=== PATIENT | female | born 1940 | race Caucasian/White ===

== ENCOUNTER 2016-12-20 10:49 | Inpatient (IN) | payer MEDICARE, OTHER ==
[2016-12-20] MEDS ORDERED: Vancomycin 1GM/ Ns 250ML*** 250 ML IV ONE ×2 (11:22→11:33)
--- NOTE | 2016-12-20 11:29 | ERPHSYRPT ---
- History of Present Illness Time Seen by Provider: 12/20/16 11:16 Source: patient Exam Limitations: clinical condition Patient Subjective Stated Complaint: bit by own dog on wednesday on right forearm Triage Nursing Assessment: large open wound to right forearm with slight odor and minimal drainage. redness to area. Physician History: PATIENT WITH HISTORY OF TYPE 2 DIABETES WAS BITTEN OVER HER RIGHT FOREARM 2 DAYS AGO SUSTAINED LACERATIONS, PUNCTURE WOUNDS, PAIN WITH SWELLING, REDNESS AND DRAINAGE. DENIES FEVER, CHILLS OR RED STEAKS. Occurred: days ago Method of Injury: other (DOG BITE FAMILY PET) Severity of Pain-Max: mild Severity of Pain-Current: mild Extremities Pain Location: forearm: right Modifying Factors: Improves With: nothing Allergies/Adverse Reactions: Sulfa (Sulfonamide Antibiotics) Allergy (Mild, Verified 12/20/16 11:00) Hives Home Medications: Aspirin 81 mg PO DAILY 08/19/14 [History] Clonazepam 0.5 mg [Klonopin 0.5 MG] 1 mg PO BID 08/19/14 [History] Glimepiride 2 mg [Amaryl 2 MG] 2 mg PO DAILY 08/19/14 [History] Levothyroxine Sodium 50 Mcg [Synthroid 50 Mcg] 50 mcg PO DAILY 08/19/14 [ History] Metoprolol Succinate 50 mg [Toprol Xl 50 MG] 50 mg PO DAILY 08/19/14 [ History] Sertraline HCl 50 mg [Zoloft 50 mg Tablet] 50 mg PO HS 08/19/14 [History] Ergocalciferol (Vitamin D2) [Vitamin D2] 50,000 unit PO DAILY 12/20/16 [History] Lisinopril 10 mg [Zestril 10 MG] 10 mg PO DAILY 12/20/16 [History] Hx Tetanus, Diphtheria Vaccination/Date Given: Yes (2015) Hx Influenza Vaccination/Date Given: Yes Hx Pneumococcal Vaccination/Date Given: Yes - Review of Systems Constitutional: No Symptoms Respiratory: No Symptoms Cardiac: No Symptoms Abdominal/Gastrointestinal: No Symptoms Genitourinary Symptoms: No Symptoms Musculoskeletal: Injury, Joint Pain, Joint Swelling Skin: Cellulitis Psychological: No Symptoms Endocrine: No Symptoms - Past Medical History Pertinent Past Medical History: Yes Neurological History: Migraines, Peripheral Neuropathy Cardiac History: Hypertension Respiratory History: No Pertinent History Endocrine Medical History: Diabetes Type II, Hypothyroidism, Other Musculoskeletal History: Arthritis, Degenerative Disk Disease, Rheumatoid Arthritis GI Medical History: No Pertinent History History: Other Psycho-Social History: Depression Female Reproductive Disorders: No Pertinent History Other Medical History: neuropathy in L hand, history of UTI, history of ruptured disc in L-spine - Past Surgical History Past Surgical History: Yes Neuro Surgical History: No Pertinent History Cardiac: No Pertinent History Respiratory: No Pertinent History Gastrointestinal: Appendectomy, Cholecystectomy Musculoskeletal: Joint Replacement, Orthopedic Surgery Female Surgical History: Section, Hysterectomy Other Surgical History: L knee replacement, melanoma removed from leg. skin grafts --2009 - Social History Smoking Status: Never smoker Exposure to second hand smoke: No Drug Use: none Patient Lives Alone: No - Nursing Vital Signs Nursing Vital Signs: Initial Vital Signs Temperature Source Oral Pulse Rate 60 Respiratory Rate 18 Blood Pressure [Left Arm] 123/59 Pain Intensity 0 - Physical Exam General Appearance: no apparent distress Cardiovascular/Respiratory Exam: chest non-tender Abdominal Exam: non-tender, soft Back Exam: normal inspection, normal range of motion Wrist Exam: soft tissue tenderness, swelling (THERE IS A 4CM L-SHAPED SUPERFICIAL LACERATION RIGHT FOREARM, DISTAL 3RR FOREARM SURROUNDING ERYTHERMA SWELLING 10CM X 9CM, SEROSANGUINOUS DRAINAGE, RIGHT RADIAL PULSE) Neuro/Tendon Exam: normal sensation Mental Status Exam: alert, oriented x 3 SpO2 Interpretation: normal SpO2: 98 Oxygen Delivery: Room Air Ordered Tests: Active Orders 24 hr Category Date Time Status Up With Assistance ROUTINE Activity 12/20/16 12:17 Ordered Accucheck ACHS Care 12/20/16 12:17 Ordered Admission/Status Order ROUTINE Care 12/20/16 12:17 Ordered Call Admit Doctor for Orders ON ADMISSION Care 12/20/16 12:19 Ordered Code Status Order ROUTINE Care 12/20/16 12:17 Ordered IV Care Q6H Care 12/20/16 12:17 Ordered IV Insertion STAT Care 12/20/16 11:21 Active Vital Signs Q4H Care 12/20/16 12:17 Ordered Wound Care STAT Care 12/20/16 12:23 Ordered 1800 Calorie ADA Diet 12/20/16 Dinner Ordered FOREARM Stat Exams 12/20/16 11:31 Taken BLOOD CULTURE Stat Lab 12/20/16 11:35 Received BMP Stat Lab 12/20/16 11:30 Completed CBC W DIFF Stat Lab 12/20/16 11:30 Completed CULTURE,WOUND Stat Lab 12/20/16 11:21 Ordered Transfer Order Routine Transfer 12/20/16 12:16 Ordered Medication Summary Generic Name Dose Route Start Last Admin Trade Name Rey PRN Reason Stop Dose Admin Sodium Chloride 1,000 mls @ 100 mls/hr 12/20/16 11:30 12/20/16 11:36 Sodium Chloride 0.9% 1000 Ml IV 01/19/17 11:29 100 mls/hr .Q10H CALLIE Administration Vancomycin HCl 250 mls @ 167 mls/hr 12/20/16 11:22 12/20/16 11:36 Vancomycin 1gm/ Ns 250ml IV 12/20/16 12:51 167 mls/hr STAT ONE Administration Discontinued Medications Generic Name Dose Route Start Last Admin Trade Name Rey PRN Reason Stop Dose Admin Vancomycin HCl Confirm 12/20/16 11:33 Vancomycin 1gm/ Ns 250ml Administered 12/20/16 11:34 Dose 250 mls @ ud IV .STK-MED ONE Lab/Rad Data: Laboratory Result Diagrams 12/20/16 11:30 12/20/16 11:30 Laboratory Results 12/20/16 12/20/16 Range/Units 11:30 11:30 WBC 9.9 (4.0-10.5) K/mm3 RBC 4.68 (4.1-5.4) M/mm3 Hgb 13.8 (12.0-16.0) gm/dl Hct 42.4 (35-47) % MCV 90.6 (78-100) fl MCH 29.5 (26-32) pg MCHC 32.5 (32-36) g/dl RDW 14.5 H (11.5-14.0) % Plt Count 189 (150-450) K/mm3 MPV 11.4 H (6-9.5) fl Gran % 74.5 H (36.0-66.0) % Lymphocytes % 11.7 L (24.0-44.0) % Monocytes % 9.7 (0.0-12.0) % Eosinophils % 3.7 (0.00-5.0) % Basophils % 0.4 (0.0-0.4) % Basophils # 0.04 (0-0.4) Sodium 137 (136-145) mEq/L Potassium 4.4 (3.5-5.1) mEq/L Chloride 101 (98-107) mEq/L Carbon Dioxide 27.0 (21-32) mEq/L Anion Gap 13.1 (5-15) MEQ/L BUN 16 (9-20) mg/dL Creatinine 1.20 (0.55-1.30) mg/dl Estimated GFR 46 ML/MIN Glucose 227 H (70-110) MG/DL Calcium 9.0 (8.5-10.1) mg/dL - Progress Progress Note: 12/20/16 11:29 TETNUS STATUS UP TO DATE, PATIENT GIVEN IV FLUIDS, NORMAL SALINE 100ML/HR, VACOMYCIN 1GM IVPB AFTER 2 SETS OF BLOOD CULTURES OBTAINED Discussed with DrAnthony: Jaye Blanc (AT 1213 FOR OBSERVATION) Will see patient in: hospital (observation) - Departure Time of Disposition: 11:25 Departure Disposition: Observation Clinical Impression: CELLULITIS RIGHT FOREARM, DOG BITE RIGHT FOREARM Condition: Stable Critical Care Time: No Referrals: FAY PIEDRA MD [Primary Care Provider] -
[2016-12-20] MEDS ORDERED: Sodium Chloride 0.9% 1000 ML 1,000 ML IV SCH (11:30)
[2016-12-20 11:51] LABS: BASOPHIL % 0.4 % (0.0-0.4); Eosinophil % 3.7 % (0.00-5.0); Granulocytes % 74.5 % (36.0-66.0); Lymphocytes % 11.7 % (24.0-44.0); Mean Cell Volume 90.6 fl (78-100); Mean Corpuscular Hemoglobin 29.5 pg (26-32); Mean Platelet Volume 11.4 fl (6-9.5); Monocytes % 9.7 % (0.0-12.0); Platelet Count 189 K/mm3 (150-450); Red Blood Count 4.68 M/mm3 (4.1-5.4); Red Cell Distribution Width 14.5 % (11.5-14.0); White Blood Count 9.9 K/mm3 (4.0-10.5)
[2016-12-20 11:56] LABS: ANION GAP 13.1 MEQ/L (5-15); Potassium 4.4 mEq/L (3.5-5.1)
[2016-12-20] MEDS ORDERED: MORPHINE SULFATE 4 MG INJ IV PRN (12:17)
[2016-12-20] MEDS ORDERED: TYLENOL 325 MG PO PRN (12:17)
[2016-12-20] MEDS ORDERED: Zofran 4 MG/2 ML VIAL IV PRN (12:17)
[2016-12-20] MEDS ORDERED: Cleocin Phosphate IV 600 MG/4 ML IV SCH (14:00)
[2016-12-20] MEDS: Zosyn 3.375GM/100 Ml D5W 100 ML IV SCH ×3 (14:06→23:26)
[2016-12-20] MEDS: ECOTRIN 81 MG PO SCH (14:57)
[2016-12-20] MEDS: ENOXAPARIN SODIUM SQ SCH (14:57)
[2016-12-20] MEDS: CLINDAMYCIN-D5W 900 MG/50 ML*** 50 ML IV SCH ×2 (15:09→22:10)
[2016-12-20] MEDS: Sodium Chloride 0.9% 1000 ML 1,000 ML IV SCH (16:01)
[2016-12-20] MEDS: NovoLOG Insulin SQ PRN (16:20)
[2016-12-20] MEDS ORDERED: PHARMACY DOSING REQUIRED: VANCOMYCIN IV SCH (19:00)
--- NOTE | 2016-12-20 20:43 | XRAY ---
Indication: Distal forearm dog bite. Comparison: None 2 views of the right forearm demonstrates distal anterior soft tissue swelling presumed dog bite. No underlying acute fracture, dislocation, or radiopaque foreign body. 3 mm soft tissue calcification adjacent to the lateral epicondyle either degenerative versus granulomatous.
[2016-12-20] MEDS ORDERED: Klonopin 0.5 MG PO SCH (22:00)
[2016-12-20] MEDS: ZOLOFT 50 MG TABLET PO SCH (22:09)
[2016-12-20] MEDS: Klonopin 0.5 MG PO SCH (22:10)
[2016-12-21] MEDS: Sodium Chloride 0.9% 1000 ML 1,000 ML IV SCH ×2 (03:45→17:17)
[2016-12-21] MEDS: CLINDAMYCIN-D5W 900 MG/50 ML*** 50 ML IV SCH ×3 (05:00→22:24)
[2016-12-21] MEDS: Zosyn 3.375GM/100 Ml D5W 100 ML IV SCH ×3 (05:33→18:37)
[2016-12-21] MEDS: VANCOCIN 1 GM VIAL*** 1 GM in Sodium Chloride 0.9% 250 ML 250 ML IV SCH (06:38)
[2016-12-21] MEDS ORDERED: DIPRIVAN 200 MG/20 ML IV ONE (08:00)
[2016-12-21] MEDS ORDERED: Decadron 4 MG INJ IV ONE (08:00)
[2016-12-21] MEDS ORDERED: SUBLIMAZE 100 MCG/2 ML IV ONE (08:00)
[2016-12-21] MEDS ORDERED: TORAdol 30 mg Injection IJ ONE (08:00)
[2016-12-21] MEDS ORDERED: Zofran 4 MG/2 ML VIAL IV ONE (08:00)
[2016-12-21] MEDS: Amaryl 2 MG PO SCH (08:42)
--- NOTE | 2016-12-21 09:16 | HP ---
HISTORY OF PRESENT ILLNESS: Kim Mahajan is a 76 year old woman with past medical history of hypertension, coronary artery disease, diabetes mellitus, anxiety, hypothyroidism and obesity. She was reportedly bitten by her own dog on 12/18/2016. The dog bit her on the right forearm and she sustained wounds from that in that area. She started having increasing pain, swelling, redness and also odor and drainage from the wound this morning. She presented to the emergency room with the same. Upon initial evaluation in the emergency room she was noted to have blood pressure of 123/59, heart rate 60, respiratory rate 18. Upon initial evaluation in the emergency room she was noted to have 4 cm size laceration in the right forearm area with large area of surrounding erythema, edema. She was treated with Vancomycin IV x1. Subsequently she is being admitted for further monitoring and management. At the time of this evaluation the patient was still in the emergency room. She complained of pain, swelling, redness in right forearm area. She also complained of drainage and foul smell from area of laceration. PAST MEDICAL HISTORY: Prior history of dog bite. The patient also history of rheumatoid arthritis, degenerative disc disease, neuropathy in left hand, ruptured disc in lumbar spine. PAST SURGICAL HISTORY: Appendectomy, cholecystectomy, bilateral knee surgery, section, hysterectomy. ALLERGIES: SULFA. MEDICATIONS: Current medications were reviewed. FAMILY HISTORY: Noncontributory. SOCIAL HISTORY: The patient lives at home. No history of smoking. REVIEW OF SYSTEMS: Denies headache or dizziness. Denies fever. Denies chest pain, increased shortness of breath or cough. Denies abdominal pain, nausea or vomiting. Denies constipation or diarrhea. Denies urinary complaints. Complains of pain, swelling, foul smelling, pain and redness in right forearm area, wound with foul smelling discharge present in right forearm. PHYSICAL EXAMINATION: An elderly woman lying comfortably in bed, not in acute distress. VITAL SIGNS: Blood pressure 123/59, heart rate 60, respiratory rate 18. HEENT: Normocephalic. Pallor or icterus is noted. NECK: No JVD is present. CVS: S1, S2 present. RESPIRATORY: Breath sounds are bilaterally diminished and clear to auscultation. ABDOMEN: Soft, nontender. NEURO: She is alert, oriented x3. EXTREMITIES: No edema on bilateral lower extremities. Examination of right forearm reveals edema, erythema, locally increased temperature in distal right forearm. A 4 x 0.8 cm wide laceration superficial laceration is present distal part of right forearm. Scanty serosanguinous drainage is present, foul smelling discharge is present. Other smaller areas of about 2 to 3 mm size areas of bite way are noted near this laceration. Local tenderness is present. Radial pulses are felt. Examination of right wrist reveals no redness, no swelling. Range of movement of right wrist is not painful. Examination of right hand reveals no swelling, redness, tenderness. Range of motion of right hand is free. The rest of right forearm area shows, except noted above, shows no redness, tenderness or swelling. LABORATORY DATA AND TESTS: Labs on admission were essentially unremarkable. The patient underwent forearm x-rays results of which are not available at this time. ASSESSMENT: A 76 year old man with impression: 1) Cellulitis of right forearm. 2) Dog bite, right forearm. 3) Diabetes mellitus. 4) Hypertension/coronary artery disease. 5) Anxiety. 6) Hypothyroidism. 7) Hyperlipidemia. PLAN: The patient is being admitted for further monitoring and management. The patient is updated on her tetanus. Continue broad spectrum IV antibiotics. Will add Clindamycin. Continue to follow CBC and electrolytes. Local wound care. Will follow up x-ray. Likely need additional work up including possible CT scan of the area was discussed with the patient. Will likely obtain surgical consultation if symptoms persist. The patient's clinical condition, work up results and plan of management was discussed with her. She seems to be in understanding and agreement.
[2016-12-21 09:53] LABS: BASOPHIL % 0.5 % (0.0-0.4); Eosinophil % 5.3 % (0.00-5.0); Mean Cell Volume 91.5 fl (78-100); Mean Corpuscular Hemoglobin 29.9 pg (26-32); Mean Platelet Volume 11.1 fl (6-9.5); Monocytes % 10.2 % (0.0-12.0); Platelet Count 161 K/mm3 (150-450); Red Blood Count 4.01 M/mm3 (4.1-5.4); Red Cell Distribution Width 14.2 % (11.5-14.0); White Blood Count 7.3 K/mm3 (4.0-10.5)
[2016-12-21] MEDS ORDERED: NON-FORMULARY ITEM (Aspirin [Aspirin] 81 MG) PO SCH (10:00)
[2016-12-21] MEDS: Zestril 10 MG PO SCH (10:02)
[2016-12-21] MEDS: SYNTHROID 50 MCG PO SCH (10:02)
[2016-12-21] MEDS: Toprol Xl 50 MG PO SCH (10:02)
[2016-12-21] MEDS: Klonopin 0.5 MG PO SCH ×2 (10:02→21:36)
[2016-12-21 10:37] LABS: ANION GAP 14.4 MEQ/L (5-15); Carbon Dioxide 24.1 mEq/L (21-32); Potassium 4.4 mEq/L (3.5-5.1)
[2016-12-21 10:49] LABS: BILIRUBIN,TOTAL 0.7 mg/dL (0.2-1.0); Total Protein 6.4 gm/dL (6.4-8.2)
--- NOTE | 2016-12-21 11:12 | CONS ---
CONSULT DATE: 12/21/16 This patient was seen, but Dr. Craig was consulted yesterday when he was on-call and asked that I see the patient while I was here doing cases today. HISTORY OF PRESENT ILLNESS: 76 y/o apparently got bit by her dog on 12/18/16 and her dog put to sleep on the following morning. It is the 2nd time she has been bitten. She was bitten on her arm. She had had redness, swelling, and foul odor. She presented to the Emergency Department yesterday. She did not have any drainage per the Emergency Room physician there, but she was admitted and surgical consult was requested. PAST SURGICAL HISTORY: She has had knee replacement in the past, appendectomy, cholecystectomy, she had , hysterectomy. PAST MEDICAL HISTORY: She has had degenerative discs, neuropathy, ruptured disc lumbar area, she has had rheumatoid arthritis. She had a dog biting prior to this one in the past. HOME MEDICATIONS: Aspirin, Klonopin, vitamin D2, Amaryl, Synthroid for some hypothyroidism, Zestril for hypertension, metoprolol, and Sertraline. ALLERGIES: SULFA. FAMILY HISTORY: Negative with regards to this problem. SOCIAL HISTORY: No current smoking or alcohol abuse. PAST SURGICAL HISTORY: REVIEW OF SYSTEMS: Pertinent for the foul smelling discharge, soreness of her wound with some redness. Otherwise, no chest pain or palpitations. She has been on some aspirin in the past, but denies any other blood thinners. 12 systems reviewed per admission assessment. Pertinent for as noted above. She is a little bit overweight. No chest pain or palpitations. Other systems negative or noncontributory other above and per preadmission questionnaire. She is on IV vancomycin, Zosyn, clindamycin. PHYSICAL EXAMINATION: GENERAL: No acute distress. HEENT: Sclerae nonicteric. NECK: No JVD. CHEST: Equal excursion. Nonlabored breathing. CVS: Regular rhythm and rate. ABDOMEN: Soft, nontender. NEURO: Alert, moving extremities grossly symmetrically. EXTREMITIES: Pertinent for the right forearm area. She has got an old flap laceration with area of necrosis more on the radial side of the arm and there is some more foul purulent drainage from the puncture. Some erythema. Some mild tenderness. Some foul odor from the drainage. IMPRESSION: 1. DOG BITE AREA INJURY WITH SOME INFECTION AND SOME TISSUE AREA NECROSIS. FEEL SHE WOULD BENEFIT FROM EXCISIONAL DEBRIDEMENT AND DRAINAGE OF ANY UNDERLYING COLLECTION. Risks and benefits explained in detail, but not limited to, bleeding; infection; risk of ongoing infection or necrosis possibly requiring other procedures or other treatments; general risks of anesthesia, deep vein thrombosis, pulmonary embolism, or pneumonia; general risks of aches and pains; the fact that it will need to be healed by secondary intent as well as continued IV antibiotics afterwards. She understands and agrees to the plan. Will take her to the OR when OR time available later today. Keep her NPO in the meantime. Thank you for the consult.
--- NOTE | 2016-12-21 12:39 | XRAY ---
Indication: Pain, erythema, and swelling. Status post dogbite December 18, 2016. Multiple contiguous axial images obtained through the mid to distal right forearm using 80 cc Isovue 370 contrast. Sagittal and coronal reformatted images obtained. Comparison: None There is mild cutaneous/subcutaneous soft tissue swelling involving the distal forearm anteriorly with also cutaneous laceration and tiny underlying air bubbles. A few air bubbles seen in the deeper soft tissues that may be related to the dogbite but cannot completely exclude airforming bacterial infection. No radiopaque foreign body or walled off fluid collection/abscess. Underlying osseous structures and visualized carpal bones intact. Incidental multifocal carpal degenerative cystic changes and tiny osteophyte of the distal radius. Impression: 1. Distal anterior forearm soft tissues changes presumed from recent trauma as detailed. Deeper soft tissue air bubbles may be related but cannot completely exclude airforming bacterial infection. 2. No underlying walled off fluid collection/abscess or bony abnormalities. 3. Incidental carpal degenerative changes. CT DI 74.34
--- NOTE | 2016-12-21 13:22 | PCM.NOTE ---
Date and Time: 12/21/16 1320 Subjective Assessment: doing ok, pain in right wrist. going for surgical debridement. - Review of Systems Constitutional: No Fever, No Chills Eyes: No Symptoms Ears, Nose, & Throat: No Symptoms Respiratory: No Cough, No Short Of Breath Cardiac: No Chest Pain, No Edema, No Syncope Abdominal/Gastrointestinal: No Abdominal Pain, No Nausea, No Vomiting, No Diarrhea Genitourinary Symptoms: No Dysuria Musculoskeletal: No Back Pain, No Neck Pain Skin: Cellulitis, No Rash Neurological: No Dizziness, No Focal Weakness, No Sensory Changes Psychological: No Symptoms Endocrine: No Symptoms Hematologic/Lymphatic: No Symptoms Immunological/Allergic: No Symptoms Objective Exam General Appearance: no apparent distress, alert Neurologic Exam: alert, oriented x 3, cooperative, normal mood/affect, nml cerebellar function, sensation nml, No motor deficits Skin Exam: normal color, warm, dry Eye Exam: PERRL, EOMI, eyes nml inspection Ears, Nose, Throat Exam: normal ENT inspection, pharynx normal, moist mucous membranes Neck Exam: normal inspection, non-tender, supple, full range of motion Respiratory Exam: normal breath sounds, lungs clear, No respiratory distress Cardiovascular Exam: regular rate/rhythm, normal heart sounds Gastrointestinal/Abdomen Exam: soft, No tenderness, No mass Extremity Exam: normal inspection, normal range of motion, inflammation, joint swelling, swelling Back Exam: normal inspection, normal range of motion, No CVA tenderness, No vertebral tenderness Pelvic Exam: deferred Rectal Exam: deferred OBJECTIVE DATA Vital Signs: Vital Signs - 24 hr Temp Pulse Resp BP Pulse Ox 12/21/16 12:00 98.1 F 62 17 155/65 94 L 12/21/16 07:38 98.2 F 60 18 132/60 96 12/21/16 04:00 98.7 F 70 20 117/55 96 12/21/16 00:00 99.0 F 72 20 122/56 95 12/20/16 20:00 98.5 F 64 20 121/58 98 12/20/16 16:06 97.8 F 84 22 122/58 96 12/20/16 13:21 97.9 F 58 L 16 121/56 96 Pain Assessment - Last Documented Pain Intensity 1 Pain Scale Used 0-10 Pain Scale Intake and Output: Intake & Output 12/19/16 12/20/16 12/21/1604/17 11:59 11:59 11:59 11:59 Intake Total 2557 0 Output Total 2 Balance 2557 -2 Weight 116.12 kg Lab Results: Accuchecks Date 12/21/16 Date 12/20/16 Time 07:30 Time 16:30 Accucheck Value: 178 Accucheck Value: 132 Accucheck Value: 286 Lab Results-Last 24 Hours 12/20/16 12/21/16 12/21/16 Range/Units 13:37 09:50 09:50 WBC 7.3 (4.0-10.5) K/mm3 RBC 4.01 L (4.1-5.4) M/mm3 Hgb 12.0 (12.0-16.0) gm/dl Hct 36.7 (35-47) % MCV 91.5 (78-100) fl MCH 29.9 (26-32) pg MCHC 32.7 (32-36) g/dl RDW 14.2 H (11.5-14.0) % Plt Count 161 (150-450) K/mm3 MPV 11.1 H (6-9.5) fl Gran % 68.0 H (36.0-66.0) % Lymphocytes % 16.0 L (24.0-44.0) % Monocytes % 10.2 (0.0-12.0) % Eosinophils % 5.3 H (0.00-5.0) % Basophils % 0.5 (0.0-0.4) % Basophils # 0.04 (0-0.4) Sodium 139 (136-145) mEq/L Potassium 4.4 (3.5-5.1) mEq/L Chloride 105 (98-107) mEq/L Carbon Dioxide 24.1 (21-32) mEq/L Anion Gap 14.4 (5-15) MEQ/L BUN 12 (9-20) mg/dL Creatinine 1.12 (0.55-1.30) mg/dl Estimated GFR 50 ML/MIN Glucose 192 H (70-110) MG/DL Calcium 8.4 L (8.5-10.1) mg/dL Total Bilirubin 0.7 (0.2-1.0) mg/dL AST 11 L (15-37) U/L ALT 16 (12-78) U/L Alkaline Phosphatase 63 (46-116) U/L Serum Total Protein 6.4 (6.4-8.2) gm/dL Albumin 3.0 L (3.4-5.0) g/dL Prealbumin 23.0 (18.0-35.7) mg/dL Radiology Exams: Radiology Procedures Category Date Time Status CT UPPER EXTREMITY W CONTRAST [CT] Stat Exams 12/21/16 Completed Assessment/Plan (1) Dog bite of right forearm with infection Current Visit: Yes Status: Acute Qualifiers: Encounter type: initial encounter Qualified Code(s): S51.851A - Open bite of right forearm, initial encounter; L08.9 - Local infection of the skin and subcutaneous tissue, unspecified; W54.0XXA - Bitten by dog, initial encounter Assessment & Plan: will continue antibiotics, awaiting surgical intervention Code(s): S51.851A - OPEN BITE OF RIGHT FOREARM, INITIAL ENCOUNTER; L08.9 - LOCAL INFECTION OF THE SKIN AND SUBCUTANEOUS TISSUE, UNSP; W54.0XXA - BITTEN BY DOG, INITIAL ENCOUNTER
[2016-12-21] MEDS ORDERED: Pepcid 20 MG VIAL IV SCH (13:30)
[2016-12-21] MEDS ORDERED: BICITRA 30 ML CUP PO SCH (13:30)
[2016-12-21] MEDS ORDERED: Lactated Ringers 1,000 ML IV SCH (13:30)
[2016-12-21] MEDS: ENOXAPARIN SODIUM SQ SCH (14:14)
[2016-12-21] MEDS: ECOTRIN 81 MG PO SCH (14:14)
[2016-12-21] MEDS ORDERED: MORPHINE SULFATE 4 MG INJ IV PRN (15:22)
[2016-12-21] MEDS ORDERED: NORCO 5/325 MG PO PRN (15:26)
--- NOTE | 2016-12-21 16:03 | OP ---
SURGERY DATE: 12/21/16 SURGERY TIME: 1355 PREOPERATIVE DIAGNOSIS: 1. DOG BITE INJURY WITH CELLULITIS AND TISSUE NECROSIS RIGHT FOREARM. POSTOPERATIVE DIAGNOSIS: 1. DOG BITE INJURY WITH CELLULITIS AND TISSUE NECROSIS RIGHT FOREARM. PROCEDURE: 1. Excisional debridement of skin and subcutaneous fat down to the level of the fascia. Dog bit injury. Four separate wounds right forearm, 4 cm and 1 cm wounds on the radial aspect of the forearm. A 2 cm and a separate 1 cm wound on the ulnar aspect of the forearm, right upper extremity. SURGEON: Dr. Orion Ureña. COMMUNICATIONS SYSTEMS ENGINEER: Osmany Dye MS-III. ANESTHESIA: General. ESTIMATED BLOOD LOSS: Minimal. INDICATIONS: As noted above. Risks and benefits explained in detail, but not limited to. Consent obtained. DESCRIPTION OF PROCEDURE AND FINDINGS: The patient was taken to the OR. General anesthesia was induced. Arm was prepped and draped in the usual sterile fashion. After official time-out, no disagreement in planned procedure. Sharp debridement of some skin necrosis, devitalized subcutaneous fat, and fat necrosis and the largest wound was about 4 cm in the ulnar aspect of the right side of the forearm. Debridement was taken down to viable oozing subcutaneous tissue debriding the skin and subcutaneous tissue of this 4 cm wound. Additionally, there was some purulence draining from an area of some necrosis closer to the wrist and hand area on this radial aspect of the forearm. This too was carefully debrided of skin and devitalized subcutaneous tissue underneath. These tracts ended up undermining together underneath. A copious amount of irrigation irrigating as clear as possible. Debridement had been taken back to viable tissue down to the level of the fascia of this 4 cm and separate 1 cm wounds on the radial aspect of the right forearm. Attention was then turned to the opposite site on the ulnar aspect of the forearm. A larger wound had some foul drainage. Sharp debridement of the skin and underlying devitalized subcutaneous fat with some area of fat tissue necrosis down to the level of the fascia possibly including a small portion of the fascia debriding down to as viable tissue as possible at this juncture. This was again repeated in a smaller puncture wound that was draining purulence and had some tissue necrosis. It was about a cm in size. It was carefully, sharply debrided with the scalpel, skin and subcutaneous tissue down to the level of the fascia. A copious amount of irrigation was irrigated as clear as possible. This wound appeared to be debrided down to bleeding, oozing, viable tissue. A copious amount of irrigation irrigated as clear as possible. The wounds were then packed with Iodoform. To be switched to NS starting tomorrow on a daily basis. Sterile dressing was applied. There was no family available to discuss any findings with. This patient was seen for Dr. Craig who was on-call over the weekend when the consult came in.
[2016-12-21] MEDS: ZOLOFT 50 MG TABLET PO SCH (21:36)
[2016-12-21] MEDS: NovoLOG Insulin SQ PRN (21:37)
[2016-12-22] MEDS: Zosyn 3.375GM/100 Ml D5W 100 ML IV SCH ×4 (00:16→17:51)
[2016-12-22] MEDS: VANCOCIN 1 GM VIAL*** 1 GM in Sodium Chloride 0.9% 250 ML 250 ML IV SCH ×2 (02:27→19:38)
[2016-12-22] MEDS: CLINDAMYCIN-D5W 900 MG/50 ML*** 50 ML IV SCH ×3 (05:37→22:22)
[2016-12-22] MEDS: Amaryl 2 MG PO SCH (07:40)
[2016-12-22] MEDS: NovoLOG Insulin SQ PRN ×3 (07:41→22:36)
[2016-12-22] MEDS: Zestril 10 MG PO SCH (09:07)
[2016-12-22] MEDS: ECOTRIN 81 MG PO SCH (09:07)
[2016-12-22] MEDS: ENOXAPARIN SODIUM SQ SCH (09:07)
[2016-12-22] MEDS: SYNTHROID 50 MCG PO SCH (09:07)
[2016-12-22] MEDS: Klonopin 0.5 MG PO SCH ×2 (09:07→21:33)
[2016-12-22] MEDS: Toprol Xl 50 MG PO SCH (09:07)
[2016-12-22] MEDS: HOLD METFORMIN PRODUCTS FOR 48 HOURS MC SCH (12:41)
--- NOTE | 2016-12-22 12:51 | PCM.NOTE ---
Date and Time: 12/22/16 1248 Subjective Assessment: doing better, s/p I & D right wrist. - Review of Systems Constitutional: No Fever, No Chills Eyes: No Symptoms Ears, Nose, & Throat: No Symptoms Respiratory: No Cough, No Short Of Breath Cardiac: No Chest Pain, No Edema, No Syncope Abdominal/Gastrointestinal: No Abdominal Pain, No Nausea, No Vomiting, No Diarrhea Genitourinary Symptoms: No Dysuria Musculoskeletal: No Back Pain, No Neck Pain Skin: Cellulitis (left wrist), No Rash Neurological: No Dizziness, No Focal Weakness, No Sensory Changes Psychological: No Symptoms Endocrine: No Symptoms Hematologic/Lymphatic: No Symptoms Immunological/Allergic: No Symptoms Objective Exam General Appearance: no apparent distress, alert Neurologic Exam: alert, oriented x 3, cooperative, normal mood/affect, nml cerebellar function, sensation nml, No motor deficits Skin Exam: normal color, warm, dry Eye Exam: PERRL, EOMI, eyes nml inspection Ears, Nose, Throat Exam: normal ENT inspection, pharynx normal, moist mucous membranes Neck Exam: normal inspection, non-tender, supple, full range of motion Respiratory Exam: normal breath sounds, lungs clear, No respiratory distress Cardiovascular Exam: regular rate/rhythm, normal heart sounds Gastrointestinal/Abdomen Exam: soft, No tenderness, No mass Extremity Exam: normal inspection, normal range of motion, inflammation, joint swelling, swelling Back Exam: normal inspection, normal range of motion, No CVA tenderness, No vertebral tenderness Pelvic Exam: deferred Rectal Exam: deferred OBJECTIVE DATA Vital Signs: Vital Signs - 24 hr Temp Pulse Resp BP BP Pulse Ox 12/22/16 12:00 97.7 F 66 18 125/56 95 12/22/16 07:25 97.8 F 64 17 133/62 95 12/22/16 04:00 98.3 F 66 18 132/62 95 12/21/16 23:46 98.0 F 74 17 133/71 95 12/21/16 20:00 98.0 F 76 18 142/66 95 12/21/16 16:56 97.9 F 67 18 150/67 94 L 12/21/16 16:20 98.5 F 66 17 180/72 94 L 12/21/16 16:03 97.4 F 65 16 175/73 92 L 12/21/16 15:08 98.2 F 65 20 178/77 96 12/21/16 13:39 98.1 F 62 17 155/65 94 L Pain Assessment - Last Documented Pain Intensity 1 Pain Scale Used 0-10 Pain Scale Intake and Output: Intake & Output 12/20/16 12/21/16 12/22/16 12/23/16 11:59 11:59 11:59 11:59 Intake Total 1989 360 Balance 1989 Weight 116.12 kg Lab Results: Accuchecks Date 12/22/16 Date 12/21/16 Date 12/21/16 Time 07:30 Time 16:30 Accucheck Value: 227 Accucheck Value: 169 Assessment/Plan (1) Dog bite of right forearm with infection Current Visit: Yes Status: Acute Qualifiers: Encounter type: initial encounter Qualified Code(s): S51.851A - Open bite of right forearm, initial encounter; L08.9 - Local infection of the skin and subcutaneous tissue, unspecified; W54.0XXA - Bitten by dog, initial encounter Assessment & Plan: continue present management Code(s): S51.851A - OPEN BITE OF RIGHT FOREARM, INITIAL ENCOUNTER; L08.9 - LOCAL INFECTION OF THE SKIN AND SUBCUTANEOUS TISSUE, UNSP; W54.0XXA - BITTEN BY DOG, INITIAL ENCOUNTER
[2016-12-22] MEDS: Sodium Chloride 0.9% 1000 ML 1,000 ML IV SCH (16:49)
[2016-12-22] MEDS: ZOLOFT 50 MG TABLET PO SCH (21:33)
[2016-12-23] MEDS: Sodium Chloride 0.9% 1000 ML 1,000 ML IV SCH (00:37)
[2016-12-23] MEDS: Zosyn 3.375GM/100 Ml D5W 100 ML IV SCH ×2 (00:37→06:54)
[2016-12-23] MEDS: CLINDAMYCIN-D5W 900 MG/50 ML*** 50 ML IV SCH (05:16)
[2016-12-23] MEDS: SYNTHROID 50 MCG PO SCH (07:51)
[2016-12-23] MEDS: Toprol Xl 50 MG PO SCH (07:51)
[2016-12-23] MEDS: Amaryl 2 MG PO SCH (07:51)
[2016-12-23] MEDS: ECOTRIN 81 MG PO SCH (07:51)
[2016-12-23] MEDS: Klonopin 0.5 MG PO SCH (07:51)
[2016-12-23] MEDS: Zestril 10 MG PO SCH (07:51)
[2016-12-23] MEDS: ENOXAPARIN SODIUM SQ SCH (09:48)
[2016-12-23] MEDS ORDERED: ROCEPHIN 1 Gm-D5w 50 ml Bag** 1 G/50 ML IVPB IV ONE (10:30)
[2016-12-23] MEDS: NovoLOG Insulin SQ PRN (11:26)
[2016-12-23 11:37] VITALS: BP 173/74; PULSE 55; O2SAT 99
--- NOTE | 2016-12-23 22:10 | PCM.DS ---
Discharge Summary Date of Admission: 12/21/16 13:20 Admitting Physician: ISAIAH FITZGERALD Primary Care Provider: FAY PIEDRA Allergies Allergies Sulfa (Sulfonamide Antibiotics) Allergy (Mild, Verified 12/20/16 13:00) [facility] Hospital Summary - Hospital Course Hospital Course: Chief Complaint Diagnosis ABCESS RIGHT FOREARM WITH I&D Allergies Allergy/AdvReac Type Severity Reaction Status Date / Time Sulfa (Sulfonamide Allergy Mild Hives Verified 12/20/16 13:00 Antibiotics) Vital Signs (Last 24 hours) Temp Pulse Resp BP Pulse Ox 12/23/16 11:36 97.7 F 55 L 20 173/74 99 12/23/16 08:00 97.5 F 56 L 20 177/72 96 12/23/16 04:00 97.8 F 56 L 20 140/64 95 12/23/16 00:00 97.6 F 63 20 145/65 96 Home Medications Medication Instructions Recorded Confirmed Last Taken Type Ergocalciferol (Vitamin D2) 50,000 unit PO WEEKLY 12/20/16 12/20/16 12/19/16 History [Vitamin D2] Lisinopril 10 mg [Zestril 10 10 mg PO DAILY 12/20/16 12/20/16 12/20/16 History MG] Hydrocodone/Acetaminophen [Vina 1 each PO Q4HPRN PRN #24 tablet 12/23/16 Unknown Rx 5-325 Tablet] Current Medications Discontinued Medications Generic Name Dose Route Start Last Admin Trade Name Freq PRN Reason Stop Dose Admin Acetaminophen 650 mg 12/20/16 12:17 Tylenol 325 Mg PO 01/19/17 12:16 Q4H PRN PRN PAIN AND/OR FEVER Acetaminophen/Hydrocodone Bitart 0 tab 12/21/16 15:26 12/21/16 21:40 Vina 5/325 Mg PO 12/26/16 15:25 1 tab Q4H PRN PRN Administration PAIN Aspirin 81 mg 12/20/16 15:00 12/23/16 07:51 Ecotrin 81 Mg PO 01/19/17 14:59 81 mg DAILY CALLIE Administration Citric Acid/Sodium Citrate 30 ml 12/21/16 13:30 12/21/16 13:36 Bicitra 30 Ml Cup PO 12/21/16 13:31 30 ml 1HRPRIOR CALLIE Administration Clonazepam 1 mg 12/20/16 22:00 12/23/16 07:51 Klonopin 0.5 Mg PO 01/19/17 21:59 1 mg BID CALLIE Administration Dexamethasone Sodium Phosphate 4 mg 12/21/16 08:00 Decadron 4 Mg Inj IV 12/21/16 08:01 .STK-MED ONE Enoxaparin Sodium 40 mg 12/20/16 15:00 12/23/16 09:48 Enoxaparin Sodium SQ 01/19/17 14:59 40 mg DAILY CALLIE Administration Ergocalciferol 50,000 unit 12/26/16 10:00 Vitamin D2 PO 01/25/17 09:59 WEEKLY CALLIE Famotidine 40 mg 12/21/16 13:30 12/21/16 13:36 Pepcid 20 Mg Vial IV 12/21/16 13:31 40 mg 1HRPRIOR CALLIE Administration Fentanyl Citrate 100 mcg 12/21/16 08:00 Sublimaze 100 Mcg/2 Ml IV 12/21/16 08:01 .STK-MED ONE Glimepiride 2 mg 12/21/16 08:00 12/23/16 07:51 Amaryl 2 Mg PO 01/20/17 07:59 2 mg BREAKFAST CALLIE Administration Sodium Chloride 1,000 mls @ 100 mls/hr 12/20/16 11:30 12/20/16 11:36 Sodium Chloride 0.9% 1000 Ml IV 01/19/17 11:29 100 mls/hr .Q10H CALLIE Administration Vancomycin HCl 250 mls @ 167 mls/hr 12/20/16 11:22 12/20/16 11:36 Vancomycin 1gm/ Ns 250ml IV 12/20/16 12:51 167 mls/hr STAT ONE Administration Vancomycin HCl Confirm 12/20/16 11:33 Vancomycin 1gm/ Ns 250ml Administered 12/20/16 11:34 Dose 250 mls @ ud IV .STK-MED ONE Piperacillin Sod/Tazobactam Sod 100 mls @ 100 mls/hr 12/20/16 13:00 12/23/16 06:54 Zosyn 3.375gm/100 Ml D5w IV 01/19/17 12:59 100 mls/hr Q6HT CALLIE Administration Sodium Chloride 1,000 mls @ 75 mls/hr 12/20/16 12:30 12/23/16 00:37 Sodium Chloride 0.9% 1000 Ml IV 01/19/17 12:29 75 mls/hr .[id number] CALLIE Administration Clindamycin HCl/Dextrose 50 mls @ 100 mls/hr 12/20/16 14:00 12/23/16 05:16 Clindamycin-D5w 900 Mg/50 Ml IV 01/19/17 13:59 100 mls/hr Q8HT CALLIE Administration Vancomycin HCl 1 gm/ Sodium 250 mls @ 167 mls/hr 12/21/16 06:00 12/22/16 19: 38 Chloride IV 01/20/17 05:59 167 mls/hr Q18H CALLIE Administration Lactated Ringer's 1,000 mls @ 50 mls/hr 12/21/16 13:30 12/21/16 13:36 Lactated Ringers IV 12/22/16 09:29 50 mls/hr .Q20H CALLIE Administration Ceftriaxone Sodium/Dextrose 1 g in 50 mls @ 100 mls/hr 12/23/16 10:30 10:33 Rocephin 1 Gm-D5w 50 Ml Bag IV 12/23/16 10:59 100 mls/hr ONCE ONE Administration Insulin Aspart 0 unit 12/20/16 16:00 12/23/16 11:26 Novolog Insulin SQ 01/19/17 15:59 2 unit UD PRN Administration HYPERGLYCEMIA Ketorolac Tromethamine 30 mg 12/21/16 08:00 Toradol 30 Mg Injection IJ 12/21/16 08:01 .STK-MED ONE Levothyroxine Sodium 50 mcg 12/21/16 10:00 12/23/16 07:51 Synthroid 50 Mcg PO 01/20/17 09:59 50 mcg DAILY CALLIE Administration Lisinopril 10 mg 12/21/16 10:00 12/23/16 07:51 Zestril 10 Mg PO 01/20/17 09:59 10 mg DAILY CALLIE Administration Metoprolol Succinate 50 mg 12/21/16 10:00 12/23/16 07:51 Toprol Xl 50 Mg PO 01/20/17 09:59 50 mg DAILY CALLIE Administration Morphine Sulfate 4 mg 12/20/16 12:17 Morphine Sulfate 4 Mg Inj IV 12/25/16 12:16 Q4H PRN PRN PAIN Morphine Sulfate 3 mg 12/21/16 15:22 12/22/16 09:06 Morphine Sulfate 4 Mg Inj IV 12/25/16 12:16 3 mg Q1H PRN PRN Administration PAIN Non-Formulary Medication 1 each 12/20/16 19:00 Pharmacy Dosing Required: Vancomycin IV 12/20/16 19:01 Q12HRT CALLIE Non-Formulary Medication 1 each 12/21/16 11:30 12/22/16 12:41 Hold Metformin Products For 48 Hours 12/22/16 10:01 Not Given DAILY CALLIE Ondansetron HCl 4 mg 12/20/16 12:17 Zofran 4 Mg/2 Ml Vial IV 01/19/17 12:16 Q6H PRN PRN NAUSEA/VOMITING Ondansetron HCl 4 mg 12/21/16 08:00 Zofran 4 Mg/2 Ml Vial IV 12/21/16 08:01 .STK-MED ONE Propofol 200 mg 12/21/16 08:00 Diprivan 200 Mg/20 Ml IV 12/21/16 08:01 .STK-MED ONE Sertraline HCl 50 mg 12/20/16 22:00 12/22/16 21:33 Zoloft 50 Mg Tablet PO 01/19/17 21:59 50 mg HS CALLIE Administration Intake & Output (Last 24 hours) 12/21/16 12/22/16 12/23/16 12/24/16 11:59 11:59 11:59 11:59 Intake Total 2557 1989 3477 Output Total 2 Balance 7 1987 3477 Weight 116.12 kg 116.12 kg Orders (Last 24 hours) Category Date Time Status Ceftriaxone 1 GM/50 ML PREMIX* [ROCEPHIN 1 Gm-D5w 50 ml Med 12/23/16 10:30 Discontinued Bag] 1 g in 50 ml IV ONCE Ergocalciferol (Vitamin D2) [Vitamin D2] Med 12/26/16 10:00 Discontinued 50,000 unit PO WEEKLY Patient Care Notes (Last 24 hours) 12/23/16 12:24 Nursing Note by Alyssa Warren pt ate well for lunch, taken out to her car by nurse. Initialized on 12/23/16 12:24 - END OF NOTE 12/23/16 11:43 Nursing Note by Alyssa Warren discharge instructions given, good understanding noted of follow up appts., discharge meds (script x 1), and outpatient IV antibx tx and dressing changes. saline lock left in left wrist per MD order for IV tx. pt instructed to keep saline lock dry, and to hold pressure on site if it comes out. also instructed per nurse and PT to keep right wound/incision site dry, good understanding noted. pt will eat lunch here and then drive herself home. Initialized on 12/23/16 11:43 - END OF NOTE 12/23/16 10:51 Nursing Note by Alyssa Warren right FA dressing changed per Tricia Antonio PT, jagged openings noted to lateral right FA, small amt serous drainage noted on old dressing per PT, cleansed with hibiclens and dressed (see her notes). pt sue well, Rocephin infusing. Initialized on 12/23/16 10:51 - END OF NOTE 12/23/16 10:06 Nursing Note by Alyssa Warren verbal order from Tameka HUMMEL/Dr. Piedra to discontinue vanc, zosyn, and clindamycin now and give 1 gram Rocephin IVPB before discharge. med nurse made aware. Initialized on 12/23/16 10:06 - END OF NOTE 12/23/16 09:39 Nursing Note by Alyssa Warren see full AM assessment, pt denies c/o, Dr. Piedra made rounds, plans for discharge with OP IV antibx, pt in agreement with this plan. verbal order to leave saline lock in at discharge. Addendum entered by Alyssa Warren 12/23/16 09:40: pt agreeable to leaving saline lock in for therapy Initialized on 12/23/16 09:39 - END OF NOTE 12/23/16 00:54 Nursing Note by Kody Elise Secondary tubing was pulled out of bag when patient was up to bathroom, IV fluids leaked on floor. Pt returned to bed safely. Called housekeeping to mop IV fluids, replaced IV bag of NS. Initialized on 12/23/16 00:54 - END OF NOTE Patient was admitted with dog bite on right lower forearm, wrist. Patient underwent wound exploration by DR Romero. Patient did well. Patient will be discharged home with outpatient ceftriaxone 1 gm IM for 10 days. Patient will follow up with DR Moises Piedra in 1 week - Vitals & Intake/Output Vital Signs: Vital Signs Temperature 97.7 F 12/23/16 11:36 Pulse Rate 55 L 12/23/16 11:36 Respiratory Rate 20 12/23/16 11:36 Blood Pressure 173/74 12/23/16 11:36 O2 Sat by Pulse Oximetry 99 12/23/16 11:36 Intake & Output: Intake & Output 12/21/16 12/22/16 12/23/16 12/24/16 11:59 11:59 11:59 11:59 Intake Total 1989 3478 Balance 1989 3477 Weight 116.12 kg - Lab Result Diagrams: 12/21/16 09:50 12/21/16 09:50 Lab Results-Last 24 Hrs: Accuchecks Date 12/23/16 Date 12/23/16 Time 11:30 Time 07:30 Accucheck Value: 207 Accucheck Value: 162 Micro Results-Entire Visit: Accuchecks Date 12/23/16 Date 12/23/16 Time 11:30 Time 07:30 Accucheck Value: 207 Accucheck Value: 162 Discharge Exam General Appearance: no apparent distress, alert Neurologic Exam: alert, oriented x 3, cooperative, normal mood/affect, nml cerebellar function, sensation nml, No motor deficits Skin Exam: normal color, warm, dry Eye Exam: PERRL, EOMI, eyes nml inspection Ears, Nose, Throat Exam: normal ENT inspection, pharynx normal, moist mucous membranes Neck Exam: normal inspection, non-tender, supple, full range of motion Respiratory Exam: normal breath sounds, lungs clear, No respiratory distress Cardiovascular Exam: regular rate/rhythm, normal heart sounds Gastrointestinal/Abdomen Exam: soft, No tenderness, No mass Extremity Exam: normal inspection, normal range of motion Back Exam: normal inspection, normal range of motion, No CVA tenderness, No vertebral tenderness Pelvic Exam: deferred Rectal Exam: deferred Final Diagnosis/Problem List - Final Discharge Diagnosis/Problem (1) Dog bite of right forearm with infection Status: Acute Assessment & Plan: See disscharge summary - Discharge Discharge Date: 12/23/16 Disposition: Home, Self-Care Condition: Stable Prescriptions: New Hydrocodone/Acetaminophen [Vina 5-325 Tablet] 1 each PO Q4HPRN PRN #24 tablet PRN Reason: Pain Continue Clonazepam 0.5 mg [Klonopin 0.5 MG] 1 mg PO BID Sertraline HCl 50 mg [Zoloft 50 mg Tablet] 50 mg PO HS Metoprolol Succinate 50 mg [Toprol Xl 50 MG] 50 mg PO DAILY Levothyroxine Sodium 50 Mcg [Synthroid 50 Mcg] 50 mcg PO DAILY Glimepiride 2 mg [Amaryl 2 MG] 2 mg PO DAILY Aspirin 81 mg PO DAILY Ergocalciferol (Vitamin D2) [Vitamin D2] 50,000 unit PO WEEKLY Lisinopril 10 mg [Zestril 10 MG] 10 mg PO DAILY Instructions: Animal Bites, Incision and Drainage of a Skin Abscess Additional Instructions: PLEASE ARRIVE AT [facility] TOMORROW, 12/24/16 AT 8:30 AM , FOR YOUR IV ANTIBIOTIC AND DRESSING CHANGE. YOU WILL NEED TO ARRIVE A FEW MINUTES EARLY TO REGISTER THE FIRST TIME. Follow up with: LISA ELDER [COURTESY STAFF] - 01/04/17 8:50 am ([facility]) FAY PIEDRA MD [Primary Care Provider] - 12/31/16 1:00 pm ([facility]) Forms: Discharge Instructions
[2016-12-24] MEDS ORDERED: TROUGH DRUG LEVELS IJ ONE (11:30)
[2016-12-26] MEDS ORDERED: VITAMIN D2 PO SCH (10:00)
== END 2016-12-23 12:20 | disposition home or self-care (01) | DRG 571 ==
LOC: ED 10:49 → MED SURG 12:41 → OBSVTOIN 12-21 13:20
PROVIDERS: ADMIT General Practice; ATTEND General Practice
PROC: 0JBD0ZZ Excision of Right Upper Arm Subcutaneous Tissue and Fascia, Open Approach (ICD-10-PCS; principal; 2016-12-21)
DX: S51.851A Open bite of right forearm, initial encounter (principal); L03.113 Cellulitis of right upper limb; W54.0XXA Bitten by dog, initial encounter; Y93.89 Activity, other specified; Y92.099 Unspecified place in other non-institutional residence as the place of occurrence of the external cause; Z79.899 Other long term (current) drug therapy; I10 Essential (primary) hypertension; I25.10 Atherosclerotic heart disease of native coronary artery without angina pectoris; E11.9 Type 2 diabetes mellitus without complications; F41.9 Anxiety disorder, unspecified; E03.9 Hypothyroidism, unspecified; E78.5 Hyperlipidemia, unspecified; E66.9 Obesity, unspecified; M06.9 Rheumatoid arthritis, unspecified; G62.9 Polyneuropathy, unspecified
CPT/HCPCS: 00400; 36000; 36415; 73090; 73201; 80048; 80053; 82962; 83036; 84134; 85025; 87040; 87070; 88304; 96360; 96361; 96365; 99100; 99285; G0378; J0696; J1100; J1650; J1885; J2270; J2405; J2543; J2704; J3010; J3370; A9270-GY

== ENCOUNTER 2019-03-13 15:59 | Inpatient (IN) | payer MEDICARE, OTHER ==
[2019-03-13] MEDS ORDERED: MORPHINE SULFATE 4 MG INJ IV ONE (16:45)
[2019-03-13 16:50] LABS: BASOPHIL % 0.4 % (0.0-0.4); Basophil (Absolute #) 0.03 (0-0.4); Eosinophil % 2.6 % (0.00-5.0); Eosinophil (Absolute #) 0.19 (0-0.5); Granulocytes % 77.3 % (36.0-66.0); Hematocrit 38.9 % (35-47); Hemoglobin 13.1 gm/dl (12.0-16.0); Lymphocyte (Absolute #) 0.94 (1.0-4.6); Lymphocytes % 12.7 % (24.0-44.0); Mean Cell Volume 88.8 fl (78-100); Mean Corpuscular Hemoglobin 29.9 pg (26-32); Mean Corpuscular Hgb Concent. 33.7 g/dl (32-36); Mean Platelet Volume 10.5 fl (6-9.5); Monocyte (Absolute #) 0.52 (0.0-1.3); Platelet Count 218 K/mm3 (150-450); Red Blood Count 4.38 M/mm3 (4.1-5.4); Red Cell Distribution Width 14.4 % (11.5-14.0); White Blood Count 7.4 K/mm3 (4.0-10.5)
--- NOTE | 2019-03-13 16:51 | ERPHSYRPT ---
- History of Present Illness Time Seen by Provider: 03/13/19 16:34 Historian: patient, EMS Exam Limitations: no limitations Patient Subjective Stated Complaint: patietn states she is feeling nauseated and weak. Triage Nursing Assessment: pt is alert and oriented, weakness in limbs , able to sit up and respond but says shes weak when walking , edema lower extremities , bowel sounds present x4, skin warm dry and intact Physician History: 79-year-old white female arrives with complaint of vomiting feeling nausea and feeling weak symptoms since this afternoon patient states that she got up she was upper-outer an hour and half and she began to have nausea and vomiting she states she had a headache. She apparently tried to drink some coffee and he cut his she is vomited them up she was given Zofran by the medics she has no fevers no chest pain she has not had any problems moving. Past medical history includes migraines, cataracts, diabetes type 2, hypothyroidism, high blood pressure, GERD, osteoarthritis, depression, UTI patient is short of breath at times. 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 . Timing/Duration: today Activities at Onset: none Quality: other (no belly pain) Pain Radiation: no radiation Severity of Pain-Max: none Severity of Pain-Current: none Modifying Factors: Improves With: nothing Associated Symptoms: headache, nausea, No back, No chest pain, No diaphoresis, No diarrhea, No fever/chills, No fatigue, No heartburn, No loss of appetite, No neck pain, No rash, No shortness of breath, No syncope, No vomiting, No weakness Previous symptoms: no prior history Allergies/Adverse Reactions: Sulfa (Sulfonamide Antibiotics) Allergy (Mild, Verified 12/24/16 08:47) Hives Home Medications: Aspirin 81 mg PO DAILY 08/19/14 [History] Clonazepam 0.5 mg [Klonopin 0.5 MG] 1 mg PO BID 08/19/14 [History] Glimepiride 2 mg [Amaryl 2 MG] 2 mg PO DAILY 08/19/14 [History] Levothyroxine Sodium 50 Mcg [Synthroid 50 Mcg] 50 mcg PO DAILY 08/19/14 [ History] Metoprolol Succinate 50 mg [Toprol Xl 50 MG] 50 mg PO DAILY 08/19/14 [ History] Sertraline HCl 50 mg [Zoloft 50 mg Tablet] 50 mg PO HS 08/19/14 [History] Ergocalciferol (Vitamin D2) [Vitamin D2] 50,000 unit PO WEEKLY 12/20/16 [History ] Lisinopril 10 mg [Zestril 10 MG] 10 mg PO DAILY 12/20/16 [History] Hx Tetanus, Diphtheria Vaccination/Date Given: Yes Hx Influenza Vaccination/Date Given: Yes Hx Pneumococcal Vaccination/Date Given: Yes Immunizations Up to Date: Yes - Review of Systems Constitutional: No Fever, No Chills Eyes: No Symptoms Ears, Nose, & Throat: No Symptoms Respiratory: No Cough, No Dyspnea Cardiac: No Chest Pain, No Edema, No Syncope Abdominal/Gastrointestinal: Nausea, Vomiting Genitourinary Symptoms: No Symptoms Musculoskeletal: No Back Pain, No Neck Pain Skin: No Rash Neurological: Headache, No Dizziness, No Focal Weakness, No Gait Changes, No Irritability, No Lethargy, No Paralysis, No Parasthesia, No Seizure, No Sensory Changes, No Speech Changes, No Tics, No Tremors, No Vertigo Psychological: No Symptoms Endocrine: No Symptoms All Other Systems: Reviewed and Negative - Past Medical History Pertinent Past Medical History: Yes Neurological History: Migraines ENT History: Cataracts Cardiac History: Hypertension Respiratory History: No Pertinent History Endocrine Medical History: Diabetes Type II, Hypothyroidism, Other Musculoskeletal History: Osteoarthritis GI Medical History: GERD History: Other Psycho-Social History: Depression Female Reproductive Disorders: No Pertinent History Other Medical History: history of UTIs. SOB at times. B TKA - Past Surgical History Past Surgical History: Yes Neuro Surgical History: No Pertinent History Cardiac: No Pertinent History Respiratory: No Pertinent History Gastrointestinal: Appendectomy, Cholecystectomy Genitourinary: No Pertinent History Musculoskeletal: Joint Replacement, Orthopedic Surgery Female Surgical History: Section, Hysterectomy Other Surgical History: bilateral knee replacements, melanoma removed from leg. skin grafts --2008 - Social History Smoking Status: Never smoker Exposure to second hand smoke: No Drug Use: none Patient Lives Alone: Yes - Female History Hx Now: No - Nursing Vital Signs Nursing Vital Signs: Initial Vital Signs Temperature 97.7 F 03/13/19 15:59 Pulse Rate 58 L 03/13/19 15:59 Respiratory Rate 18 03/13/19 15:59 Blood Pressure 169/61 03/13/19 15:59 O2 Sat by Pulse Oximetry 99 03/13/19 15:59 Pain Scale Pain Intensity 4 - Physical Exam General Appearance: mild distress, alert, obese Eye Exam: PERRL/EOMI, eyes nml inspection Ears, Nose, Throat Exam: normal ENT inspection, pharynx normal, moist mucous membranes Neck Exam: normal inspection, non-tender, supple, full range of motion Respiratory Exam: normal breath sounds, lungs clear, No respiratory distress Cardiovascular Exam: regular rate/rhythm, normal heart sounds, capillary refill <2 sec Gastrointestinal/Abdomen Exam: soft, No tenderness, No mass Back Exam: normal inspection, normal range of motion, No CVA tenderness, No vertebral tenderness Extremity Exam: normal inspection, normal range of motion, pelvis stable Neurologic Exam: alert, oriented x 3, cooperative, guest service team leader II-XII nml as tested, normal mood/affect, nml cerebellar function, sensation nml, No motor deficits Skin Exam: normal color, warm, dry SpO2 Interpretation: normal (99%) SpO2: 99 - Course Nursing assessment & vital signs reviewed: Yes EKG Interpreted by Me: RATE (56 bpm), Sinus Rinku, NORMAL AXIS, Other (EKG: Sinus bradycardia, 56 beats per minute, normal axis, no acute ST or T wave changes noted) - CT Exams Head CT Interpretation: Discussed w/radiologist (head CT: Impression nonacute senile brain) Abdomen/Pelvis CT Interpretation: Discussed w/radiologist (CT abdomen and pelvis: Mild left hydronephrosis with perinephric stranding but no calculus. Possible recent passage calculus versus infection. Tiny air bubbles in the urinary bladder either recent catheterization versus infection. Stable hepatosplenomegaly. Left adrenal adenoma. And sigmoid diverticulosis.) Ordered Tests: Active Orders 24 hr Category Date Time Status EKG-ER Only STAT Care 03/13/19 16:45 Active IV Insertion STAT Care 03/13/19 16:45 Active ABDOMEN AND PELVIS W/0 CONTRAS [CT] Stat Exams 03/13/19 17:57 Taken HEAD WITHOUT CONTRAST [CT] Stat Exams 03/13/19 16:46 Completed AMYLASE Stat Lab 03/13/19 16:48 Completed BLOOD CULTURE Stat Lab 03/13/19 18:40 Received CBC W DIFF Stat Lab 03/13/19 16:48 Completed CMP Stat Lab 03/13/19 16:48 Completed CULTURE,URINE Stat Lab 03/13/19 18:00 Received LIPASE Stat Lab 03/13/19 16:48 Completed TROPONIN Q3H Lab 03/13/19 16:48 Completed TROPONIN Q3H Lab 03/13/19 19:45 Ordered TROPONIN Q3H Lab 03/13/19 22:45 Ordered TROPONIN Q3H Lab 03/14/19 01:45 Ordered TROPONIN Q3H Lab 03/14/19 04:45 Ordered UA W/RFX UR CULTURE Stat Lab 03/13/19 18:00 Completed Medication Summary Generic Name Dose Route Start Last Admin Trade Name Freq PRN Reason Stop Dose Admin Sodium Chloride 1,000 mls @ 100 mls/hr 03/13/19 16:45 03/13/19 16:54 Sodium Chloride 0.9% 1000 Ml IV 04/12/19 16:44 100 mls/hr .Q10H CALLIE Administration Discontinued Medications Generic Name Dose Route Start Last Admin Trade Name Freq PRN Reason Stop Dose Admin Ceftriaxone Sodium/Dextrose 1 g in 50 mls @ 100 mls/hr 03/13/19 18:31 18:42 Rocephin 1 Gm-D5w 50 Ml Bag IV 03/13/19 19:00 100 mls/hr STAT STA 100 mls/hr Administration Ceftriaxone Sodium/Dextrose Confirm 03/13/19 18:35 Rocephin 1 Gm-D5w 50 Ml Bag Administered 03/13/19 18:36 Dose 1 g in 50 mls @ ud IV .STK-MED ONE Morphine Sulfate 4 mg 03/13/19 16:45 03/13/19 16:55 Morphine Sulfate 4 Mg Inj IV 03/13/19 16:46 4 mg STAT ONE Administration Morphine Sulfate Confirm 03/13/19 16:53 Morphine Sulfate 4 Mg Inj Administered 03/13/19 16:54 Dose 4 mg .ROUTE .STK-MED ONE Lab/Rad Data: Laboratory Result Diagrams 03/13/19 16:48 03/13/19 16:48 Laboratory Results 03/13/19 03/13/19 03/13/19 Range/Units 18:00 16:48 16:48 WBC (4.0-10.5) K/mm3 RBC (4.1-5.4) M/mm3 Hgb (12.0-16.0) gm/dl Hct (35-47) % MCV (78-100) fl MCH (26-32) pg MCHC (32-36) g/dl RDW (11.5-14.0) % Plt Count (150-450) K/mm3 MPV (6-9.5) fl Gran % (36.0-66.0) % Eos # (Auto) (0-0.5) Absolute Lymphs (auto) (1.0-4.6) Absolute Monos (auto) (0.0-1.3) Lymphocytes % (24.0-44.0) % Monocytes % (0.0-12.0) % Eosinophils % (0.00-5.0) % Basophils % (0.0-0.4) % Absolute Granulocytes (1.4-6.9) Basophils # (0-0.4) Sodium 137 (137-145) mmol/L Potassium 4.5 (3.5-5.1) mmol/L Chloride 102 (98-107) mmol/L Carbon Dioxide 21 L (22-30) mmol/L Anion Gap 17.3 H (5-15) MEQ/L BUN 19 H (7-17) mg/dL Creatinine 1.02 (0.52-1.04) mg/dL Estimated GFR 55.4 ML/MIN Glucose 315 H (74-106) mg/dL Calcium 9.7 (8.4-10.2) mg/dL Total Bilirubin 0.80 (0.2-1.3) mg/dL AST 19 (14-36) U/L ALT 17 (0-35) U/L Alkaline Phosphatase 88 (38-126) U/L Troponin I (0.000-0.034) ng/mL Serum Total Protein 6.9 (6.3-8.2) g/dL Albumin 3.9 (3.5-5.0) g/dL Amylase 67 (30-110) U/L Lipase 1189 H (23-300) U/L Urine Color YELLOW (YELLOW) Urine Appearance CLOUDY (CLEAR) Urine pH 5.0 (5-6) Ur Specific [place] 1.021 (1.005-1.025) Urine Protein NEGATIVE (Negative) Urine Ketones TRACE (NEGATIVE) Urine Blood SMALL (0-5) Filippo/ul Urine Nitrite POSITIVE (NEGATIVE) Urine Bilirubin NEGATIVE (NEGATIVE) Urine Urobilinogen NEGATIVE (0-1) mg/dL Ur Leukocyte Esterase LARGE (NEGATIVE) Urine WBC (Auto) >100 (0-5) /HPF Urine RBC (Auto) 6-10 (0-2) /HPF U Epithel Cells (Auto) MODERATE (FEW) /HPF Urine Bacteria (Auto) MANY (NEGATIVE) /HPF Unidentified Crystals 2-5 (NEGATIVE) /HPF Urine Mucus (Auto) MODERATE (NEGATIVE) /HPF Urine Culture Reflexed YES (NO) Urine Glucose >=500 (NEGATIVE) mg/dL 03/13/19 03/13/19 Range/Units 16:48 16:48 WBC 7.4 (4.0-10.5) K/mm3 RBC 4.38 (4.1-5.4) M/mm3 Hgb 13.1 (12.0-16.0) gm/dl Hct 38.9 (35-47) % MCV 88.8 (78-100) fl MCH 29.9 (26-32) pg MCHC 33.7 (32-36) g/dl RDW 14.4 H (11.5-14.0) % Plt Count 218 (150-450) K/mm3 MPV 10.5 H (6-9.5) fl Gran % 77.3 H (36.0-66.0) % Eos # (Auto) 0.19 (0-0.5) Absolute Lymphs (auto) 0.94 L (1.0-4.6) Absolute Monos (auto) 0.52 (0.0-1.3) Lymphocytes % 12.7 L (24.0-44.0) % Monocytes % 7.0 (0.0-12.0) % Eosinophils % 2.6 (0.00-5.0) % Basophils % 0.4 (0.0-0.4) % Absolute Granulocytes 5.70 (1.4-6.9) Basophils # 0.03 (0-0.4) Sodium (137-145) mmol/L Potassium (3.5-5.1) mmol/L Chloride (98-107) mmol/L Carbon Dioxide (22-30) mmol/L Anion Gap (5-15) MEQ/L BUN (7-17) mg/dL Creatinine (0.52-1.04) mg/dL Estimated GFR ML/MIN Glucose (74-106) mg/dL Calcium (8.4-10.2) mg/dL Total Bilirubin (0.2-1.3) mg/dL AST (14-36) U/L ALT (0-35) U/L Alkaline Phosphatase (38-126) U/L Troponin I < 0.012 (0.000-0.034) ng/mL Serum Total Protein (6.3-8.2) g/dL Albumin (3.5-5.0) g/dL Amylase (30-110) U/L Lipase (23-300) U/L Urine Color (YELLOW) Urine Appearance (CLEAR) Urine pH (5-6) Ur Specific [place] (1.005-1.025) Urine Protein (Negative) Urine Ketones (NEGATIVE) Urine Blood (0-5) Filippo/ul Urine Nitrite (NEGATIVE) Urine Bilirubin (NEGATIVE) Urine Urobilinogen (0-1) mg/dL Ur Leukocyte Esterase (NEGATIVE) Urine WBC (Auto) (0-5) /HPF Urine RBC (Auto) (0-2) /HPF U Epithel Cells (Auto) (FEW) /HPF Urine Bacteria (Auto) (NEGATIVE) /HPF Unidentified Crystals (NEGATIVE) /HPF Urine Mucus (Auto) (NEGATIVE) /HPF Urine Culture Reflexed (NO) Urine Glucose (NEGATIVE) mg/dL - Progress Progress: improved Progress Note: 03/13/19 19:05 79-year-old white female with who is brought by medics secondary to vomiting this morning patient had received Zofran on arrival she did have a headache. Patient was given IV normal saline at 100 she was also given morphine 4 mg IV she states she is feeling much better patient on for had a lipase of 1189 greater than 100 white cells per high-power field patient chemistry sodium 137 potassium 4.5 chloride 102 bicarbonate 21 BUN 19 creatinine 1.02 glucose 3:15 Patient would white count 7.4 hemoglobin 13.1 hematocrit 30.5 platelets [address] of the abdomen remarkable for mild left hydronephrosis with perinephric stranding but no calculus. Possible recent passage calculus versus infection. Tiny air bolus and urinary bladder are either recent catheterization versus infection. Stable hepatosplenomegaly, left adrenal adenoma and sigmoid diverticulosis patient was EKG sinus bradycardia 56 beats per minute normal axis no acute ST or T wave changes are noted Blood cultures obtained on this patient patient was placed on normal saline 100 mL per hour she was given morphine 4 mg IV. She was also given Rocephin 1 g IV after blood cultures were obtained She states she is feeling markedly better at this time I've discussed the patient's case with Dr. Piedra will place patient on observation. Diagnosis 1 vomiting 2. Urinary tract infection 3. Hyperglycemia. 4. Elevated lipase Plan patient will be placed on sliding scale insulin coverage Will continue IV normal saline and IV Rocephin. Will place patient on telemetry - Departure Departure Disposition: Observation Clinical Impression: Elevated lipase, Hyperglycemia Vomiting Qualifiers: Vomiting type: unspecified Vomiting Intractability: non-intractable Nausea presence: with nausea Qualified Code(s): R11.2 - Nausea with vomiting, unspecified UTI (urinary tract infection) Qualifiers: Urinary tract infection type: site unspecified Hematuria presence: without hematuria Qualified Code(s): N39.0 - Urinary tract infection, site not specified Condition: Fair Critical Care Time: No Referrals: FAY PIEDRA MD [Primary Care Provider] -
[2019-03-13] MEDS ORDERED: MORPHINE SULFATE 4 MG INJ ONE (16:53)
[2019-03-13] MEDS: Sodium Chloride 0.9% 1000 ML 1,000 ML IV SCH (16:54)
[2019-03-13 16:55] LABS: AMYLASE 67 U/L (30-110)
[2019-03-13 16:57] LABS: ALBUMIN 3.9 g/dL (3.5-5.0); ANION GAP 17.3 MEQ/L (5-15); BILIRUBIN,TOTAL 0.8 mg/dL (0.2-1.3); Calcium 9.7 mg/dL (8.4-10.2); Creatinine 1 1.02 mg/dL (0.52-1.04); Potassium 4.5 mmol/L (3.5-5.1); Total Protein 6.9 g/dL (6.3-8.2)
--- NOTE | 2019-03-13 17:25 | XRAY ---
Indication: Headache and vomiting. Multiple contiguous axial images obtained through the head without contrast. Comparison: March 02, 2013. Again age-appropriate global atrophy. There is minimal periventricular degenerative micro-ischemia bilaterally. No acute intracranial hemorrhage, abnormal extra-axial fluid collection, or mass effect. Fourth ventricle is midline without hydrocephalus. Bony calvarium intact again with incidental hyperostosis frontalis interna. Visualized paranasal sinuses and mastoid air cells are clear. Impression: Nonacute senile brain. CTDI 69.38
[2019-03-13 18:27] LABS: Appearance CLOUDY (CLEAR); Bacteria MANY /HPF (NEGATIVE); Bilirubin NEGATIVE (NEGATIVE); Blood SMALL Ery/ul (0-5); Epithelial Cells MODERATE /HPF (FEW); Glucose >=500 mg/dL (NEGATIVE); Ketones TRACE (NEGATIVE); Leukocyte Esterase LARGE (NEGATIVE); Mucus MODERATE /HPF (NEGATIVE); Nitrite POSITIVE (NEGATIVE); Protein,Urine Dip NEGATIVE (Negative); Specific Gravity 1.021 (1.005-1.025); Urobilinogen NEGATIVE mg/dL (0-1); WBC >100 /HPF (0-5)
[2019-03-13] MEDS ORDERED: ROCEPHIN 1 Gm-D5w 50 ml Bag** 1 G/50 ML IVPB IV STA (18:31)
[2019-03-13] MEDS ORDERED: ROCEPHIN 1 Gm-D5w 50 ml Bag** 1 G/50 ML IVPB IV ONE (18:35)
[2019-03-13] MEDS ORDERED: MORPHINE SULFATE 4 MG INJ IV PRN (20:40)
[2019-03-13] MEDS ORDERED: Sodium Chloride 0.9% 1000 ML 1,000 ML IV SCH (20:40)
[2019-03-13] MEDS ORDERED: Zofran 4 MG/2 ML VIAL IV PRN (20:40)
[2019-03-13] MEDS ORDERED: Glucophage XR 500 MG PO ONE (22:36)
[2019-03-13] MEDS ORDERED: ZOLOFT 50 MG TABLET ONE (22:37)
[2019-03-13] MEDS: Glucophage XR 500 MG PO SCH (22:39)
[2019-03-13] MEDS: Klonopin 0.5 MG PO SCH (22:39)
[2019-03-13] MEDS: ZOLOFT 50 MG TABLET PO SCH (22:39)
[2019-03-13] MEDS: Zestril 10 MG PO SCH (22:40)
[2019-03-13] MEDS: NovoLOG Insulin SQ PRN (22:42)
[2019-03-14] MEDS: Sodium Chloride 0.9% 1000 ML 1,000 ML IV SCH ×2 (03:24→13:53)
[2019-03-14 05:49] LABS: BASOPHIL % 0.4 % (0.0-0.4); Basophil (Absolute #) 0.03 (0-0.4); Eosinophil (Absolute #) 0.22 (0-0.5); Granulocyte Absolute (ANC) 5.13 (1.4-6.9); Granulocytes % 70.6 % (36.0-66.0); Hematocrit 36.4 % (35-47); Lymphocyte (Absolute #) 1.18 (1.0-4.6); Lymphocytes % 16.2 % (24.0-44.0); Mean Cell Volume 90.3 fl (78-100); Mean Platelet Volume 10.4 fl (6-9.5); Monocyte (Absolute #) 0.71 (0.0-1.3); Monocytes % 9.8 % (0.0-12.0); Platelet Count 226 K/mm3 (150-450); Red Blood Count 4.03 M/mm3 (4.1-5.4); Red Cell Distribution Width 14.5 % (11.5-14.0); White Blood Count 7.3 K/mm3 (4.0-10.5)
[2019-03-14 06:16] LABS: Mean Corpuscular Hemoglobin 29.7 pg (26-32)
[2019-03-14] MEDS ORDERED: RANITIDINE HCL 75 MG PO PRN (06:18)
[2019-03-14] MEDS ORDERED: Pepcid 20 MG PO PRN (06:27)
[2019-03-14 06:29] LABS: ALBUMIN 3.6 g/dL (3.5-5.0); BILIRUBIN,TOTAL 0.5 mg/dL (0.2-1.3); Calcium 9.2 mg/dL (8.4-10.2); Creatinine 1 0.99 mg/dL (0.52-1.04); Potassium 3.9 mmol/L (3.5-5.1); Total Protein 6.5 g/dL (6.3-8.2)
[2019-03-14] MEDS: Amaryl 2 MG PO SCH (08:39)
--- NOTE | 2019-03-14 08:42 | XRAY ---
Indication: Headache, vomiting, and increased lipase. Multiple contiguous axial images obtained through the abdomen and pelvis without contrast as ordered. Comparison: CT renal stone study August 20, 2014. Lung bases again demonstrates mild bibasilar atelectasis/scarring and left lower lobe calcified granuloma. No infiltrate or effusion. Heart is not enlarged. Incidental subcarinal and left infrahilar calcified nodes. Noncontrasted stomach and bowel loops appear nonobstructed. Patient reports appendectomy, cholecystectomy, and hysterectomy. Again mild sigmoid diverticulosis without diverticulitis. Left kidney again demonstrates mild hydronephrosis with minimal perinephric stranding but no calculus. Findings possibly from recent passage of calculus versus infection/inflammation. No perinephric fluid. Urinary bladder again demonstrates tiny intraluminal air bubbles either iatrogenic from recent catheterization versus gas-forming bacterial infection. Elsewhere there is again hepatosplenomegaly with the liver measuring 24.7 cm in CC dimension and spleen measuring 15.6 cm in axial dimension. Stable tiny calcified splenic granulomas and bilateral adrenal adenomas. Remaining pancreas and ureters appear unremarkable for noncontrast exam. No free fluid/air. There remains moderate aortoiliac calcifications without AAA. Osseous structures demonstrates mild degenerative changes throughout the thoracolumbar spine. No ventral or inguinal hernias. Impression: 1. Again mild hydronephrotic left kidney with perinephric stranding but no calculus. Rule out recent passage of calculus versus underlying infection/inflammation. There is also urinary bladder intraluminal air bubbles either iatrogenic versus gas-forming bacterial infection. 2. Again incidental findings including sigmoid diverticulosis, bilateral adrenal adenomas, hepatosplenomegaly, and evidence for old granulomatous disease. CT DI 33.34
[2019-03-14] MEDS ORDERED: NON-FORMULARY ITEM (Aspirin [Aspirin] 81 MG) PO SCH (10:00)
[2019-03-14] MEDS: SYNTHROID 50 MCG PO SCH (10:40)
[2019-03-14] MEDS: Klonopin 0.5 MG PO SCH ×2 (10:40→21:51)
[2019-03-14] MEDS: Toprol Xl 50 MG PO SCH (10:40)
[2019-03-14] MEDS: ECOTRIN 81 MG PO SCH (10:41)
[2019-03-14] MEDS: Zestril 10 MG PO SCH (10:41)
--- NOTE | 2019-03-14 11:48 | PCM.HP ---
History of Present Illness - Chief Complaint Chief Complaint: c/o vomiting for 2 days History of Present Illness: is a 79-year-old white female arrives with complaint of vomiting feeling nausea and feeling weak symptoms since this afternoon patient states that she got up she was upper-outer an hour and half and she began to have nausea and vomiting she states she had a headache. She apparently tried to drink some coffee and he cut his she is vomited them up she was given Zofran by the medics she has no fevers no chest pain she has not had any problems moving. - Review of Systems Constitutional: No Fever, No Chills Eyes: No Symptoms Ears, Nose, & Throat: No Symptoms Respiratory: No Cough, No Short Of Breath Cardiac: No Chest Pain, No Edema, No Syncope Abdominal/Gastrointestinal: No Abdominal Pain, No Nausea, No Vomiting, No Diarrhea Genitourinary Symptoms: No Dysuria Musculoskeletal: No Back Pain, No Neck Pain Skin: No Rash Neurological: No Dizziness, No Focal Weakness, No Sensory Changes Psychological: No Symptoms Endocrine: No Symptoms Hematologic/Lymphatic: No Symptoms Immunological/Allergic: No Symptoms Medications & Allergies Home Medications: Home Medication List Aspirin 81 mg PO DAILY 08/19/14 [History Confirmed 03/13/19] Clonazepam 0.5 mg [Klonopin 0.5 MG] 1 mg PO BID 08/19/14 [History Confirmed 03/13/19] Glimepiride 2 mg [Amaryl 2 MG] 2 mg PO DAILY 08/19/14 [History Confirmed 03/13/19] Levothyroxine Sodium 50 Mcg [Synthroid 50 Mcg] 50 mcg PO DAILY 08/19/14 [ History Confirmed 03/13/19] Metoprolol Succinate 50 mg [Toprol Xl 50 MG] 50 mg PO DAILY 08/19/14 [ History Confirmed 03/13/19] Sertraline HCl 50 mg [Zoloft 50 mg Tablet] 50 mg PO HS 08/19/14 [History Confirmed 03/13/19] Ergocalciferol (Vitamin D2) [Vitamin D2] 50,000 unit PO WEEKLY 12/20/16 [ History Confirmed 03/13/19] Lisinopril 10 mg [Zestril 10 MG] 10 mg PO DAILY 12/20/16 [History Confirmed 03/13/19] Metformin HCl Xr 500 mg [Glucophage XR 500 MG] 500 mg PO HS 03/13/19 [ History Confirmed 03/13/19] Ranitidine HCl [Zantac 75] 75 mg PO HS PRN PRN 03/13/19 [History Confirmed 03/13] Allergies/Adverse Reactions: Allergies Allergy/AdvReac Type Severity Reaction Status Date / Time Sulfa (Sulfonamide Allergy Mild Hives Verified 12/24/16 08:47 Antibiotics) - Past Medical History Past Medical History: Yes Neurological History: Migraines ENT History: Cataracts Cardiac History: Hypertension Respiratory History: No Pertinent History Endocrine Medical History: Diabetes Type II, Hypothyroidism, Other Musculoskelatal History: Osteoarthritis GI Medical History: GERD History: Other Pyscho-Social History: Depression Reproductive Disorders: No Pertinent History Comment: history of UTIs. SOB at times. CONNIE knee replacement, fractured collar bone, 4 cancerous polyps found on last colonoscopy. - Female History Are you now?: No - Past Surgical History Past Surgical History: Yes Neuro Surgical History: No Pertinent History Cardiac History: No Pertinent History Respiratory Surgery: No Pertinent History GI Surgical History: Appendectomy, Cholecystectomy Genitourinary Surgical Hx: No Pertinent History Musculskeletal Surgical Hx: Joint Replacement, Orthopedic Surgery Female Surgical History: Section, Hysterectomy Other Surgical History: bilateral knee replacements, melanoma removed from leg. skin grafts --2008. Neck surgery for pinched nerve. - Social History Smoking Status: Never smoker Exposure to second hand smoke: Yes Alcohol: None Drug Use: none - Physical Exam Vital Signs: Vital Signs - 24 hr Temp Pulse Resp BP Pulse Ox 03/14/19 11:37 98.2 F 64 20 131/68 97 03/14/19 07:14 98.2 F 64 20 131/68 97 03/14/19 04:00 98 F 69 14 156/67 95 03/14/19 00:35 98.2 F 69 16 135/63 96 03/13/19 21:04 97.0 F 62 20 180/72 98 03/13/19 20:40 98 03/13/19 20:35 97 F 62 20 180/72 98 03/13/19 19:09 99 03/13/19 18:55 64 18 155/62 96 03/13/19 18:17 65 18 169/61 98 03/13/19 15:59 97.7 F 58 L 18 169/61 99 General Appearance: no apparent distress, alert Neurologic Exam: alert, oriented x 3, cooperative, normal mood/affect, nml cerebellar function, nml station & gait, sensation nml, No motor deficits Eye Exam: PERRL/EOMI, eyes nml inspection Ears, Nose, Throat Exam: normal ENT inspection, TMs normal, pharynx normal, moist mucous membranes Neck Exam: normal inspection, non-tender, supple, full range of motion Respiratory Exam: normal breath sounds, lungs clear, No respiratory distress Cardiovascular Exam: regular rate/rhythm, normal heart sounds, normal peripheral pulses Gastrointestinal/Abdomen Exam: soft, normal bowel sounds, No tenderness, No mass Back Exam: normal inspection, normal range of motion, No CVA tenderness, No vertebral tenderness Extremity Exam: normal inspection, normal range of motion, pelvis stable Skin Exam: normal color, warm, dry, No rash Lymphatic Exam: No adenopathy Results - Labs Lab/Micro Results: Accuchecks Date 03/14/19 Date 03/14/19 Time 11:30 Time 08:45 Accucheck Value: 169 Accucheck Value: 315 Lab Results-Last 24 Hours 03/13/19 03/13/19 03/13/19 Range/Units 16:48 16:48 16:48 WBC 7.4 (4.0-10.5) K/mm3 RBC 4.38 (4.1-5.4) M/mm3 Hgb 13.1 (12.0-16.0) gm/dl Hct 38.9 (35-47) % MCV 88.8 (78-100) fl MCH 29.9 (26-32) pg MCHC 33.7 (32-36) g/dl RDW 14.4 H (11.5-14.0) % Plt Count 218 (150-450) K/mm3 MPV 10.5 H (6-9.5) fl Gran % 77.3 H (36.0-66.0) % Eos # (Auto) 0.19 (0-0.5) Absolute Lymphs (auto) 0.94 L (1.0-4.6) Absolute Monos (auto) 0.52 (0.0-1.3) Lymphocytes % 12.7 L (24.0-44.0) % Monocytes % 7.0 (0.0-12.0) % Eosinophils % 2.6 (0.00-5.0) % Basophils % 0.4 (0.0-0.4) % Absolute Granulocytes 5.70 (1.4-6.9) Basophils # 0.03 (0-0.4) Sodium (137-145) mmol/L Potassium (3.5-5.1) mmol/L Chloride (98-107) mmol/L Carbon Dioxide (22-30) mmol/L Anion Gap (5-15) MEQ/L BUN (7-17) mg/dL Creatinine (0.52-1.04) mg/dL Estimated GFR ML/MIN Glucose (74-106) mg/dL Hemoglobin A1c (4.5-6.0) % Calcium (8.4-10.2) mg/dL Total Bilirubin (0.2-1.3) mg/dL AST (14-36) U/L ALT (0-35) U/L Alkaline Phosphatase (38-126) U/L Troponin I < 0.012 (0.000-0.034) ng/mL Serum Total Protein (6.3-8.2) g/dL Albumin (3.5-5.0) g/dL Amylase 67 (30-110) U/L Lipase 1189 H (23-300) U/L Urine Color (YELLOW) Urine Appearance (CLEAR) Urine pH (5-6) Ur Specific [place] (1.005-1.025) Urine Protein (Negative) Urine Ketones (NEGATIVE) Urine Blood (0-5) Filippo/ul Urine Nitrite (NEGATIVE) Urine Bilirubin (NEGATIVE) Urine Urobilinogen (0-1) mg/dL Ur Leukocyte Esterase (NEGATIVE) Urine WBC (Auto) (0-5) /HPF Urine RBC (Auto) (0-2) /HPF U Epithel Cells (Auto) (FEW) /HPF Urine Bacteria (Auto) (NEGATIVE) /HPF Unidentified Crystals (NEGATIVE) /HPF Urine Mucus (Auto) (NEGATIVE) /HPF Urine Culture Reflexed (NO) Urine Glucose (NEGATIVE) mg/dL 03/13/19 03/13/19 03/13/19 Range/Units 16:48 18:00 19:50 WBC (4.0-10.5) K/mm3 RBC (4.1-5.4) M/mm3 Hgb (12.0-16.0) gm/dl Hct (35-47) % MCV (78-100) fl MCH (26-32) pg MCHC (32-36) g/dl RDW (11.5-14.0) % Plt Count (150-450) K/mm3 MPV (6-9.5) fl Gran % (36.0-66.0) % Eos # (Auto) (0-0.5) Absolute Lymphs (auto) (1.0-4.6) Absolute Monos (auto) (0.0-1.3) Lymphocytes % (24.0-44.0) % Monocytes % (0.0-12.0) % Eosinophils % (0.00-5.0) % Basophils % (0.0-0.4) % Absolute Granulocytes (1.4-6.9) Basophils # (0-0.4) Sodium 137 (137-145) mmol/L Potassium 4.5 (3.5-5.1) mmol/L Chloride 102 (98-107) mmol/L Carbon Dioxide 21 L (22-30) mmol/L Anion Gap 17.3 H (5-15) MEQ/L BUN 19 H (7-17) mg/dL Creatinine 1.02 (0.52-1.04) mg/dL Estimated GFR 55.4 ML/MIN Glucose 315 H (74-106) mg/dL Hemoglobin A1c (4.5-6.0) % Calcium 9.7 (8.4-10.2) mg/dL Total Bilirubin 0.80 (0.2-1.3) mg/dL AST 19 (14-36) U/L ALT 17 (0-35) U/L Alkaline Phosphatase 88 (38-126) U/L Troponin I < 0.012 (0.000-0.034) ng/mL Serum Total Protein 6.9 (6.3-8.2) g/dL Albumin 3.9 (3.5-5.0) g/dL Amylase (30-110) U/L Lipase (23-300) U/L Urine Color YELLOW (YELLOW) Urine Appearance CLOUDY (CLEAR) Urine pH 5.0 (5-6) Ur Specific [place] 1.021 (1.005-1.025) Urine Protein NEGATIVE (Negative) Urine Ketones TRACE (NEGATIVE) Urine Blood SMALL (0-5) Filippo/ul Urine Nitrite POSITIVE (NEGATIVE) Urine Bilirubin NEGATIVE (NEGATIVE) Urine Urobilinogen NEGATIVE (0-1) mg/dL Ur Leukocyte Esterase LARGE (NEGATIVE) Urine WBC (Auto) >100 (0-5) /HPF Urine RBC (Auto) 6-10 (0-2) /HPF U Epithel Cells (Auto) MODERATE (FEW) /HPF Urine Bacteria (Auto) MANY (NEGATIVE) /HPF Unidentified Crystals 2-5 (NEGATIVE) /HPF Urine Mucus (Auto) MODERATE (NEGATIVE) /HPF Urine Culture Reflexed YES (NO) Urine Glucose >=500 (NEGATIVE) mg/dL 03/13/19 03/14/19 03/14/19 Range/Units 22:50 01:50 05:20 WBC (4.0-10.5) K/mm3 RBC (4.1-5.4) M/mm3 Hgb (12.0-16.0) gm/dl Hct (35-47) % MCV (78-100) fl MCH (26-32) pg MCHC (32-36) g/dl RDW (11.5-14.0) % Plt Count (150-450) K/mm3 MPV (6-9.5) fl Gran % (36.0-66.0) % Eos # (Auto) (0-0.5) Absolute Lymphs (auto) (1.0-4.6) Absolute Monos (auto) (0.0-1.3) Lymphocytes % (24.0-44.0) % Monocytes % (0.0-12.0) % Eosinophils % (0.00-5.0) % Basophils % (0.0-0.4) % Absolute Granulocytes (1.4-6.9) Basophils # (0-0.4) Sodium (137-145) mmol/L Potassium (3.5-5.1) mmol/L Chloride (98-107) mmol/L Carbon Dioxide (22-30) mmol/L Anion Gap (5-15) MEQ/L BUN (7-17) mg/dL Creatinine (0.52-1.04) mg/dL Estimated GFR ML/MIN Glucose (74-106) mg/dL Hemoglobin A1c (4.5-6.0) % Calcium (8.4-10.2) mg/dL Total Bilirubin (0.2-1.3) mg/dL AST (14-36) U/L ALT (0-35) U/L Alkaline Phosphatase (38-126) U/L Troponin I < 0.012 < 0.012 < 0.012 (0.000-0.034) ng/mL Serum Total Protein (6.3-8.2) g/dL Albumin (3.5-5.0) g/dL Amylase (30-110) U/L Lipase (23-300) U/L Urine Color (YELLOW) Urine Appearance (CLEAR) Urine pH (5-6) Ur Specific [place] (1.005-1.025) Urine Protein (Negative) Urine Ketones (NEGATIVE) Urine Blood (0-5) Filippo/ul Urine Nitrite (NEGATIVE) Urine Bilirubin (NEGATIVE) Urine Urobilinogen (0-1) mg/dL Ur Leukocyte Esterase (NEGATIVE) Urine WBC (Auto) (0-5) /HPF Urine RBC (Auto) (0-2) /HPF U Epithel Cells (Auto) (FEW) /HPF Urine Bacteria (Auto) (NEGATIVE) /HPF Unidentified Crystals (NEGATIVE) /HPF Urine Mucus (Auto) (NEGATIVE) /HPF Urine Culture Reflexed (NO) Urine Glucose (NEGATIVE) mg/dL 03/14/19 03/14/19 03/14/19 Range/Units 05:20 05:20 05:30 WBC 7.3 (4.0-10.5) K/mm3 RBC 4.03 L (4.1-5.4) M/mm3 Hgb 12.0 (12.0-16.0) gm/dl Hct 36.4 (35-47) % MCV 90.3 (78-100) fl MCH 29.7 (26-32) pg MCHC 33.0 (32-36) g/dl RDW 14.5 H (11.5-14.0) % Plt Count 226 (150-450) K/mm3 MPV 10.4 H (6-9.5) fl Gran % 70.6 H (36.0-66.0) % Eos # (Auto) 0.22 (0-0.5) Absolute Lymphs (auto) 1.18 (1.0-4.6) Absolute Monos (auto) 0.71 (0.0-1.3) Lymphocytes % 16.2 L (24.0-44.0) % Monocytes % 9.8 (0.0-12.0) % Eosinophils % 3.0 (0.00-5.0) % Basophils % 0.4 (0.0-0.4) % Absolute Granulocytes 5.13 (1.4-6.9) Basophils # 0.03 (0-0.4) Sodium 137 (137-145) mmol/L Potassium 3.9 (3.5-5.1) mmol/L Chloride 102 (98-107) mmol/L Carbon Dioxide 27 (22-30) mmol/L Anion Gap 12.0 (5-15) MEQ/L BUN 16 (7-17) mg/dL Creatinine 0.99 (0.52-1.04) mg/dL Estimated GFR 57.4 ML/MIN Glucose 170 H (74-106) mg/dL Hemoglobin A1c 9.43 H (4.5-6.0) % Calcium 9.2 (8.4-10.2) mg/dL Total Bilirubin 0.50 (0.2-1.3) mg/dL AST 16 (14-36) U/L ALT 16 (0-35) U/L Alkaline Phosphatase 69 (38-126) U/L Troponin I (0.000-0.034) ng/mL Serum Total Protein 6.5 (6.3-8.2) g/dL Albumin 3.6 (3.5-5.0) g/dL Amylase (30-110) U/L Lipase (23-300) U/L Urine Color (YELLOW) Urine Appearance (CLEAR) Urine pH (5-6) Ur Specific [place] (1.005-1.025) Urine Protein (Negative) Urine Ketones (NEGATIVE) Urine Blood (0-5) Filippo/ul Urine Nitrite (NEGATIVE) Urine Bilirubin (NEGATIVE) Urine Urobilinogen (0-1) mg/dL Ur Leukocyte Esterase (NEGATIVE) Urine WBC (Auto) (0-5) /HPF Urine RBC (Auto) (0-2) /HPF U Epithel Cells (Auto) (FEW) /HPF Urine Bacteria (Auto) (NEGATIVE) /HPF Unidentified Crystals (NEGATIVE) /HPF Urine Mucus (Auto) (NEGATIVE) /HPF Urine Culture Reflexed (NO) Urine Glucose (NEGATIVE) mg/dL Microbiology 03/13/19 18:00 Urine Culture - Preliminary Clean Catch Midstream GRAM NEGATIVE ID AND SENSITIVITY PENDING Accuchecks Date 03/14/19 Date 03/14/19 Time 11:30 Time 08:45 Accucheck Value: 169 Accucheck Value: 315 - Radiology Impressions Radiology Exams & Impressions: Radiology Procedures Category Date Time Status ABDOMEN AND PELVIS W/0 CONTRAS [CT] Stat Exams 03/13/19 17:57 Completed HEAD WITHOUT CONTRAST [CT] Stat Exams 03/13/19 16:46 Completed Assessment/Plan (1) UTI (urinary tract infection) Current Visit: Yes Status: Acute Qualifiers: Urinary tract infection type: site unspecified Hematuria presence: without hematuria Qualified Code(s): N39.0 - Urinary tract infection, site not specified Assessment & Plan: Last Vital Signs Temp 98.2 F 03/14/19 11:37 Pulse 64 03/14/19 11:37 Resp 20 03/14/19 11:37 BP 131/68 03/14/19 11:37 Pulse Ox 97 03/14/19 11:37 Allergies Sulfa (Sulfonamide Antibiotics) Allergy (Mild, Verified 12/24/16 08:47) Hives Active Medications Aspirin (Ecotrin 81 Mg) 81 mg PO DAILY CALLIE Stop: 04/13/19 09:59 Last Admin: 03/14/19 10:41 Dose: 81 mg Clonazepam (Klonopin 0.5 Mg) 1 mg PO BID CALLIE Stop: 04/13/19 09:59 Last Admin: 03/14/19 10:40 Dose: 1 mg Ergocalciferol (Vitamin D2) 50,000 unit PO Fr CALLIE Stop: 04/16/19 09:59 Famotidine (Pepcid 20 Mg) 20 mg PO HS PRN PRN PRN Reason: HEARTBURN Stop: 04/13/19 06:26 Glimepiride (Amaryl 2 Mg) 2 mg PO BREAKFAST CALLIE Stop: 04/13/19 07:59 Last Admin: 03/14/19 08:39 Dose: 2 mg Sodium Chloride (Sodium Chloride 0.9% 1000 Ml) 1,000 mls @ 100 mls/hr IV .Q10H CALLIE Stop: 04/12/19 16:44 Last Admin: 03/14/19 03:24 Dose: 100 mls/hr Ceftriaxone Sodium/Dextrose (Rocephin 1 Gm-D5w 50 Ml Bag) 1 g in 50 mls @ 100 mls/hr IV Q24H [facility] Stop: 04/13/19 17:59 Insulin Aspart (Novolog Insulin) 0 unit SQ UD PRN PRN Reason: HYPERGLYCEMIA Stop: 04/12/19 20:39 Last Admin: 03/13/19 22:42 Dose: 6 unit Levothyroxine Sodium (Synthroid 50 Mcg) 50 mcg PO DAILY [facility] Stop: 04/13/19 09:59 Last Admin: 03/14/19 10:40 Dose: 50 mcg Lisinopril (Zestril 10 Mg) 10 mg PO DAILY [facility] Stop: 04/13/19 09:59 Last Admin: 03/14/19 10:41 Dose: 10 mg Metformin HCl (Glucophage Xr 500 Mg) 500 mg PO HS [facility] Stop: 04/13/19 21:59 Last Admin: 03/13/19 22:39 Dose: 500 mg Metoprolol Succinate (Toprol Xl 50 Mg) 50 mg PO DAILY [facility] Stop: 04/13/19 09:59 Last Admin: 03/14/19 10:40 Dose: 50 mg Morphine Sulfate (Morphine Sulfate 4 Mg Inj) 4 mg IV Q4H PRN PRN PRN Reason: PAIN Stop: 03/18/19 20:39 Ondansetron HCl (Zofran 4 Mg/2 Ml Vial) 4 mg IV Q6H PRN PRN PRN Reason: NAUSEA/VOMITING Stop: 04/12/19 20:39 Sertraline HCl (Zoloft 50 Mg Tablet) 50 mg PO HS [facility] Stop: 04/13/19 21:59 Last Admin: 03/13/19 22:39 Dose: 50 mg Intake & Output 03/13/19 03/14/19 11:59 11:59 Intake Total 1488 Output Total 1250 Balance 238 Weight 111.9 kg Orders 03/14/19 06:27 Famotidine 20 mg [Pepcid 20 MG] 20 mg PO HS PRN PRN 03/14/19 08:00 Glimepiride 2 mg [Amaryl 2 MG] 2 mg PO BREAKFAST 03/14/19 10:00 Aspirin EC 81 mg [Ecotrin 81 mg] 81 mg PO DAILY Clonazepam 0.5 mg [Klonopin 0.5 MG] 1 mg PO BID Levothyroxine Sodium 50 Mcg [Synthroid 50 Mcg] 50 mcg PO DAILY Lisinopril 10 mg [Zestril 10 MG] 10 mg PO DAILY Metoprolol Succinate 50 mg [Toprol Xl 50 MG] 50 mg PO DAILY 03/14/19 22:00 Metformin HCl Xr 500 mg [Glucophage XR 500 MG] 500 mg PO HS Sertraline HCl 50 mg [Zoloft 50 mg Tablet] 50 mg PO HS 03/17/19 10:00 Ergocalciferol (Vitamin D2) [Vitamin D2] 50,000 unit PO Fr Lab Tests 03/13/19 03/13/19 03/13/19 16:48 16:48 16:48 WBC 7.4 RBC 4.38 Hgb 13.1 Hct 38.9 MCV 88.8 MCH 29.9 MCHC 33.7 RDW 14.4 H Plt Count 218 MPV 10.5 H Gran % 77.3 H Eos # (Auto) 0.19 Absolute Lymphs (auto) 0.94 L Absolute Monos (auto) 0.52 Lymphocytes % 12.7 L Monocytes % 7.0 Eosinophils % 2.6 Basophils % 0.4 Absolute Granulocytes 5.70 Basophils # 0.03 Sodium Potassium Chloride Carbon Dioxide Anion Gap BUN Creatinine Estimated GFR Glucose Hemoglobin A1c Calcium Total Bilirubin AST ALT Alkaline Phosphatase Troponin I < 0.012 Serum Total Protein Albumin Amylase 67 Lipase 1189 H Urine Color Urine Appearance Urine pH Ur Specific [place] Urine Protein Urine Ketones Urine Blood Urine Nitrite Urine Bilirubin Urine Urobilinogen Ur Leukocyte Esterase Urine WBC (Auto) Urine RBC (Auto) U Epithel Cells (Auto) Urine Bacteria (Auto) Unidentified Crystals Urine Mucus (Auto) Urine Culture Reflexed Urine Glucose 03/13/19 03/13/19 03/13/19 16:48 18:00 19:50 WBC RBC Hgb Hct MCV MCH MCHC RDW Plt Count MPV Gran % Eos # (Auto) Absolute Lymphs (auto) Absolute Monos (auto) Lymphocytes % Monocytes % Eosinophils % Basophils % Absolute Granulocytes Basophils # Sodium 137 Potassium 4.5 Chloride 102 Carbon Dioxide 21 L Anion Gap 17.3 H BUN 19 H Creatinine 1.02 Estimated GFR 55.4 Glucose 315 H Hemoglobin A1c Calcium 9.7 Total Bilirubin 0.80 AST 19 ALT 17 Alkaline Phosphatase 88 Troponin I < 0.012 Serum Total Protein 6.9 Albumin 3.9 Amylase Lipase Urine Color YELLOW Urine Appearance CLOUDY Urine pH 5.0 Ur Specific [place] 1.021 Urine Protein NEGATIVE Urine Ketones TRACE Urine Blood SMALL Urine Nitrite POSITIVE Urine Bilirubin NEGATIVE Urine Urobilinogen NEGATIVE Ur Leukocyte Esterase LARGE Urine WBC (Auto) >100 Urine RBC (Auto) 6-10 U Epithel Cells (Auto) MODERATE Urine Bacteria (Auto) MANY Unidentified Crystals 2-5 Urine Mucus (Auto) MODERATE Urine Culture Reflexed YES Urine Glucose >=500 03/13/19 03/14/19 03/14/19 22:50 01:50 05:20 WBC RBC Hgb Hct MCV MCH MCHC RDW Plt Count MPV Gran % Eos # (Auto) Absolute Lymphs (auto) Absolute Monos (auto) Lymphocytes % Monocytes % Eosinophils % Basophils % Absolute Granulocytes Basophils # Sodium Potassium Chloride Carbon Dioxide Anion Gap BUN Creatinine Estimated GFR Glucose Hemoglobin A1c Calcium Total Bilirubin AST ALT Alkaline Phosphatase Troponin I < 0.012 < 0.012 < 0.012 Serum Total Protein Albumin Amylase Lipase Urine Color Urine Appearance Urine pH Ur Specific [place] Urine Protein Urine Ketones Urine Blood Urine Nitrite Urine Bilirubin Urine Urobilinogen Ur Leukocyte Esterase Urine WBC (Auto) Urine RBC (Auto) U Epithel Cells (Auto) Urine Bacteria (Auto) Unidentified Crystals Urine Mucus (Auto) Urine Culture Reflexed Urine Glucose 03/14/19 03/14/19 03/14/19 05:20 05:20 05:30 WBC 7.3 RBC 4.03 L Hgb 12.0 Hct 36.4 MCV 90.3 MCH 29.7 MCHC 33.0 RDW 14.5 H Plt Count 226 MPV 10.4 H Gran % 70.6 H Eos # (Auto) 0.22 Absolute Lymphs (auto) 1.18 Absolute Monos (auto) 0.71 Lymphocytes % 16.2 L Monocytes % 9.8 Eosinophils % 3.0 Basophils % 0.4 Absolute Granulocytes 5.13 Basophils # 0.03 Sodium 137 Potassium 3.9 Chloride 102 Carbon Dioxide 27 Anion Gap 12.0 BUN 16 Creatinine 0.99 Estimated GFR 57.4 Glucose 170 H Hemoglobin A1c 9.43 H Calcium 9.2 Total Bilirubin 0.50 AST 16 ALT 16 Alkaline Phosphatase 69 Troponin I Serum Total Protein 6.5 Albumin 3.6 Amylase Lipase Urine Color Urine Appearance Urine pH Ur Specific [place] Urine Protein Urine Ketones Urine Blood Urine Nitrite Urine Bilirubin Urine Urobilinogen Ur Leukocyte Esterase Urine WBC (Auto) Urine RBC (Auto) U Epithel Cells (Auto) Urine Bacteria (Auto) Unidentified Crystals Urine Mucus (Auto) Urine Culture Reflexed Urine Glucose Microbiology 03/13/19 18:00 Clean Catch Midstream Urine Culture - Preliminary GRAM NEGATIVE ID AND SENSITIVITY PENDING Code(s): N39.0 - URINARY TRACT INFECTION, SITE NOT SPECIFIED (2) HTN (hypertension) Current Visit: Yes Status: Acute Qualifiers: Hypertension type: essential hypertension Qualified Code(s): I10 - Essential (primary) hypertension Code(s): I10 - ESSENTIAL (PRIMARY) HYPERTENSION (3) Hyperglycemia Current Visit: Yes Status: Acute Code(s): R73.9 - HYPERGLYCEMIA, UNSPECIFIED (4) Vomiting Current Visit: Yes Status: Acute Qualifiers: Vomiting type: unspecified Vomiting Intractability: non-intractable Nausea presence: with nausea Qualified Code(s): R11.2 - Nausea with vomiting, unspecified Code(s): R11.10 - VOMITING, UNSPECIFIED (5) Diabetes mellitus Current Visit: No Status: Chronic Code(s): E11.9 - TYPE 2 DIABETES MELLITUS WITHOUT COMPLICATIONS
[2019-03-14] MEDS: NovoLOG Insulin SQ PRN ×3 (11:57→21:52)
[2019-03-14] MEDS: ROCEPHIN 1 Gm-D5w 50 ml Bag** 1 G/50 ML IVPB IV SCH (18:27)
[2019-03-14] MEDS: TYLENOL 325 MG PO PRN (19:43)
[2019-03-14] MEDS: ZOLOFT 50 MG TABLET PO SCH (21:51)
[2019-03-14] MEDS: Glucophage XR 500 MG PO SCH (21:51)
[2019-03-15] MEDS: Sodium Chloride 0.9% 1000 ML 1,000 ML IV SCH ×3 (01:04→21:38)
[2019-03-15] MEDS: TYLENOL 325 MG PO PRN (01:35)
[2019-03-15] MEDS: Amaryl 2 MG PO SCH (07:51)
[2019-03-15] MEDS: SYNTHROID 50 MCG PO SCH (09:23)
[2019-03-15] MEDS: Zestril 10 MG PO SCH (09:24)
[2019-03-15] MEDS: Toprol Xl 50 MG PO SCH (09:24)
[2019-03-15] MEDS: Klonopin 0.5 MG PO SCH ×2 (09:24→21:32)
[2019-03-15] MEDS: ECOTRIN 81 MG PO SCH (09:24)
[2019-03-15] MEDS: NovoLOG Insulin SQ PRN ×3 (12:00→21:32)
[2019-03-15] MEDS: ROCEPHIN 1 Gm-D5w 50 ml Bag** 1 G/50 ML IVPB IV SCH (17:45)
[2019-03-15] MEDS: ZOLOFT 50 MG TABLET PO SCH (21:32)
[2019-03-15] MEDS: Glucophage XR 500 MG PO SCH (21:32)
[2019-03-16] MEDS: Amaryl 2 MG PO SCH (08:03)
[2019-03-16] MEDS: NovoLOG Insulin SQ PRN ×3 (08:20→21:37)
[2019-03-16] MEDS: Zestril 10 MG PO SCH (08:55)
[2019-03-16] MEDS: Klonopin 0.5 MG PO SCH ×2 (08:55→21:37)
[2019-03-16] MEDS: ECOTRIN 81 MG PO SCH (08:56)
[2019-03-16] MEDS: Toprol Xl 50 MG PO SCH (08:56)
[2019-03-16] MEDS: SYNTHROID 50 MCG PO SCH (08:56)
[2019-03-16] MEDS ORDERED: Sodium Chloride 0.9% 10 ML FLUSH Syringe IV PRN (15:30)
[2019-03-16] MEDS: ROCEPHIN 1 Gm-D5w 50 ml Bag** 1 G/50 ML IVPB IV SCH (17:30)
[2019-03-16] MEDS: ZOLOFT 50 MG TABLET PO SCH (21:36)
[2019-03-16] MEDS: Glucophage XR 500 MG PO SCH (21:36)
[2019-03-16] MEDS: Sodium Chloride 0.9% 10 ML FLUSH Syringe IV SCH (21:37)
[2019-03-17] MEDS: Sodium Chloride 0.9% 10 ML FLUSH Syringe IV SCH (06:41)
[2019-03-17 07:34] VITALS: BP 144/66
[2019-03-17] MEDS: Amaryl 2 MG PO SCH (08:25)
[2019-03-17] MEDS ORDERED: VITAMIN D2 PO SCH (10:00)
[2019-03-17] MEDS: ECOTRIN 81 MG PO SCH (10:38)
[2019-03-17] MEDS: Toprol Xl 50 MG PO SCH (10:38)
[2019-03-17] MEDS: Zestril 10 MG PO SCH (10:39)
[2019-03-17] MEDS: Klonopin 0.5 MG PO SCH (10:39)
[2019-03-17] MEDS: SYNTHROID 50 MCG PO SCH (10:39)
[2019-03-17] MEDS: NovoLOG Insulin SQ PRN (11:51)
[2019-03-17 12:15] VITALS: PULSE 68; O2SAT 97
== END 2019-03-17 12:20 | disposition home or self-care (01) | DRG 690 ==
LOC: ED 15:59 → MED SURG 20:32 → OBSVTOIN 03-14 21:00
PROVIDERS: ADMIT General Practice; ATTEND General Practice
DX: N39.0 Urinary tract infection, site not specified (principal); E11.65 Type 2 diabetes mellitus with hyperglycemia; R11.2 Nausea with vomiting, unspecified; R53.1 Weakness; I10 Essential (primary) hypertension; R51 Headache; R79.89 Other specified abnormal findings of blood chemistry; E03.9 Hypothyroidism, unspecified; Z79.899 Other long term (current) drug therapy
CPT/HCPCS: 36415; 70450; 74176; 80053; 81001; 82150; 82962; 83036; 83690; 84484; 85025; 87040; 87077; 87086; 87186; 93005; 93268; 94762; 96360; 96365; 96374; 99285; J0696; J2270; A9270-GY; G0378

== ENCOUNTER 2021-01-07 05:38 | Observation (INO) | payer MEDICARE, OTHER ==
--- NOTE | 2021-01-07 06:32 | ERPHSYRPT ---
- History of Present Illness Historian: patient, EMS Exam Limitations: no limitations Patient Subjective Stated Complaint: pt states she has had abd pain for approx 1 month and vomiting. states pain was worse tonight, states pain radiates up to chest at times. vomited and had small amount of bright red blood in her emesis. pt states she has pain in her upper abd and mid back. pain is worse after eating. Triage Nursing Assessment: pt alert and oriented, answers questions approp. pt arrive per ambulance. transfers to stretcher per self. moves well on bed. skin pink warm an ddry. respirations nonlabored with lungs cta. heart rate 64 on monitor, sinus rhythm. no emesis at this time. bowel sounds present x4. abd soft and nontender to light palpation. Timing/Duration: worse, other (Present intermittently over a month) Quality: aching, cramping Abdominal Pain Onset Location: epigastric (Epigastric pain is the worst part of it), generalized abdomen Pain Radiation: chest (Up to), back (And across mid back) Severity of Pain-Max: moderate Severity of Pain-Current: moderate Modifying Factors: Improves With: vomiting Associated Symptoms: nausea, vomiting Previous symptoms: same symptoms as today, no recent treatment Hx Tetanus, Diphtheria Vaccination/Date Given: Yes Hx Influenza Vaccination/Date Given: Yes Hx Pneumococcal Vaccination/Date Given: Yes <SEEMA BRODERICK - Last Filed: 01/07/21 06:42> <ALINE LÓPEZ - Last Filed: 01/07/21 08:50> - History of Present Illness Time Seen by Provider: 01/07/21 06:15 Physician History: This is an 80-year-old white female history of diabetes, hypertension hypothyroidism who has had a cholecystectomy, appendectomy and hysterectomy in the past. She presents with a one 1 month history of intermittent epigastric and generalized abdominal pain. In the last day or 2 she has had episodes of vomiting with specks of blood in it. She has also had worsening of that pain. Patient states that the pain is epigastric and may be low chest as well. She had vomiting episodes and is nauseated. She has no shortness of breath that is new. She has had no diarrhea (SEEMA BRODERICK) Allergies/Adverse Reactions: Sulfa (Sulfonamide Antibiotics) Allergy (Mild, Verified 01/07/21 05:58) Hives Home Medications: Aspirin 81 mg PO DAILY 08/19/14 [History] Clonazepam 0.5 mg [Klonopin 0.5 MG] 1 mg PO BID 08/19/14 [History] Glimepiride 2 mg [Amaryl 2 MG] 4 mg PO DAILY 08/19/14 [History] Levothyroxine Sodium 50 Mcg [Synthroid 50 Mcg] 50 mcg PO DAILY 08/19/14 [History] Metoprolol Succinate 50 mg [Toprol Xl 50 MG] 50 mg PO DAILY 08/19/14 [H istory] Sertraline HCl 50 mg [Zoloft 50 mg Tablet] 50 mg PO HS 08/19/14 [History] Ergocalciferol (Vitamin D2) [Vitamin D2] 50,000 unit PO WEEKLY 12/20/16 [History] Lisinopril 10 mg [Zestril 10 MG] 10 mg PO DAILY 12/20/16 [History] Travel Risk - International Travel Have you traveled outside of the country in past 3 weeks: No - Coronavirus Screening Are you exhibiting any of the following symptoms?: No Close contact with a COVID-19 positive Pt in past 14-21 Days: No - Vaccine Status Have you recieved a Covid-19 vaccination: Yes 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 - Vaccination Dates Date of 2cond Vaccination (if applicable): november 2020 <SEEMA BRODERICK - Last Filed: 01/07/21 06:42> - Review of Systems Constitutional: No Symptoms Eyes: No Symptoms Ears, Nose, & Throat: No Symptoms Respiratory: No Symptoms Cardiac: No Symptoms Abdominal/Gastrointestinal: Abdominal Pain, Nausea, Vomiting Genitourinary Symptoms: No Symptoms Musculoskeletal: No Symptoms Skin: No Symptoms Neurological: No Symptoms Psychological: No Symptoms Endocrine: No Symptoms Hematologic/Lymphatic: No Symptoms Immunological/Allergic: No Symptoms All Other Systems: Reviewed and Negative <SEEMA BRODERICK - Last Filed: 01/07/21 06:42> - Past Medical History Pertinent Past Medical History: Yes Neurological History: Migraines ENT History: Cataracts Cardiac History: Hypertension Respiratory History: No Pertinent History Endocrine Medical History: Diabetes Type II, Hypothyroidism, Other Musculoskeletal History: Osteoarthritis GI Medical History: GERD History: Other Psycho-Social History: Depression Female Reproductive Disorders: No Pertinent History Other Medical History: history of UTIs. SOB at times. CONNIE knee replacement, fractured collar bone, 4 cancerous polyps removed- clear colonoscopy since - Past Surgical History Past Surgical History: Yes Neuro Surgical History: No Pertinent History Cardiac: No Pertinent History Respiratory: No Pertinent History Gastrointestinal: Appendectomy, Cholecystectomy Genitourinary: No Pertinent History Musculoskeletal: Joint Replacement, Orthopedic Surgery Female Surgical History: Section, Hysterectomy Other Surgical History: bilateral knee replacements, melanoma removed from leg. skin grafts --2008. Neck surgery for pinched nerve. - Social History Smoking Status: Never smoker Exposure to second hand smoke: Yes Drug Use: none Patient Lives Alone: Yes <SEEMA BRODERICK - Last Filed: 01/07/21 06:42> - Physical Exam General Appearance: no apparent distress, alert, anxiety, obese Eye Exam: PERRL/EOMI, eyes nml inspection Ears, Nose, Throat Exam: normal ENT inspection, moist mucous membranes Neck Exam: normal inspection, non-tender, supple, full range of motion Respiratory Exam: normal breath sounds, lungs clear, airway intact, No chest tenderness, No respiratory distress Cardiovascular Exam: regular rate/rhythm, normal heart sounds, normal peripheral pulses Gastrointestinal/Abdomen Exam: soft, normal bowel sounds, tenderness, guarding, No rebound Pelvic Exam: not done Rectal Exam: not done Back Exam: normal inspection, normal range of motion, No CVA tenderness, No vertebral tenderness Extremity Exam: normal inspection, normal range of motion, pelvis stable Neurologic Exam: alert, oriented x 3, cooperative, 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 as tested, normal mood/affect, nml cerebellar function, nml station & gait, sensation nml Skin Exam: normal color, warm, dry Lymphatic Exam: No adenopathy SpO2 Interpretation: normal SpO2: 98 O2 Delivery: Room Air <SEEMA BRODERICK - Last Filed: 01/07/21 06:42> - Nursing Vital Signs Nursing Vital Signs: Initial Vital Signs Temperature 98.5 F 01/07/21 05:40 Pulse Rate 62 01/07/21 05:40 Respiratory Rate 16 01/07/21 05:40 Blood Pressure 167/70 01/07/21 05:40 O2 Sat by Pulse Oximetry 99 01/07/21 05:40 Pain Scale Pain Intensity 6 - Course Nursing assessment & vital signs reviewed: Yes EKG Interpreted by Me: RATE (63), Sinus Rhythm, Left [place] Deviation, NORMAL INTERVALS, NORMAL QRS, NORMAL ST-T, Other (No acute ischemic changes. When compared to EKG dated 03/14/2019, there is new borderline left axis deviation. Otherwise no changes) <SEEMA BRODERICK - Last Filed: 01/07/21 06:42> - CT Exams Abdomen/Pelvis CT Interpretation: Discussed w/radiologist (Small HH/L renal calculi/h epatosplenomegaly/sigmoid diverticulosis) <ALINE LÓPEZ - Last Filed: 01/07/21 08:50> Ordered Tests: Active Orders 24 hr Category Date Time Status Bedrest with BRP/BSC ROUTINE Activity 01/07/21 08:23 Active Code Status Order ROUTINE Care 01/07/21 08:21 Active IV Care Q6H Care 01/07/21 08:21 Active IV Insertion STAT Care 01/07/21 06:35 Active Intake and Output Q12H Care 01/07/21 08:[address] in Observation ROUTINE Care 01/07/21 08:22 Active Heart-Healthy Diet Diet 01/07/21 Lunch Active ABDOMEN AND PELVIS W/0 CONTRAS [CT] Stat Exams 01/07/21 07:04 Completed AMYLASE Stat Lab 01/07/21 07:15 Completed BLOOD CULTURE Stat Lab 01/07/21 08:40 Received CBC W DIFF AM.LAB Lab 01/08/21 04:00 Ordered CBC W DIFF Stat Lab 01/07/21 07:15 Completed CMP AM.LAB Lab 01/08/21 04:00 Ordered CMP Stat Lab 01/07/21 07:15 Completed CULTURE,URINE Stat Lab 01/07/21 07:45 Received LIPASE Stat Lab 01/07/21 07:15 Completed Lactic Acid Stat Lab 01/07/21 06:35 Completed TROPONIN Q3H Lab 01/07/21 07:15 Completed TROPONIN Q3H Lab 01/07/21 09:45 Ordered TROPONIN Q3H Lab 01/07/21 12:45 Ordered TROPONIN Q3H Lab 01/07/21 15:45 Ordered TROPONIN Q3H Lab 01/07/21 18:45 Ordered UA W/RFX UR CULTURE Stat Lab 01/07/21 07:45 Completed Transfer Order Routine Transfer 01/07/21 Ordered Medication Summary Generic Name Dose Route Start Last Admin Trade Name Rey PRN Reason Stop Dose Admin Enoxaparin Sodium 40 mg 01/07/21 10:00 Enoxaparin Sodium SQ 02/06/21 09:59 DAILY CALLIE Hydromorphone HCl 0.5 mg 01/07/21 08:21 Hydromorphone 1 Mg/Ml Injection IV 01/12/21 08:20 Q1H PRN PRN PAIN Sodium Chloride 1,000 mls @ 80 mls/hr 01/07/21 08:30 Sodium Chloride 0.9% 1000 Ml IV 02/06/21 08:29 .[id number] CALLIE Ceftriaxone Sodium/Dextrose 1 g in 50 mls @ 100 mls/hr 01/07/21 10:00 Rocephin 1 Gm-D5w 50 Ml Bag IV 01/10/21 09:59 Q24H10 CALLIE Ceftriaxone Sodium/Dextrose 1 g in 50 mls @ 100 mls/hr 01/07/21 08:29 Rocephin 1 Gm-D5w 50 Ml Bag IV 01/07/21 08:58 STAT STA Insulin Human Lispro 0 unit 01/07/21 08:21 Humalog SQ 02/06/21 08:20 UD PRN HYPERGLYCEMIA Ondansetron HCl 4 mg 01/07/21 08:21 Zofran 4 Mg/2 Ml Vial IV 02/06/21 08:20 Q6H PRN PRN NAUSEA/VOMITING Pantoprazole Sodium 40 mg 01/07/21 10:00 Protonix 40 Mg Iv IV 02/06/21 09:59 Q24H10 CALLIE Discontinued Medications Generic Name Dose Route Start Last Admin Trade Name Rey PRN Reason Stop Dose Admin Hydromorphone HCl 0.5 mg 01/07/21 06:35 01/07/21 06:45 Hydromorphone 1 Mg/Ml Injection IV 01/07/21 06:36 0.5 mg STAT ONE Administration Hydromorphone HCl Confirm 01/07/21 06:41 Hydromorphone 1 Mg/Ml Injection Administered 01/07/21 06:42 Dose 1 mg .ROUTE .STK-MED ONE Sodium Chloride 1,000 mls @ 999 mls/hr 01/07/21 06:35 01/07/21 08:01 Sodium Chloride 0.9% 1000 Ml IV 01/07/21 07:35 Infused .Q1H1M STA Infusion Sodium Chloride Confirm 01/07/21 06:42 Sodium Chloride 0.9% 1000 Ml Administered 01/07/21 06:43 Dose 1,000 mls @ ud .ROUTE .STK-MED ONE Ondansetron HCl 4 mg 01/07/21 06:35 01/07/21 06:46 Zofran 4 Mg/2 Ml Vial IV 01/07/21 06:36 4 mg STAT ONE Administration Ondansetron HCl Confirm 01/07/21 06:40 Zofran 4 Mg/2 Ml Vial Administered 01/07/21 06:41 Dose 4 mg .ROUTE .STK-MED ONE Lab/Rad Data: Laboratory Result Diagrams 01/07/21 07:15 01/07/21 07:15 Laboratory Results 01/07/21 01/07/21 01/07/21 Range/Units 07:45 07:15 07:15 WBC (4.0-10.5) K/mm3 RBC (4.1-5.4) M/mm3 Hgb (12.0-16.0) gm/dl Hct (35-47) % MCV (78-100) fl MCH (26-32) pg MCHC (32-36) g/dl RDW (11.5-14.0) % Plt Count (150-450) K/mm3 MPV (7.5-11.0) fl Gran % (36.0-66.0) % Eos # (Auto) (0-0.5) Absolute Lymphs (auto) (1.0-4.6) Absolute Monos (auto) (0.0-1.3) Lymphocytes % (24.0-44.0) % Monocytes % (0.0-12.0) % Eosinophils % (0.00-5.0) % Basophils % (0.0-0.4) % Absolute Granulocytes (1.4-6.9) Basophils # (0-0.4) Sodium 138 (137-145) mmol/L Potassium 4.5 (3.5-5.1) mmol/L Chloride 103 (98-107) mmol/L Carbon Dioxide 26 (22-30) mmol/L Anion Gap 13.6 (5-15) MEQ/L BUN 31 H (7-17) mg/dL Creatinine 1.36 H (0.52-1.04) mg/dL Estimated GFR 39.7 ML/MIN Glucose 175 H (74-106) mg/dL Lactic Acid (0.4-2.0) Calcium 9.9 (8.4-10.2) mg/dL Total Bilirubin 0.50 (0.2-1.3) mg/dL AST 32 (14-36) U/L ALT 19 (0-35) U/L Alkaline Phosphatase 84 (38-126) U/L Troponin I < 0.012 (0.000-0.034) ng/mL Serum Total Protein 7.3 (6.3-8.2) g/dL Albumin 4.4 (3.5-5.0) g/dL Amylase 62 (30-110) U/L Lipase 335 H (23-300) U/L Urine Color YELLOW (YELLOW) Urine Appearance CLOUDY (CLEAR) Urine pH 5.0 (5-6) Ur Specific [place] 1.009 (1.005-1.025) Urine Protein NEGATIVE (Negative) Urine Ketones NEGATIVE (NEGATIVE) Urine Blood SMALL (0-5) Filippo/ul Urine Nitrite POSITIVE (NEGATIVE) Urine Bilirubin NEGATIVE (NEGATIVE) Urine Urobilinogen NEGATIVE (0-1) mg/dL Ur Leukocyte Esterase LARGE (NEGATIVE) Urine WBC (Auto) >100 (0-5) /HPF Urine RBC (Auto) 3-5 (0-2) /HPF U Epithel Cells (Auto) NONE (FEW) /HPF Urine Bacteria (Auto) MODERATE (NEGATIVE) /HPF Urine Mucus (Auto) SLIGHT (NEGATIVE) /HPF Urine Culture Reflexed YES (NO) Urine Glucose NEGATIVE (NEGATIVE) mg/dL 01/07/21 01/07/21 Range/Units 07:15 06:35 WBC 7.8 (4.0-10.5) K/mm3 RBC 4.58 (4.1-5.4) M/mm3 Hgb 13.6 (12.0-16.0) gm/dl Hct 41.2 (35-47) % MCV 90.0 (78-100) fl MCH 29.7 (26-32) pg MCHC 33.0 (32-36) g/dl RDW 14.0 (11.5-14.0) % Plt Count 176 (150-450) K/mm3 MPV 10.1 (7.5-11.0) fl Gran % 71.2 H (36.0-66.0) % Eos # (Auto) 0.25 (0-0.5) Absolute Lymphs (auto) 1.36 (1.0-4.6) Absolute Monos (auto) 0.62 (0.0-1.3) Lymphocytes % 17.3 L (24.0-44.0) % Monocytes % 7.9 (0.0-12.0) % Eosinophils % 3.2 (0.00-5.0) % Basophils % 0.4 (0.0-0.4) % Absolute Granulocytes 5.58 (1.4-6.9) Basophils # 0.03 (0-0.4) Sodium (137-145) mmol/L Potassium (3.5-5.1) mmol/L Chloride (98-107) mmol/L Carbon Dioxide (22-30) mmol/L Anion Gap (5-15) MEQ/L BUN (7-17) mg/dL Creatinine (0.52-1.04) mg/dL Estimated GFR ML/MIN Glucose (74-106) mg/dL Lactic Acid 1.7 (0.4-2.0) Calcium (8.4-10.2) mg/dL Total Bilirubin (0.2-1.3) mg/dL AST (14-36) U/L ALT (0-35) U/L Alkaline Phosphatase (38-126) U/L Troponin I (0.000-0.034) ng/mL Serum Total Protein (6.3-8.2) g/dL Albumin (3.5-5.0) g/dL Amylase (30-110) U/L Lipase (23-300) U/L Urine Color (YELLOW) Urine Appearance (CLEAR) Urine pH (5-6) Ur Specific [place] (1.005-1.025) Urine Protein (Negative) Urine Ketones (NEGATIVE) Urine Blood (0-5) Filippo/ul Urine Nitrite (NEGATIVE) Urine Bilirubin (NEGATIVE) Urine Urobilinogen (0-1) mg/dL Ur Leukocyte Esterase (NEGATIVE) Urine WBC (Auto) (0-5) /HPF Urine RBC (Auto) (0-2) /HPF U Epithel Cells (Auto) (FEW) /HPF Urine Bacteria (Auto) (NEGATIVE) /HPF Urine Mucus (Auto) (NEGATIVE) /HPF Urine Culture Reflexed (NO) Urine Glucose (NEGATIVE) mg/dL - Progress Progress: improved, pain not gone completely Counseled pt/family regarding: lab results, diagnosis, need for follow-up, rad results <SEEMA BRODERICK - Last Filed: 01/07/21 06:42> - Progress Progress: improved Counseled pt/family regarding: lab results, diagnosis, rad results <ALINE LÓPEZ - Last Filed: 01/07/21 08:50> - Progress Progress Note: 01/07/21 06:43 Transfer of care to Dr. López at shift change. I reviewed the patient history, condition and pending lab and x-ray studies with him. He will follow up and make final disposition of this patient. (SEEMA BRODERICK) 01/07/21 07:54 Assumed care of 80 yo wf w diffuse abdominal pain x 6 months at shift change. She has had intermittant N/V/D over the last 6 months and possibly mild hemat emesis this AM. Fever/cough/dysuria/hematuria are all denied. EKG demonstrates NSR/IRBBB/notmal QT-QTc/normal QT-QTc/no acute ST changes. Lungs CTA/Heart RRRwoM/Abdomen morbidly obese/Good BS/Diffuse TTP/CT Ab-P small HH/stable hepatosplenomegaly/Sigmoid diverticulosis 01/07/21 08:[address] Piedra for uti/abdominal pain. 01/07/21 08:50 Blood cultures x2/1gm Iv Rocephin before admit (ALINE LÓPEZ) <SEEMA BRODERICK - Last Filed: 01/07/21 06:42> - Departure Departure Disposition: Observation Critical Care Time: No <ALINE LÓPEZ - Last Filed: 01/07/21 08:50> - Departure Clinical Impression: UTI (urinary tract infection), Abdominal pain Condition: Stable Referrals: FAY PIEDRA MD [Primary Care Provider] -
[2021-01-07] MEDS ORDERED: Sodium Chloride 0.9% 1000 ML 1,000 ML IV STA (06:35)
[2021-01-07] MEDS ORDERED: Zofran 4 MG/2 ML VIAL IV ONE (06:35)
[2021-01-07] MEDS ORDERED: Hydromorphone 1 mg/ml Injection IV ONE (06:35)
[2021-01-07] MEDS ORDERED: Zofran 4 MG/2 ML VIAL ONE (06:40)
[2021-01-07] MEDS ORDERED: Hydromorphone 1 mg/ml Injection ONE (06:41)
[2021-01-07] MEDS ORDERED: Sodium Chloride 0.9% 1000 ML 1,000 ML ONE (06:42)
[2021-01-07 07:21] LABS: Absolute Neutrophil Ct (ANC) 5.58 (1.4-6.9); BASOPHIL % 0.4 % (0.0-0.4); Basophil (Absolute #) 0.03 (0-0.4); Eosinophil % 3.2 % (0.00-5.0); Eosinophil (Absolute #) 0.25 (0-0.5); Hematocrit 41.2 % (35-47); Hemoglobin 13.6 gm/dl (12.0-16.0); Lymphocyte (Absolute #) 1.36 (1.0-4.6); Lymphocytes % 17.3 % (24.0-44.0); Mean Corpuscular Hemoglobin 29.7 pg (26-32); Mean Platelet Volume 10.1 fl (7.5-11.0); Monocyte (Absolute #) 0.62 (0.0-1.3); Monocytes % 7.9 % (0.0-12.0); Neutrophil % 71.2 % (36.0-66.0); Platelet Count 176 K/mm3 (150-450); Red Blood Count 4.58 M/mm3 (4.1-5.4); White Blood Count 7.8 K/mm3 (4.0-10.5)
[2021-01-07 07:52] LABS: ALBUMIN 4.4 g/dL (3.5-5.0); ANION GAP 13.6 MEQ/L (5-15); BILIRUBIN,TOTAL 0.5 mg/dL (0.2-1.3); Calcium 9.9 mg/dL (8.4-10.2); Creatinine 1 1.36 mg/dL (0.52-1.04); EST GLOMERULAR FILTRATION RATE 39.7 ML/MIN; Potassium 4.5 mmol/L (3.5-5.1); Total Protein 7.3 g/dL (6.3-8.2)
[2021-01-07 08:01] LABS: Appearance CLOUDY (CLEAR); Bacteria MODERATE /HPF (NEGATIVE); Bilirubin NEGATIVE (NEGATIVE); Blood SMALL Ery/ul (0-5); Glucose NEGATIVE (NEGATIVE); Ketones NEGATIVE (NEGATIVE); Leukocyte Esterase LARGE (NEGATIVE); Mucus SLIGHT /HPF (NEGATIVE); Nitrite POSITIVE (NEGATIVE); Protein,Urine Dip NEGATIVE (Negative); Specific Gravity 1.009 (1.005-1.025); Urobilinogen NEGATIVE mg/dL (0-1); WBC >100 /HPF (0-5)
[2021-01-07] MEDS ORDERED: Hydromorphone 1 mg/ml Injection IV PRN (08:21)
[2021-01-07] MEDS ORDERED: Zofran 4 MG/2 ML VIAL IV PRN (08:21)
[2021-01-07] MEDS ORDERED: ROCEPHIN 1 Gm-D5w 50 ml Bag** 1 G/50 ML IVPB IV STA (08:29)
--- NOTE | 2021-01-07 08:43 | XRAY ---
Indication: Abdomen pain, nausea, and vomiting one month. Multiple contiguous axial images obtained through the abdomen and pelvis without contrast. Comparison: March 13, 2019. Lung bases again demonstrate subsegmental atelectasis/scarring and left lower lobe calcified granuloma. No infiltrate or effusion. Heart is not enlarged. New small hiatal hernia. Noncontrasted stomach and bowel loops appear nonobstructed. Stable minimal descending and sigmoid diverticulosis without diverticulitis. Again reported appendectomy, cholecystectomy, and hysterectomy. No free fluid/air. Left kidney remains mildly atrophic with cortical thinning/scarring. Left kidney demonstrates 2 new nonobstructing punctate calculi. There remains hepatosplenomegaly, hepatic/splenic calcified granulomas, and small bilateral adrenal adenomas. Remaining pancreas, right kidney, ureters, and urinary bladder are unremarkable for noncontrast exam. Stable moderate scattered aortoiliac calcifications without AAA. Osseous structures again demonstrate mild degenerative changes throughout the thoracolumbar spine. Impression: 1. New small hiatal hernia and 2 nonobstructing left renal micro-calculi. 2. Stable left renal atrophy with cortical thinning/scarring, bilateral adrenal adenomas, hepatosplenomegaly, colonic diverticulosis, chronic bony findings, and old granulomatous disease.
[2021-01-07] MEDS ORDERED: ROCEPHIN 1 Gm-D5w 50 ml Bag** 1 G/50 ML IVPB IV ONE (09:48)
[2021-01-07 09:53] LABS: INFLUENZA A NEGATIVE (NEGATIVE); INFLUENZA B NEGATIVE (NEGATIVE); RESPIRATORY SYNCTIAL VIRUS NEGATIVE (Negative)
[2021-01-07] MEDS ORDERED: ENOXAPARIN SODIUM SQ SCH (10:00)
[2021-01-07] MEDS: PROTONIX 40 MG IV IV SCH (11:22)
[2021-01-07] MEDS: Sodium Chloride 0.9% 1000 ML 1,000 ML IV SCH ×2 (11:23→18:24)
--- NOTE | 2021-01-07 12:09 | PCM.HP ---
History of Present Illness - Chief Complaint Chief Complaint: Vomiting with blood for History of Present Illness: is a 80 year old female.history of diabetes, hypertension hypothyroidism who has had a cholecystectomy, appendectomy and hysterectomy in the past. She presents with a one 1 month history of intermittent epigastric and generalized abdominal pain. In the last day or 2 she has had episodes of vomiting with specks of blood in it. She has also had worsening of that pain. Patient states that the pain is epigastric and may be low chest as well. She had vomiting episodes and is nauseated. She has no shortness of breath that is new. She has had no diarrhea - Review of Systems Constitutional: No Fever, No Chills Eyes: No Symptoms Ears, Nose, & Throat: No Symptoms Respiratory: No Cough, No Short Of Breath Cardiac: No Chest Pain, No Edema, No Syncope Abdominal/Gastrointestinal: Abdominal Pain, Nausea, Vomiting, Hematemesis, No Diarrhea Genitourinary Symptoms: No Dysuria Musculoskeletal: No Back Pain, No Neck Pain Skin: No Rash Neurological: No Dizziness, No Focal Weakness, No Sensory Changes Psychological: No Symptoms Endocrine: No Symptoms Hematologic/Lymphatic: No Symptoms Immunological/Allergic: No Symptoms Medications & Allergies Home Medications: Home Medication List Aspirin 81 mg PO DAILY 08/19/14 [History Confirmed 01/07/21] Clonazepam 0.5 mg [Klonopin 0.5 MG] 1 mg PO BID 08/19/14 [History Confirmed 01/07/21] Glimepiride 2 mg [Amaryl 2 MG] 4 mg PO DAILY 08/19/14 [History Confirmed 01/07/21] Levothyroxine Sodium 50 Mcg [Synthroid 50 Mcg] 50 mcg PO DAILY 08/19/14 [History Confirmed 01/07/21] Metoprolol Succinate 50 mg [Toprol Xl 50 MG] 50 mg PO HS 08/19/14 [History Confirmed 01/07/21] Sertraline HCl 50 mg [Zoloft 50 mg Tablet] 50 mg PO HS 08/19/14 [History Confirmed 01/07/21] Ergocalciferol (Vitamin D2) [Vitamin D2] 50,000 unit PO WEEKLY 12/20/16 [History Confirmed 01/07/21] Lisinopril 10 mg [Zestril 10 MG] 10 mg PO DAILY 12/20/16 [History Confirmed 01/07/21] Allergies/Adverse Reactions: Allergies Allergy/AdvReac Type Severity Reaction Status Date / Time Sulfa (Sulfonamide Allergy Mild Hives Verified 01/07/21 10:46 Antibiotics) - Past Medical History Past Medical History: Yes Neurological History: No Pertinent History ENT History: No Pertinent History Cardiac History: Hypertension Respiratory History: No Pertinent History Endocrine Medical History: Diabetes Type II, Hypothyroidism Musculoskelatal History: Osteoarthritis GI Medical History: GERD History: No Pertinent History Pyscho-Social History: Depression Reproductive Disorders: No Pertinent History Comment: Melanoma - Female History Are you now?: No - Past Surgical History Past Surgical History: Yes Neuro Surgical History: Other Cardiac History: No Pertinent History Respiratory Surgery: No Pertinent History GI Surgical History: Appendectomy, Cholecystectomy Genitourinary Surgical Hx: No Pertinent History Musculskeletal Surgical Hx: No Pertinent History Female Surgical History: Hysterectomy, Section Other Surgical History: Pinched nerve, collar bone, right shoulder, left arm and wrist surgery - Social History Smoking Status: Never smoker Exposure to second hand smoke: No Alcohol: None Drug Use: none - Physical Exam Vital Signs: Vital Signs - 24 hr Temp Pulse Resp BP Pulse Ox 01/07/21 11:36 97.9 F 72 20 146/83 98 01/07/21 10:21 97.7 F 64 18 146/65 97 01/07/21 09:49 56 L 18 128/59 96 01/07/21 07:45 60 18 147/84 99 01/07/21 06:45 98 01/07/21 06:14 56 L 16 156/72 98 01/07/21 05:40 98.5 F 62 16 167/70 99 General Appearance: no apparent distress, alert Neurologic Exam: alert, oriented x 3, cooperative, normal mood/affect, nml cerebellar function, nml station & gait, sensation nml, No motor deficits Eye Exam: PERRL/EOMI, eyes nml inspection Ears, Nose, Throat Exam: normal ENT inspection, TMs normal, pharynx normal, moist mucous membranes Neck Exam: normal inspection, non-tender, supple, full range of motion Respiratory Exam: normal breath sounds, lungs clear, No respiratory distress Cardiovascular Exam: regular rate/rhythm, normal heart sounds, normal peripheral pulses Gastrointestinal/Abdomen Exam: soft, normal bowel sounds, No tenderness, No mass Back Exam: normal inspection, normal range of motion, No CVA tenderness, No vertebral tenderness Extremity Exam: normal inspection, normal range of motion, pelvis stable Skin Exam: normal color, warm, dry, No rash Lymphatic Exam: No adenopathy Results - Labs Lab/Micro Results: Lab Results-Last 24 Hours 01/07/21 01/07/21 01/07/21 Range/Units 06:35 07:15 07:15 WBC 7.8 (4.0-10.5) K/mm3 RBC 4.58 (4.1-5.4) M/mm3 Hgb 13.6 (12.0-16.0) gm/dl Hct 41.2 (35-47) % MCV 90.0 (78-100) fl MCH 29.7 (26-32) pg MCHC 33.0 (32-36) g/dl RDW 14.0 (11.5-14.0) % Plt Count 176 (150-450) K/mm3 MPV 10.1 (7.5-11.0) fl Gran % 71.2 H (36.0-66.0) % Eos # (Auto) 0.25 (0-0.5) Absolute Lymphs (auto) 1.36 (1.0-4.6) Absolute Monos (auto) 0.62 (0.0-1.3) Lymphocytes % 17.3 L (24.0-44.0) % Monocytes % 7.9 (0.0-12.0) % Eosinophils % 3.2 (0.00-5.0) % Basophils % 0.4 (0.0-0.4) % Absolute Granulocytes 5.58 (1.4-6.9) Basophils # 0.03 (0-0.4) Sodium 138 (137-145) mmol/L Potassium 4.5 (3.5-5.1) mmol/L Chloride 103 (98-107) mmol/L Carbon Dioxide 26 (22-30) mmol/L Anion Gap 13.6 (5-15) MEQ/L BUN 31 H (7-17) mg/dL Creatinine 1.36 H (0.52-1.04) mg/dL Estimated GFR 39.7 ML/MIN Glucose 175 H (74-106) mg/dL POC Glucometer (74 to 106) mg/dL Lactic Acid 1.7 (0.4-2.0) Calcium 9.9 (8.4-10.2) mg/dL Total Bilirubin 0.50 (0.2-1.3) mg/dL AST 32 (14-36) U/L ALT 19 (0-35) U/L Alkaline Phosphatase 84 (38-126) U/L Troponin I (0.000-0.034) ng/mL Serum Total Protein 7.3 (6.3-8.2) g/dL Albumin 4.4 (3.5-5.0) g/dL Amylase 62 (30-110) U/L Lipase 335 H (23-300) U/L Urine Color (YELLOW) Urine Appearance (CLEAR) Urine pH (5-6) Ur Specific [place] (1.005-1.025) Urine Protein (Negative) Urine Ketones (NEGATIVE) Urine Blood (0-5) Filippo/ul Urine Nitrite (NEGATIVE) Urine Bilirubin (NEGATIVE) Urine Urobilinogen (0-1) mg/dL Ur Leukocyte Esterase (NEGATIVE) Urine WBC (Auto) (0-5) /HPF Urine RBC (Auto) (0-2) /HPF U Epithel Cells (Auto) (FEW) /HPF Urine Bacteria (Auto) (NEGATIVE) /HPF Urine Mucus (Auto) (NEGATIVE) /HPF Urine Culture Reflexed (NO) Urine Glucose (NEGATIVE) mg/dL Influenza Type A Ag (NEGATIVE) Influenza Type B Ag (NEGATIVE) RSV (PCR) (Negative) SARS-CoV-2 (PCR) (NEGATIVE) 01/07/21 01/07/21 01/07/21 Range/Units 07:15 07:45 09:06 WBC (4.0-10.5) K/mm3 RBC (4.1-5.4) M/mm3 Hgb (12.0-16.0) gm/dl Hct (35-47) % MCV (78-100) fl MCH (26-32) pg MCHC (32-36) g/dl RDW (11.5-14.0) % Plt Count (150-450) K/mm3 MPV (7.5-11.0) fl Gran % (36.0-66.0) % Eos # (Auto) (0-0.5) Absolute Lymphs (auto) (1.0-4.6) Absolute Monos (auto) (0.0-1.3) Lymphocytes % (24.0-44.0) % Monocytes % (0.0-12.0) % Eosinophils % (0.00-5.0) % Basophils % (0.0-0.4) % Absolute Granulocytes (1.4-6.9) Basophils # (0-0.4) Sodium (137-145) mmol/L Potassium (3.5-5.1) mmol/L Chloride (98-107) mmol/L Carbon Dioxide (22-30) mmol/L Anion Gap (5-15) MEQ/L BUN (7-17) mg/dL Creatinine (0.52-1.04) mg/dL Estimated GFR ML/MIN Glucose (74-106) mg/dL POC Glucometer (74 to 106) mg/dL Lactic Acid (0.4-2.0) Calcium (8.4-10.2) mg/dL Total Bilirubin (0.2-1.3) mg/dL AST (14-36) U/L ALT (0-35) U/L Alkaline Phosphatase (38-126) U/L Troponin I < 0.012 (0.000-0.034) ng/mL Serum Total Protein (6.3-8.2) g/dL Albumin (3.5-5.0) g/dL Amylase (30-110) U/L Lipase (23-300) U/L Urine Color YELLOW (YELLOW) Urine Appearance CLOUDY (CLEAR) Urine pH 5.0 (5-6) Ur Specific [place] 1.009 (1.005-1.025) Urine Protein NEGATIVE (Negative) Urine Ketones NEGATIVE (NEGATIVE) Urine Blood SMALL (0-5) Filippo/ul Urine Nitrite POSITIVE (NEGATIVE) Urine Bilirubin NEGATIVE (NEGATIVE) Urine Urobilinogen NEGATIVE (0-1) mg/dL Ur Leukocyte Esterase LARGE (NEGATIVE) Urine WBC (Auto) >100 (0-5) /HPF Urine RBC (Auto) 3-5 (0-2) /HPF U Epithel Cells (Auto) NONE (FEW) /HPF Urine Bacteria (Auto) MODERATE (NEGATIVE) /HPF Urine Mucus (Auto) SLIGHT (NEGATIVE) /HPF Urine Culture Reflexed YES (NO) Urine Glucose NEGATIVE (NEGATIVE) mg/dL Influenza Type A Ag NEGATIVE (NEGATIVE) Influenza Type B Ag NEGATIVE (NEGATIVE) RSV (PCR) NEGATIVE (Negative) SARS-CoV-2 (PCR) NEGATIVE (NEGATIVE) 01/07/21 01/07/21 Range/Units 10:06 11:22 WBC (4.0-10.5) K/mm3 RBC (4.1-5.4) M/mm3 Hgb (12.0-16.0) gm/dl Hct (35-47) % MCV (78-100) fl MCH (26-32) pg MCHC (32-36) g/dl RDW (11.5-14.0) % Plt Count (150-450) K/mm3 MPV (7.5-11.0) fl Gran % (36.0-66.0) % Eos # (Auto) (0-0.5) Absolute Lymphs (auto) (1.0-4.6) Absolute Monos (auto) (0.0-1.3) Lymphocytes % (24.0-44.0) % Monocytes % (0.0-12.0) % Eosinophils % (0.00-5.0) % Basophils % (0.0-0.4) % Absolute Granulocytes (1.4-6.9) Basophils # (0-0.4) Sodium (137-145) mmol/L Potassium (3.5-5.1) mmol/L Chloride (98-107) mmol/L Carbon Dioxide (22-30) mmol/L Anion Gap (5-15) MEQ/L BUN (7-17) mg/dL Creatinine (0.52-1.04) mg/dL Estimated GFR ML/MIN Glucose (74-106) mg/dL POC Glucometer 159 H (74 to 106) mg/dL Lactic Acid (0.4-2.0) Calcium (8.4-10.2) mg/dL Total Bilirubin (0.2-1.3) mg/dL AST (14-36) U/L ALT (0-35) U/L Alkaline Phosphatase (38-126) U/L Troponin I < 0.012 (0.000-0.034) ng/mL Serum Total Protein (6.3-8.2) g/dL Albumin (3.5-5.0) g/dL Amylase (30-110) U/L Lipase (23-300) U/L Urine Color (YELLOW) Urine Appearance (CLEAR) Urine pH (5-6) Ur Specific [place] (1.005-1.025) Urine Protein (Negative) Urine Ketones (NEGATIVE) Urine Blood (0-5) Filippo/ul Urine Nitrite (NEGATIVE) Urine Bilirubin (NEGATIVE) Urine Urobilinogen (0-1) mg/dL Ur Leukocyte Esterase (NEGATIVE) Urine WBC (Auto) (0-5) /HPF Urine RBC (Auto) (0-2) /HPF U Epithel Cells (Auto) (FEW) /HPF Urine Bacteria (Auto) (NEGATIVE) /HPF Urine Mucus (Auto) (NEGATIVE) /HPF Urine Culture Reflexed (NO) Urine Glucose (NEGATIVE) mg/dL Influenza Type A Ag (NEGATIVE) Influenza Type B Ag (NEGATIVE) RSV (PCR) (Negative) SARS-CoV-2 (PCR) (NEGATIVE) - Radiology Impressions Radiology Exams & Impressions: Radiology Procedures Category Date Time Status ABDOMEN AND PELVIS W/0 CONTRAS [CT] Stat Exams 01/07/21 07:[address]/ABDOMEN AND PELVIS W/0 CONTRAS Indication: Abdomen pain, nausea, and vomiting one month. Multiple contiguous axial images obtained through the abdomen and pelvis without contrast. Comparison: March 13, 2019. Lung bases again demonstrate subsegmental atelectasis/scarring and left lower lobe calcified granuloma. No infiltrate or effusion. Heart is not enlarged. New small hiatal hernia. Noncontrasted stomach and bowel loops appear nonobstructed. Stable minimal descending and sigmoid diverticulosis without diverticulitis. Again reported appendectomy, cholecystectomy, and hysterectomy. No free fluid/air. Left kidney remains mildly atrophic with cortical thinning/scarring. Left kidney demonstrates 2 new nonobstructing punctate calculi. There remains hepatosplenomegaly, hepatic/splenic calcified granulomas, and small bilateral adrenal adenomas. Remaining pancreas, right kidney, ureters, and urinary bladder are unremarkable for noncontrast exam. Stable moderate scattered aortoiliac calcifications without AAA. Osseous structures again demonstrate mild degenerative changes throughout the thoracolumbar spine. Impression: 1. New small hiatal hernia and 2 nonobstructing left renal micro-calculi. 2. Stable left renal atrophy with cortical thinning/scarring, bilateral adrenal adenomas, hepatosplenomegaly, colonic diverticulosis, chronic bony findings, and old granulomatous disease. Assessment/Plan (1) Abdominal pain Current Visit: Yes Status: Acute Qualifiers: Abdominal location: generalized Qualified Code(s): R10.84 - Generalized abdominal pain Code(s): R10.9 - UNSPECIFIED ABDOMINAL PAIN (2) UTI (urinary tract infection) Current Visit: Yes Status: Acute Qualifiers: Urinary tract infection type: acute pyelonephritis Qualified Code(s): N10 - Acute pyelonephritis Code(s): N39.0 - URINARY TRACT INFECTION, SITE NOT SPECIFIED (3) Uncontrolled diabetes mellitus Current Visit: Yes Status: Chronic Qualifiers: Diabetes mellitus type: type 2 Glycemic state: with hyperglycemia Qualified Code(s): E11.65 - Type 2 diabetes mellitus with hyperglycemia Code(s): E11.65 - TYPE 2 DIABETES MELLITUS WITH HYPERGLYCEMIA (4) HTN (hypertension) Current Visit: Yes Status: Chronic Qualifiers: Hypertension type: essential hypertension Code(s): I10 - ESSENTIAL (PRIMARY) HYPERTENSION
[2021-01-07] MEDS: Klonopin 0.5 MG PO SCH ×2 (13:26→22:27)
[2021-01-07] MEDS: Zestril 10 MG PO SCH (13:26)
[2021-01-07] MEDS: SYNTHROID 50 MCG PO SCH (13:27)
[2021-01-07] MEDS ORDERED: Amaryl 2 MG PO SCH (14:00)
[2021-01-07] MEDS ORDERED: ECOTRIN 81 MG PO SCH (14:00)
[2021-01-07] MEDS: Toprol Xl 50 MG PO SCH (22:27)
[2021-01-07] MEDS: ZOLOFT 50 MG TABLET PO SCH (22:28)
[2021-01-08] MEDS ORDERED: Lactated Ringers 1,000 ML IV SCH (05:00)
[2021-01-08 06:09] LABS: Absolute Neutrophil Ct (ANC) 2.66 (1.4-6.9); BASOPHIL % 0.4 % (0.0-0.4); Basophil (Absolute #) 0.02 (0-0.4); Eosinophil % 4.3 % (0.00-5.0); Eosinophil (Absolute #) 0.19 (0-0.5); Hematocrit 37.6 % (35-47); Hemoglobin 12.3 gm/dl (12.0-16.0); Lymphocyte (Absolute #) 1.14 (1.0-4.6); Lymphocytes % 25.5 % (24.0-44.0); Mean Cell Volume 91.7 fl (78-100); Mean Corpuscular Hgb Concent. 32.7 g/dl (32-36); Mean Platelet Volume 10.6 fl (7.5-11.0); Monocyte (Absolute #) 0.46 (0.0-1.3); Monocytes % 10.3 % (0.0-12.0); Neutrophil % 59.5 % (36.0-66.0); Platelet Count 157 K/mm3 (150-450); Red Cell Distribution Width 14.1 % (11.5-14.0); White Blood Count 4.5 K/mm3 (4.0-10.5)
[2021-01-08 06:26] LABS: ALBUMIN 3.4 g/dL (3.5-5.0); ANION GAP 10.9 MEQ/L (5-15); BILIRUBIN,TOTAL 0.5 mg/dL (0.2-1.3); Creatinine 1 1.37 mg/dL (0.52-1.04); EST GLOMERULAR FILTRATION RATE 39.3 ML/MIN; Potassium 4.2 mmol/L (3.5-5.1)
[2021-01-08] MEDS ORDERED: DIPRIVAN 200 MG/20 ML IV ONE (06:43)
--- NOTE | 2021-01-08 09:27 | XRAY ---
Indication: Abdomen pain. Cholecystectomy. Two-dimensional right upper quadrant abdominal sonogram performed. Comparison: None Gallbladder surgically absent. Common bile duct measures 8 mm. No intrahepatic biliary distention. Remaining visualized liver, pancreas, and right kidney sonographically unremarkable. Right kidney measures 10.2 cm in length. No ascites. Impression: Cholecystectomy in a otherwise negative right upper quadrant sonogram.
--- NOTE | 2021-01-08 09:41 | OP ---
SURGERY DATE/TIME: 01/08/2021 0700 PREOPERATIVE DIAGNOSES: 1) Epigastric abdominal pain. 2) Nausea and vomiting. POSTOPERATIVE DIAGNOSES: 1) Hiatal hernia. 2) Mild gastritis. 3) Distal esophagitis. PROCEDURE: EGD. SURGEON: Kan Rhodes M.D. ANESTHESIA: MAC by Chavo Velasquez CRNA. ESTIMATED BLOOD LOSS: Minimal. SPECIMENS: There were two cold forceps biopsies taken from the gastric antrum and two cold forceps biopsies taken from the distal esophagus. DESCRIPTION OF PROCEDURE: After informed written consent was obtained, the patient was taken to the endoscopy suite. A bite block was inserted and she was placed in left lateral decubitus position. Anesthesia was titrated to the desired level of consciousness. The endoscope was inserted into the posterior oropharynx and under direct visualization the esophagus was traversed. The stomach mucosa had a normal gastric mucosa. It was rugated. There was some mild gastritis changes with no ulceration or bleeding in the antrum. The pylorus was traversed and the duodenum had a normal mucosal appearance. Two small cold forceps biopsies were taken from the gastric antrum and sent for Helicobacter pylori testing. Retroflexion revealed sliding hiatal hernia and was inflammatory distal esophagitis changes with inflammation with no obvious mass at the gastroesophageal junction. Two random biopsies were taken from this area. No other obvious abnormalities were encountered. The scope was removed. The patient was transferred to the recovery room in good condition.
[2021-01-08] MEDS: Sodium Chloride 0.9% 1000 ML 1,000 ML IV SCH ×2 (09:57→22:36)
[2021-01-08] MEDS: Zestril 10 MG PO SCH (09:57)
[2021-01-08] MEDS: SYNTHROID 50 MCG PO SCH (09:57)
[2021-01-08] MEDS: PROTONIX 40 MG IV IV SCH (09:57)
[2021-01-08] MEDS ORDERED: NON-FORMULARY ITEM (Aspirin [Aspirin] 81 MG) PO SCH (10:00)
[2021-01-08] MEDS: ROCEPHIN 1 Gm-D5w 50 ml Bag** 1 G/50 ML IVPB IV SCH (10:01)
--- NOTE | 2021-01-08 11:38 | PCM.NOTE ---
Date and Time: 01/08/21 1138 Subjective Assessment: doing ok - Review of Systems Constitutional: No Fever, No Chills Eyes: No Symptoms Ears, Nose, & Throat: No Symptoms Respiratory: No Cough, No Short Of Breath Cardiac: No Chest Pain, No Edema, No Syncope Abdominal/Gastrointestinal: No Abdominal Pain, No Nausea, No Vomiting, No Diarrhea Genitourinary Symptoms: No Dysuria Musculoskeletal: No Back Pain, No Neck Pain Skin: No Rash Neurological: No Dizziness, No Focal Weakness, No Sensory Changes Psychological: No Symptoms Endocrine: No Symptoms Hematologic/Lymphatic: No Symptoms Immunological/Allergic: No Symptoms Objective Exam General Appearance: no apparent distress, alert Neurologic Exam: alert, oriented x 3, cooperative, normal mood/affect, nml cerebellar function, sensation nml, No motor deficits Skin Exam: normal color, warm, dry Eye Exam: PERRL, EOMI, eyes nml inspection Ears, Nose, Throat Exam: normal ENT inspection, pharynx normal, moist mucous membranes Neck Exam: normal inspection, non-tender, supple, full range of motion Respiratory Exam: normal breath sounds, lungs clear, No respiratory distress Cardiovascular Exam: regular rate/rhythm, normal heart sounds Gastrointestinal/Abdomen Exam: soft, No tenderness, No mass Extremity Exam: normal inspection, normal range of motion Back Exam: normal inspection, normal range of motion, No CVA tenderness, No vertebral tenderness Pelvic Exam: deferred Rectal Exam: deferred OBJECTIVE DATA Vital Signs: Vital Signs - 24 hr Temp Pulse Resp BP Pulse Ox 01/08/21 03:56 98.0 F 64 16 137/63 95 01/08/21 03:55 98.0 F 64 16 137/63 95 01/08/21 00:00 97.7 F 71 16 136/60 96 01/07/21 20:00 65 18 146/66 98 01/07/21 15:54 98.2 F 69 20 128/73 98 Pain Assessment - Last Documented Pain Intensity 0 Pain Scale Used 0-10 Pain Scale Intake and Output: Intake & Output 01/05/21 01/06/21 01/07/21 01/08/21 11:59 11:59 11:59 11:59 Intake Total 2268 Output Total 1400 Balance 868 Weight 105.1 kg 105.1 kg Lab Results: Lab Results-Last 24 Hours 01/07/21 01/07/21 01/07/21 Range/Units 07:15 13:00 15:32 WBC (4.0-10.5) K/mm3 RBC (4.1-5.4) M/mm3 Hgb (12.0-16.0) gm/dl Hct (35-47) % MCV (78-100) fl MCH (26-32) pg MCHC (32-36) g/dl RDW (11.5-14.0) % Plt Count (150-450) K/mm3 MPV (7.5-11.0) fl Gran % (36.0-66.0) % Eos # (Auto) (0-0.5) Absolute Lymphs (auto) (1.0-4.6) Absolute Monos (auto) (0.0-1.3) Lymphocytes % (24.0-44.0) % Monocytes % (0.0-12.0) % Eosinophils % (0.00-5.0) % Basophils % (0.0-0.4) % Absolute Granulocytes (1.4-6.9) Basophils # (0-0.4) Sodium (137-145) mmol/L Potassium (3.5-5.1) mmol/L Chloride (98-107) mmol/L Carbon Dioxide (22-30) mmol/L Anion Gap (5-15) MEQ/L BUN (7-17) mg/dL Creatinine (0.52-1.04) mg/dL Estimated GFR ML/MIN Glucose (74-106) mg/dL POC Glucometer (74 to 106) mg/dL Hemoglobin A1c 8.63 H (4.5-6.0) % Calcium (8.4-10.2) mg/dL Total Bilirubin (0.2-1.3) mg/dL AST (14-36) U/L ALT (0-35) U/L Alkaline Phosphatase (38-126) U/L Troponin I < 0.012 < 0.012 (0.000-0.034) ng/mL Serum Total Protein (6.3-8.2) g/dL Albumin (3.5-5.0) g/dL 01/07/21 01/07/21 01/07/21 Range/Units 15:50 18:35 23:04 WBC (4.0-10.5) K/mm3 RBC (4.1-5.4) M/mm3 Hgb (12.0-16.0) gm/dl Hct (35-47) % MCV (78-100) fl MCH (26-32) pg MCHC (32-36) g/dl RDW (11.5-14.0) % Plt Count (150-450) K/mm3 MPV (7.5-11.0) fl Gran % (36.0-66.0) % Eos # (Auto) (0-0.5) Absolute Lymphs (auto) (1.0-4.6) Absolute Monos (auto) (0.0-1.3) Lymphocytes % (24.0-44.0) % Monocytes % (0.0-12.0) % Eosinophils % (0.00-5.0) % Basophils % (0.0-0.4) % Absolute Granulocytes (1.4-6.9) Basophils # (0-0.4) Sodium (137-145) mmol/L Potassium (3.5-5.1) mmol/L Chloride (98-107) mmol/L Carbon Dioxide (22-30) mmol/L Anion Gap (5-15) MEQ/L BUN (7-17) mg/dL Creatinine (0.52-1.04) mg/dL Estimated GFR ML/MIN Glucose (74-106) mg/dL POC Glucometer 153 H 227 H (74 to 106) mg/dL Hemoglobin A1c (4.5-6.0) % Calcium (8.4-10.2) mg/dL Total Bilirubin (0.2-1.3) mg/dL AST (14-36) U/L ALT (0-35) U/L Alkaline Phosphatase (38-126) U/L Troponin I < 0.012 (0.000-0.034) ng/mL Serum Total Protein (6.3-8.2) g/dL Albumin (3.5-5.0) g/dL 01/08/21 01/08/21 01/08/21 Range/Units 05:35 05:35 11:20 WBC 4.5 (4.0-10.5) K/mm3 RBC 4.10 (4.1-5.4) M/mm3 Hgb 12.3 (12.0-16.0) gm/dl Hct 37.6 (35-47) % MCV 91.7 (78-100) fl MCH 30.0 (26-32) pg MCHC 32.7 (32-36) g/dl RDW 14.1 H (11.5-14.0) % Plt Count 157 (150-450) K/mm3 MPV 10.6 (7.5-11.0) fl Gran % 59.5 (36.0-66.0) % Eos # (Auto) 0.19 (0-0.5) Absolute Lymphs (auto) 1.14 (1.0-4.6) Absolute Monos (auto) 0.46 (0.0-1.3) Lymphocytes % 25.5 (24.0-44.0) % Monocytes % 10.3 (0.0-12.0) % Eosinophils % 4.3 (0.00-5.0) % Basophils % 0.4 (0.0-0.4) % Absolute Granulocytes 2.66 (1.4-6.9) Basophils # 0.02 (0-0.4) Sodium 137 (137-145) mmol/L Potassium 4.2 (3.5-5.1) mmol/L Chloride 105 (98-107) mmol/L Carbon Dioxide 25 (22-30) mmol/L Anion Gap 10.9 (5-15) MEQ/L BUN 27 H (7-17) mg/dL Creatinine 1.37 H (0.52-1.04) mg/dL Estimated GFR 39.3 ML/MIN Glucose 169 H (74-106) mg/dL POC Glucometer 214 H (74 to 106) mg/dL Hemoglobin A1c (4.5-6.0) % Calcium 9.0 (8.4-10.2) mg/dL Total Bilirubin 0.50 (0.2-1.3) mg/dL AST 17 (14-36) U/L ALT 15 (0-35) U/L Alkaline Phosphatase 61 (38-126) U/L Troponin I (0.000-0.034) ng/mL Serum Total Protein 6.0 L (6.3-8.2) g/dL Albumin 3.4 L (3.5-5.0) g/dL Radiology Exams: Radiology Procedures Category Date Time Status ABDOMEN AND PELVIS W/0 CONTRAS [CT] Stat Exams 01/07/21 07:04 Completed LIVER OR SPLEEN [US] Urgent Exams 01/08/21 09:15 Completed Assessment/Plan (1) Abdominal pain Current Visit: Yes Status: Acute Qualifiers: Abdominal location: generalized Qualified Code(s): R10.84 - Generalized abdominal pain Code(s): R10.9 - UNSPECIFIED ABDOMINAL PAIN (2) UTI (urinary tract infection) Current Visit: Yes Status: Acute Qualifiers: Urinary tract infection type: acute pyelonephritis Qualified Code(s): N10 - Acute pyelonephritis Code(s): N39.0 - URINARY TRACT INFECTION, SITE NOT SPECIFIED (3) Uncontrolled diabetes mellitus Current Visit: Yes Status: Chronic Qualifiers: Diabetes mellitus type: type 2 Glycemic state: with hyperglycemia Qualified Code(s): E11.65 - Type 2 diabetes mellitus with hyperglycemia Code(s): E11.65 - TYPE 2 DIABETES MELLITUS WITH HYPERGLYCEMIA (4) HTN (hypertension) Current Visit: Yes Status: Chronic Qualifiers: Hypertension type: essential hypertension Code(s): I10 - ESSENTIAL (PRIMARY) HYPERTENSION
[2021-01-08] MEDS: Klonopin 0.5 MG PO SCH ×2 (12:29→22:37)
[2021-01-08] MEDS: HUMALOG SQ PRN ×2 (12:32→17:19)
[2021-01-08] MEDS: AMARYL 4 MG PO SCH (12:51)
[2021-01-08] MEDS: Toprol Xl 50 MG PO SCH (22:36)
[2021-01-08] MEDS: ZOLOFT 50 MG TABLET PO SCH (22:36)
[2021-01-09] MEDS: AMARYL 4 MG PO SCH (07:32)
--- NOTE | 2021-01-09 07:34 | PCM.NOTE ---
Date and Time: 01/09/21732 Subjective Assessment: s/p EGD - Review of Systems Constitutional: No Fever, No Chills Eyes: No Symptoms Ears, Nose, & Throat: No Symptoms Respiratory: No Cough, No Short Of Breath Cardiac: No Chest Pain, No Edema, No Syncope Abdominal/Gastrointestinal: No Abdominal Pain, No Nausea, No Vomiting, No Diarrhea Genitourinary Symptoms: No Dysuria Musculoskeletal: No Back Pain, No Neck Pain Skin: No Rash Neurological: No Dizziness, No Focal Weakness, No Sensory Changes Psychological: No Symptoms Endocrine: No Symptoms Hematologic/Lymphatic: No Symptoms Immunological/Allergic: No Symptoms Objective Exam General Appearance: no apparent distress, alert Neurologic Exam: alert, oriented x 3, cooperative, normal mood/affect, nml cerebellar function, sensation nml, No motor deficits Skin Exam: normal color, warm, dry Eye Exam: PERRL, EOMI, eyes nml inspection Ears, Nose, Throat Exam: normal ENT inspection, pharynx normal, moist mucous membranes Neck Exam: normal inspection, non-tender, supple, full range of motion Respiratory Exam: normal breath sounds, lungs clear, No respiratory distress Cardiovascular Exam: regular rate/rhythm, normal heart sounds Gastrointestinal/Abdomen Exam: soft, No tenderness, No mass Extremity Exam: normal inspection, normal range of motion Back Exam: normal inspection, normal range of motion, No CVA tenderness, No vertebral tenderness Pelvic Exam: deferred Rectal Exam: deferred OBJECTIVE DATA Vital Signs: Vital Signs - 24 hr Temp Pulse Resp BP Pulse Ox 01/09/21 04:00 97.6 F 64 16 138/63 98 01/09/21 00:00 98.9 F 65 17 112/55 96 01/08/21 19:40 97.8 F 65 18 134/60 100 01/08/21 16:00 98.3 F 78 20 137/67 95 01/08/21 12:00 98.2 F 75 20 126/72 96 Pain Assessment - Last Documented Pain Intensity 3 Pain Scale Used 0-10 Pain Scale Intake and Output: Intake & Output 01/06/21 01/07/21 01/08/21 01/09/21 11:59 11:59 11:59 11:59 Intake Total 2268 1807 Output Total 1400 1800 Balance 868 7 Weight 105.1 kg 105.1 kg Lab Results: Lab Results-Last 24 Hours 01/08/21 01/08/21 01/08/21 Range/Units 11:20 16:31 22:27 POC Glucometer 214 H 206 H 176 H (74 to 106) mg/dL Radiology Exams: Radiology Procedures Category Date Time Status ABDOMEN AND PELVIS W/0 CONTRAS [CT] Stat Exams 01/07/21 07:04 Completed LIVER OR SPLEEN [US] Urgent Exams 01/08/21 09:15 Completed Multi-Disciplinary Progress Notes: Multi-Disciplinary Progress Notes 01/08/21 13:38 Case Management Note by Dori Osman S/W PATIENT- SHE CONTINUES TO DENY ANY NEW NEEDS REGARDING DC AT THIS TIME. HER GRANDSON LIVES WITH HER AND SHE PLANS TO RETURN HOME TO HER PRIOR LEVEL OF FUNCTIONING AT TIME OF DC Initialized on 01/08/21 13:38 - END OF NOTE Assessment/Plan (1) Abdominal pain Current Visit: Yes Status: Acute Qualifiers: Abdominal location: generalized Qualified Code(s): R10.84 - Generalized abdominal pain Code(s): R10.9 - UNSPECIFIED ABDOMINAL PAIN (2) UTI (urinary tract infection) Current Visit: Yes Status: Acute Qualifiers: Urinary tract infection type: acute pyelonephritis Qualified Code(s): N10 - Acute pyelonephritis Code(s): N39.0 - URINARY TRACT INFECTION, SITE NOT SPECIFIED (3) Uncontrolled diabetes mellitus Current Visit: Yes Status: Chronic Qualifiers: Diabetes mellitus type: type 2 Glycemic state: with hyperglycemia Qualified Code(s): E11.65 - Type 2 diabetes mellitus with hyperglycemia Code(s): E11.65 - TYPE 2 DIABETES MELLITUS WITH HYPERGLYCEMIA (4) HTN (hypertension) Current Visit: Yes Status: Chronic Qualifiers: Hypertension type: essential hypertension Code(s): I10 - ESSENTIAL (PRIMARY) HYPERTENSION
[2021-01-09 08:09] VITALS: BP 127/88; PULSE 60; O2SAT 97
[2021-01-09] MEDS: Zestril 10 MG PO SCH (09:33)
[2021-01-09] MEDS: SYNTHROID 50 MCG PO SCH (09:33)
[2021-01-09] MEDS: Klonopin 0.5 MG PO SCH (09:33)
[2021-01-09] MEDS: PROTONIX 40 MG IV IV SCH (09:33)
[2021-01-09] MEDS: ROCEPHIN 1 Gm-D5w 50 ml Bag** 1 G/50 ML IVPB IV SCH (09:33)
--- NOTE | 2021-01-09 15:31 | PCM.DS ---
Discharge Summary Date of Admission: 01/07/21 10:19 Admitting Physician: FAY PIEDRA Consults: Consults on Case 01/07/21 13:47 Consult Surgery ROUTINE Primary Care Provider: FAY PIEDRA Allergies Allergies Sulfa (Sulfonamide Antibiotics) Allergy (Mild, Verified 01/07/21 10:46) [facility] Summary - Hospital Course Hospital Course: Chief Complaint Diagnosis Vomiting with blood for Allergies Allergy/AdvReac Type Severity Reaction Status Date / Time Sulfa (Sulfonamide Allergy Mild Hives Verified 01/07/21 10:46 Antibiotics) Vital Signs (Last 24 hours) Temp Pulse Resp BP Pulse Ox 01/09/21 08:00 97.8 F 60 18 127/88 97 01/09/21 04:00 97.6 F 64 16 138/63 98 01/09/21 00:00 98.9 F 65 17 112/55 96 01/08/21 19:40 97.8 F 65 18 134/60 100 01/08/21 16:00 98.3 F 78 20 137/67 95 Home Medications Medication Instructions Recorded Confirmed Last Taken Type Ciprofloxacin [Cipro 500 MG] 500 mg PO BID 5 Days #10 tablet 01/09/21 Unknown Rx Famotidine 20 mg [Pepcid 20 20 mg PO BID 30 Days #60 tablet 01/09/21 Unknown Rx MG] PANTOPRAZOLE 40 mg Tablet 40 mg PO QAM 30 Days #30 tab 01/09/21 Unknown Rx [Protonix 40MG Tablet] Current Medications Discontinued Medications Generic Name Dose Route Start Last Admin Trade Name Rey PRN Reason Stop Dose Admin Aspirin 81 mg 01/07/21 14:00 01/07/21 13:27 Ecotrin 81 Mg PO 02/06/21 13:59 81 mg DAILY CALLIE Administration Clonazepam 1 mg 01/07/21 14:00 01/09/21 09:33 Klonopin 0.5 Mg PO 02/06/21 13:59 1 mg BID CALLIE Administration Enoxaparin Sodium 40 mg 01/07/21 10:00 01/07/21 11:22 Enoxaparin Sodium SQ 02/06/21 09:59 40 mg DAILY CALLIE Administration Ergocalciferol 50,000 unit 01/10/21 10:00 Vitamin D2 PO 02/09/21 09:59 WEEKLY CALLIE Glimepiride 4 mg 01/07/21 14:00 Amaryl 2 Mg PO 02/06/21 13:59 DAILY CALLIE Glimepiride 4 mg 01/08/21 14:00 01/09/21 07:32 Amaryl 4 Mg PO 02/07/21 13:59 4 mg BREAKFAST CALLIE Administration Hydromorphone HCl 0.5 mg 01/07/21 06:35 01/07/21 06:45 Hydromorphone 1 Mg/Ml Injection IV 01/07/21 06:36 0.5 mg STAT ONE Administration Hydromorphone HCl Confirm 01/07/21 06:41 Hydromorphone 1 Mg/Ml Injection Administered 01/07/21 06:42 Dose 1 mg .ROUTE .STK-MED ONE Hydromorphone HCl 0.5 mg 01/07/21 08:21 Hydromorphone 1 Mg/Ml Injection IV 01/13/21 12:00 Q1H PRN PRN PAIN Sodium Chloride 1,000 mls @ 999 mls/hr 01/07/21 06:35 01/07/21 08:01 Sodium Chloride 0.9% 1000 Ml IV 01/07/21 07:35 Infused .Q1H1M STA Infusion Sodium Chloride Confirm 01/07/21 06:42 Sodium Chloride 0.9% 1000 Ml Administered 01/07/21 06:43 Dose 1,000 mls @ ud .ROUTE .STK-MED ONE Sodium Chloride 1,000 mls @ 80 mls/hr 01/07/21 08:30 01/08/21 22:36 Sodium Chloride 0.9% 1000 Ml IV 02/06/21 08:29 80 mls/hr .[id number] CALLIE Administration Ceftriaxone Sodium/Dextrose 1 g in 50 mls @ 100 mls/hr 01/08/21 10:00 01/09/21 09:33 Rocephin 1 Gm-D5w 50 Ml Bag IV 01/11/21 09:59 100 mls/hr Q24H10 CALLIE Administration Ceftriaxone Sodium/Dextrose 1 g in 50 mls @ 100 mls/hr 01/07/21 08:29 01/07/21 09:49 Rocephin 1 Gm-D5w 50 Ml Bag IV 01/07/21 08:58 100 mls/hr STAT STA 100 mls/hr Administration Ceftriaxone Sodium/Dextrose Confirm 01/07/21 09:48 Rocephin 1 Gm-D5w 50 Ml Bag Administered 01/07/21 09:49 Dose 1 g in 50 mls @ ud IV .STK-MED ONE Lactated Ringer's 1,000 mls @ 50 mls/hr 01/08/21 05:00 01/08/21 05:15 Lactated Ringers IV 01/09/21 00:59 50 mls/hr .Q20H CALLIE Administration Insulin Human Lispro 0 unit 01/07/21 08:21 01/08/21 17:19 Humalog SQ 02/06/21 08:20 2 unit UD PRN Administration HYPERGLYCEMIA Levothyroxine Sodium 50 mcg 01/07/21 14:00 01/09/21 09:33 Synthroid 50 Mcg PO 02/06/21 13:59 50 mcg DAILY CALLIE Administration Lisinopril 10 mg 01/07/21 14:00 01/09/21 09:33 Zestril 10 Mg PO 02/06/21 13:59 10 mg DAILY CALLIE Administration Metoprolol Succinate 50 mg 01/07/21 22:00 01/08/21 22:36 Toprol Xl 50 Mg PO 02/06/21 21:59 50 mg HS CALLIE Administration Ondansetron HCl 4 mg 01/07/21 06:35 01/07/21 06:46 Zofran 4 Mg/2 Ml Vial IV 01/07/21 06:36 4 mg STAT ONE Administration Ondansetron HCl Confirm 01/07/21 06:40 Zofran 4 Mg/2 Ml Vial Administered 01/07/21 06:41 Dose 4 mg .ROUTE .STK-MED ONE Ondansetron HCl 4 mg 01/07/21 08:21 Zofran 4 Mg/2 Ml Vial IV 02/06/21 08:20 Q6H PRN PRN NAUSEA/VOMITING Pantoprazole Sodium 40 mg 01/07/21 10:00 01/09/21 09:33 Protonix 40 Mg Iv IV 02/06/21 09:59 40 mg Q24H10 CALLIE Administration Propofol Confirm 01/08/21 06:43 Diprivan 200 Mg/20 Ml Administered 01/08/21 06:44 Dose 200 mg IV .STK-MED ONE Sertraline HCl 50 mg 01/07/21 22:00 01/08/21 22:36 Zoloft 50 Mg Tablet PO 02/06/21 21:59 50 mg HS CALLIE Administration Intake & Output (Last 24 hours) 01/07/21 01/08/21 01/09/21 01/10/21 11:59 11:59 11:59 11:59 Intake Total 2268 1807 Output Total 1400 1800 Balance 868 7 Weight 105.1 kg 105.1 kg Microbiology Results (Last 24 hours) 01/07/21 07:45 Urine, Void Urine Culture - Final Klebsiella Pneumoniae 01/07/21 08:40 Blood Blood Culture Gram Stain - Pending 01/07/21 08:40 Blood Blood Culture - Preliminary NO GROWTH TO DATE 01/07/21 08:33 Blood Blood Culture Gram Stain - Pending 01/07/21 08:33 Blood Blood Culture - Preliminary NO GROWTH TO DATE Laboratory Results (Last 24 hours) 01/09/21 01/08/21 01/08/21 07:39 22:27 16:31 POC Glucometer 177 H 176 H 206 H Orders (Last 24 hours) Category Date Time Status Discharge Routine Discharge 01/09/21 Ordered POCT GLUCOSE Stat Lab 01/08/21 16:31 Completed POCT GLUCOSE Stat Lab 01/08/21 22:27 Completed POCT GLUCOSE Stat Lab 01/09/21 07:39 Completed Ergocalciferol (Vitamin D2) [Vitamin D2] Med 01/10/21 10:00 Discontinued 50,000 unit PO WEEKLY Patient Care Notes (Last 24 hours) 01/09/21 10:28 Nursing Note by Yessenia Herman urine culture and sensitivity results came in. dr piedra d/c'ing pt on cipro. cipro was not on the sensitivity. spoke with sabrina in pharmacy and he states that since it is sensitive to levofloxacin and sensitive to all meds on the list he feels like cipro is appropriate Initialized on 01/09/21 10:28 - END OF NOTE 01/09/21 09:13 Case Management Note by Elizabeth Spring PATIENT REPORTS SHE LIVES WITH GRANDSON, WHO CARES FOR HER AND COOKS ALL HER MEALS WELL CLEANS. STATES SHE ALSO HAS 2 NEIGHBORS WHO ARE FAMILY MEMBERS WHO CAN HELP WHEN GRANDSON IS OUT, AND THEY CHECK ON HER FREQUENTLY. SHE REPORTS SHE HAS 1 ROLLATER WALKER, ONE WALKER WITH WHEELS, ONE WALKER WITHOUT WHEELS AND 2 CANES, ALL WORKING AND NOT BROKEN. PT STATES SHE DOES NOT ANTICIPATE ANY FURTHER NEEDS AT DISCHARGE, WILL CONTINUE TO FOLLOW NEEDED. . Initialized on 01/09/21 09:13 - END OF NOTE - Vitals & Intake/Output Vital Signs: Vital Signs Temperature 97.8 F 01/09/21 08:00 Pulse Rate 60 01/09/21 08:00 Respiratory Rate 18 01/09/21 08:00 Blood Pressure 127/88 01/09/21 08:00 O2 Sat by Pulse Oximetry 97 01/09/21 08:00 Intake & Output: Intake & Output 01/07/21 01/08/21 01/09/21 01/10/21 11:59 11:59 11:59 11:59 Intake Total 2268 1807 Output Total 1400 1800 Balance 868 7 Weight 105.1 kg 105.1 kg - Lab Result Diagrams: 01/08/21 05:35 01/08/21 05:35 Lab Results-Last 24 Hrs: Lab Results-Last 24 Hours 01/08/21 01/08/21 01/09/21 Range/Units 16:31 22:27 07:39 POC Glucometer 206 H 176 H 177 H (74 to 106) mg/dL Micro Results-Entire Visit: Microbiology 01/07/21 07:45 Urine Culture - Final Urine, Void Klebsiella Pneumoniae 01/07/21 08:40 Blood Culture - Preliminary Blood NO GROWTH TO DATE 01/07/21 08:33 Blood Culture - Preliminary Blood NO GROWTH TO DATE Accuchecks Date 01/07/21 Time 23:10 - Radiology Exams Ordered Rad Exams-Entire Visit: Radiology Procedures Category Date Time Status LIVER OR SPLEEN [US] Urgent Exams 01/08/21 09:15 Completed Discharge Exam General Appearance: no apparent distress, alert Neurologic Exam: alert, oriented x 3, cooperative, normal mood/affect, nml cerebellar function, sensation nml, No motor deficits Eye Exam: PERRL, EOMI, eyes nml inspection Ears, Nose, Throat Exam: normal ENT inspection, pharynx normal, moist mucous membranes Neck Exam: normal inspection, non-tender, supple, full range of motion Respiratory Exam: normal breath sounds, lungs clear, No respiratory distress Cardiovascular Exam: regular rate/rhythm, normal heart sounds Gastrointestinal/Abdomen Exam: soft, No tenderness, No mass Pelvic Exam: deferred Rectal Exam: deferred Back Exam: normal inspection, normal range of motion, No CVA tenderness, No vertebral tenderness Extremity Exam: normal inspection, normal range of motion Skin Exam: normal color, warm, dry Final Diagnosis/Problem List - Final Discharge Diagnosis/Problem (1) Esophagitis determined by endoscopy Status: Acute Code(s): K20.90 - ESOPHAGITIS, UNSPECIFIED WITHOUT BLEEDING (2) Abdominal pain Status: Resolved Code(s): R10.9 - UNSPECIFIED ABDOMINAL PAIN (3) UTI (urinary tract infection) Status: Resolved Code(s): N39.0 - URINARY TRACT INFECTION, SITE NOT SPECIFIED (4) Uncontrolled diabetes mellitus Status: Chronic Code(s): E11.65 - TYPE 2 DIABETES MELLITUS WITH HYPERGLYCEMIA (5) HTN (hypertension) Status: Chronic Code(s): I10 - ESSENTIAL (PRIMARY) HYPERTENSION - Discharge Discharge Date: 01/09/21 Disposition: Home, Self-Care Condition: Stable Prescriptions: New Ciprofloxacin [Cipro 500 MG] 500 mg PO BID 5 Days #10 tablet Famotidine 20 mg [Pepcid 20 MG] 20 mg PO BID 30 Days #60 tablet PANTOPRAZOLE 40 mg Tablet [Protonix 40MG Tablet] 40 mg PO QAM 30 Days #30 tab Continue Clonazepam 0.5 mg [Klonopin 0.5 MG] 1 mg PO BID Sertraline HCl 50 mg [Zoloft 50 mg Tablet] 50 mg PO HS Metoprolol Succinate 50 mg [Toprol Xl 50 MG] 50 mg PO HS Levothyroxine Sodium 50 Mcg [Synthroid 50 Mcg] 50 mcg PO DAILY Glimepiride 2 mg [Amaryl 2 MG] 4 mg PO DAILY Ergocalciferol (Vitamin D2) [Vitamin D2] 50,000 unit PO WEEKLY Lisinopril 10 mg [Zestril 10 MG] 10 mg PO DAILY Discontinued Aspirin 81 mg PO DAILY Instructions: Urinary Tract Infection, Adult (DC), [facility] Diet, Gastritis (DC), Acid Reflux and Gastroesophageal Reflux Disease in Adults Additional Instructions: stop taking aspirin until you follow up with dr. piedra. please address this with dr. piedra at your follow up appointment Follow up with: FAY PIEDRA MD [Primary Care Provider] - 01/14/21 2:00 pm (at [facility]) Forms: Discharge Instructions
[2021-01-10] MEDS ORDERED: VITAMIN D2 PO SCH (10:00)
== END 2021-01-09 11:24 | disposition home or self-care (01) ==
LOC: ED 05:38 → MED SURG 10:19
PROVIDERS: ADMIT General Practice; ATTEND General Practice
DX: K20.90 Esophagitis, unspecified without bleeding (principal); R10.13 Epigastric pain; R10.9 Unspecified abdominal pain; E11.9 Type 2 diabetes mellitus without complications; K44.9 Diaphragmatic hernia without obstruction or gangrene; I10 Essential (primary) hypertension; N39.0 Urinary tract infection, site not specified; E11.65 Type 2 diabetes mellitus with hyperglycemia; E03.9 Hypothyroidism, unspecified; Z79.899 Other long term (current) drug therapy; Z20.828 Contact with and (suspected) exposure to other viral communicable diseases
CPT/HCPCS: 0241U; 36415; 43239; 74176; 76705; 80053; 81001; 82150; 82947; 83036; 83605; 83690; 84484; 85025; 87040; 87077; 87086; 87186; 96360; 96374; 96375; 99285; 99100; G0378; J0696; J1170; J1650; J1817; J2405; J2704; A9270-GY

== ENCOUNTER 2021-06-03 21:11 | Emergency (ER) | payer MEDICARE, OTHER ==
--- NOTE | 2021-06-03 23:16 | ERPHSYRPT ---
- History of Present Illness Time Seen by Provider: 06/03/21 21:30 Source: patient Exam Limitations: no limitations Patient Subjective Stated Complaint: Pt fell at home in a hole in the driveway getting out of the car. Triage Nursing Assessment: pt fell this evening at 8pm, getting out of the car, she stepped in a hole and fell onto left side. Pt has skin tear to lt lower leg saxena shape, approx 2.0 cm L x 0.1 cm D, with serosanguinous bleeding under the skin. Physician History: Patient is an 81-year-old female presents to our ED for evaluation of left leg pain. Patient states she was at home stepped out of her car and into a hole in the ground patient suffered a laceration to the lateral aspect of the left leg. Tetanus is up-to-date. Patient states she is experiencing pain to this area. There is a skin tear observed measuring 2.0 x 0.1 cm. No other injuries reported. Patient experiencing some discomfort but she declined pain medication. Symptoms are mild to moderate in intensity. Patient voices no other complaints or concerns at this time. Method of Injury: twisted Occurred: this evening Quality: constant Severity of Pain-Max: moderate Severity of Pain-Current: mild Lower Extremities Pain: leg: left Modifying Factors: Improves With: movement Associated Symptoms: none Allergies/Adverse Reactions: Sulfa (Sulfonamide Antibiotics) Allergy (Mild, Verified 06/03/21 22:02) Hives Home Medications: Clonazepam 0.5 mg [Klonopin 0.5 MG] 1 mg PO BID 08/19/14 [History] Glimepiride 2 mg [Amaryl 2 MG] 4 mg PO DAILY 08/19/14 [History] Levothyroxine Sodium 50 Mcg [Synthroid 50 Mcg] 50 mcg PO DAILY 08/19/14 [History] Metoprolol Succinate 50 mg [Toprol Xl 50 MG] 50 mg PO HS 08/19/14 [History] Sertraline HCl 50 mg [Zoloft 50 mg Tablet] 50 mg PO HS 08/19/14 [History] Ergocalciferol (Vitamin D2) [Vitamin D2] 50,000 unit PO WEEKLY 12/20/16 [History] Lisinopril 10 mg [Zestril 10 MG] 10 mg PO DAILY 12/20/16 [History] Hx Tetanus, Diphtheria Vaccination/Date Given: Yes Hx Influenza Vaccination/Date Given: No Hx Pneumococcal Vaccination/Date Given: Yes Immunizations Up to Date: Yes Travel Risk - International Travel Have you traveled outside of the country in past 3 weeks: No - Coronavirus Screening Are you exhibiting any of the following symptoms?: No Close contact with a COVID-19 positive Pt in past 14-21 Days: No - Vaccine Status Have you recieved a Covid-19 vaccination: Yes [place]: Moderna - Vaccination Dates Date of 2cond Vaccination (if applicable): 11/06/20 Comment: 3RD SHOT 05/17/21 - Review of Systems Constitutional: No Symptoms, No Fever, No Chills Eyes: No Symptoms Ears, Nose, & Throat: No Symptoms Respiratory: No Symptoms, No Cough, No Dyspnea Cardiac: No Symptoms, No Chest Pain, No Edema, No Syncope Abdominal/Gastrointestinal: No Symptoms, No Abdominal Pain, No Nausea, No Vomiting, No Diarrhea Genitourinary Symptoms: No Symptoms, No Dysuria Musculoskeletal: No Symptoms, No Back Pain, No Neck Pain Skin: No Symptoms, No Rash Neurological: No Symptoms, No Dizziness, No Focal Weakness, No Sensory Changes Psychological: No Symptoms Endocrine: No Symptoms Hematologic/Lymphatic: No Symptoms Immunological/Allergic: No Symptoms All Other Systems: Reviewed and Negative - Past Medical History Pertinent Past Medical History: Yes Neurological History: No Pertinent History ENT History: No Pertinent History Cardiac History: High Cholesterol, Hypertension Respiratory History: No Pertinent History Endocrine Medical History: Diabetes Type II, Hypothyroidism Musculoskeletal History: Osteoarthritis GI Medical History: GERD History: No Pertinent History Psycho-Social History: Depression Female Reproductive Disorders: No Pertinent History Other Medical History: Melanoma - Past Surgical History Past Surgical History: Yes Neuro Surgical History: Other Cardiac: No Pertinent History Respiratory: No Pertinent History Gastrointestinal: Appendectomy, Cholecystectomy Genitourinary: No Pertinent History Musculoskeletal: No Pertinent History Female Surgical History: Hysterectomy, Section Other Surgical History: Pinched nerve, collar bone, right shoulder, left arm and wrist surgery, lt knee replacement, rt knee replacement. - Social History Smoking Status: Never smoker Exposure to second hand smoke: Yes Drug Use: none Patient Lives Alone: No - Female History Hx Now: No - Nursing Vital Signs Nursing Vital Signs: Initial Vital Signs Temperature 98.2 F 06/03/21 21:11 Pulse Rate 60 06/03/21 21:11 Respiratory Rate 18 06/03/21 21:11 Blood Pressure 139/64 06/03/21 21:11 O2 Sat by Pulse Oximetry 98 06/03/21 21:11 Pain Scale Pain Intensity 4 - Physical Exam General Appearance: no apparent distress, alert Eyes, Ears, Nose, Throat Exam: moist mucous membranes Neck Exam: non-tender, supple Cardiovascular/Respiratory Exam: chest non-tender, normal breath sounds, regular rate/rhythm, no respiratory distress Gastrointestinal/Abdominal Exam: non-tender, guarding Back Exam: normal inspection, No vertebral tenderness Hips Exam: bilateral: non-tender, normal inspection, normal range of motion, no evidence of injury Legs Exam: right leg: non-tender, normal inspection, normal range of motion, no evidence of injury, left leg: soft tissue tenderness, swelling, other (Tenderness along the anterolateral aspect of left leg including the anterior avelar extremities neurovascular intact distally. Compartments are soft. Cap refill less than 2 seconds.) Knees Exam: bilateral knee: non-tender, normal inspection, normal range of motion, no evidence of injury Ankle Exam: bilateral ankle: non-tender, normal inspection, normal range of motion, no evidence of injury Foot Exam: bilateral foot: non-tender, normal inspection, normal range of motion, no evidence of injury Neuro/Tendon Exam: normal sensation, normal motor functions Mental Status Exam: alert, oriented x 3, cooperative Skin Exam: normal color, warm, dry SpO2 Interpretation: normal SpO2: 98 O2 Delivery: Room Air - Course Nursing assessment & vital signs reviewed: Yes - Radiology Exams Lower Leg X-ray Interpretation: Interpreted by me (No fracture dislocations. There is a stable foreign body which is old. This is not related to today's injury.) Ordered Tests: Active Orders 24 hr Category Date Time Status LOWER LEG Stat Exams 06/03/21 23:32 Taken - Progress Progress: improved Progress Note: Patient received local wound care. Wound irrigated by RN. RN placed Steri- Strips. Steri-Strips to stay in place for 48 hours. Patient agrees to follow- up with primary care doctor within 48 hours for reevaluation. Portions of this note were created with voice recognition technology. There may be grammatical, spelling, punctuation or sound alike errors 06/03/21 23:22 There is a staple observed on the x-ray. Patient states this is residual from a previous procedure. This is not a foreign body acquired from today's injury. The wound is clean. No fractures or dislocations on the x-ray. No indication for further work-up. Will discharge at this time. 06/03/21 23:48 Counseled pt/family regarding: diagnosis, need for follow-up, rad results - Departure Departure Disposition: Home Clinical Impression: Skin tear Condition: Stable Critical Care Time: No Referrals: FAY PIEDRA MD [Primary Care Provider] - Additional Instructions: Discharge/Care Plan KASSI PORTILLO was seen on 06/03/21 in the Emergency Room. The patient was counseled regarding Diagnosis,Lab results, Imaging studies, need for follow up and when to return to the Emergency Room. Prescriptions given: Discharge Note I have spoken with the patient and/or caregivers. I have explained the patient's condition, diagnosis and treatment plan based on the information available to me at this time. I have answered the patient's and/or caregiver's questions and addressed any concerns. The patient and/or caregivers have as good understanding of the patient's diagnosis, condition and treatment plan as can be expected at this point. The vital signs have been stable. The patient's condition is stable and appropriate for discharge from the emergency department. The patient will pursue further outpatient evaluation with the primary care physician or other designated or consulting physician as outlined in the discharge instructions. The patient and/or caregivers are agreeable to this plan of care and follow-up instructions have been explained in detail. The patient and/or caregivers have received these instruction. The patient/and or caregivers are aware that any significant change in condition or worsening of symptoms should prompt an immediate return to this or the closest emergency department or call 911.
[2021-06-04 00:16] VITALS: BP 152/67; PULSE 58; O2SAT 99
--- NOTE | 2021-06-04 09:14 | XRAY ---
Indication: Pain and laceration following fall. Comparison: None 2 view left lower leg demonstrates mild proximal anterior soft tissue swelling, mild osteopenia, intact total knee arthroplasty, tiny heel spur, moderate midfoot degenerative changes, and mid lateral leg surgical staple. Plantar heel demonstrates 6 mm soft tissue wire-like foreign body. Remaining leg unremarkable.
== END 2021-06-04 00:16 | disposition home or self-care (01) ==
LOC: ED 21:11
DX: M79.605 Pain in left leg (principal); S81.812A Laceration without foreign body, left lower leg, initial encounter; W18.39XA Other fall on same level, initial encounter; Z79.899 Other long term (current) drug therapy; Z20.822 Contact with and (suspected) exposure to COVID-19
CPT/HCPCS: 73590; 99283

== ENCOUNTER 2022-08-12 08:32 | Emergency (ER) | payer MEDICARE, OTHER ==
--- NOTE | 2022-08-12 09:28 | XRAY ---
Indication: Distal first metatarsal open lesion. Comparison: None 3 portable nonweightbearing views right foot demonstrates osteopenia, moderate 1st MTP bunion deformity, moderate tarsometatarsal degenerative changes, tiny heel spurs, and small cuboid accessory ossicle. No other bony, articular, or soft tissue abnormalities.
[2022-08-12 09:37] VITALS: BP 139/83; O2SAT 98
[2022-08-12] MEDS ORDERED: CLEOCIN 150 MG CAPSULE PO ONE (09:46)
--- NOTE | 2022-08-12 09:58 | ERPHSYRPT ---
- History of Present Illness Time Seen by Provider: 08/12/22 09:52 Source: patient Exam Limitations: physical impairment Patient Subjective Stated Complaint: PT states "I am a diabetic and I have a callus on my foot and it busted open and I do not want to lose my foot." Triage Nursing Assessment: Pt presented alert and oriented X 3, skin pwd. Pt ambulates with an upright steady gait, able to speak i clear full sentences pt has slight wound in right foot. Physician History: 82 years old female with history of type 2 diabetes mellitus, hypertension, hyperlipidemia, anxiety, hypothyroidism presented in the ER with chief complaint of right foot/big toe redness with dull aching/burning pain mild for the last 3 days. Patient reports she had a callosities which became soft after taking shower and she removed it and next morning she noticed swelling around the big toe and gradually extending proximally to involve the dorsum of foot. It hurts to walk but manageable. No fever or chills reported. Patient is worried about being diabetic as it could be moving toward losing her foot if she does not take care of it appropriately. Timing/Duration: day(s) (3), gradual onset, worse Quality: burning, painful Severity: mild Location: feet Possible Causes: no cause identified Associated Symptoms: rash, swelling/mass/lumps Allergies/Adverse Reactions: Sulfa (Sulfonamide Antibiotics) Allergy (Mild, Verified 06/03/21 22:02) Hives Home Medications: Clonazepam 0.5 mg [Klonopin 0.5 MG] 1 mg PO BID 08/19/14 [History] Glimepiride 2 mg [Amaryl 2 MG] 4 mg PO DAILY 08/19/14 [History] Levothyroxine Sodium 50 Mcg [Synthroid 50 Mcg] 50 mcg PO DAILY 08/19/14 [History] Metoprolol Succinate 50 mg [Toprol Xl 50 MG] 50 mg PO HS 08/19/14 [History] Sertraline HCl 50 mg [Zoloft 50 mg Tablet] 50 mg PO HS 08/19/14 [History] Ergocalciferol (Vitamin D2) [Vitamin D2] 50,000 unit PO WEEKLY 12/20/16 [History] Lisinopril 10 mg [Zestril 10 MG] 10 mg PO DAILY 12/20/16 [History] Hx Tetanus, Diphtheria Vaccination/Date Given: Yes Hx Influenza Vaccination/Date Given: No Hx Pneumococcal Vaccination/Date Given: Yes Immunizations Up to Date: Yes Travel Risk - International Travel Have you traveled outside of the country in past 3 weeks: No - Coronavirus Screening Are you exhibiting any of the following symptoms?: No Close contact with a COVID-19 positive Pt in past 14-21 Days: No - Vaccine Status Have you recieved a Covid-19 vaccination: Yes 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 - Vaccination Dates Date of 2cond Vaccination (if applicable): 11/06/20 Comment: 3RD SHOT 05/17/21 - Review of Systems Constitutional: No Symptoms Eyes: No Symptoms Ears, Nose, & Throat: No Symptoms Respiratory: No Symptoms Cardiac: No Symptoms Abdominal/Gastrointestinal: No Symptoms Musculoskeletal: Joint Redness, Joint Pain Skin: Cellulitis, Skin Lesions Neurological: No Symptoms Endocrine: No Symptoms Hematologic/Lymphatic: No Symptoms Immunological/Allergic: No Symptoms - Past Medical History Pertinent Past Medical History: Yes Neurological History: No Pertinent History ENT History: No Pertinent History Cardiac History: High Cholesterol, Hypertension Respiratory History: No Pertinent History Endocrine Medical History: Diabetes Type II, Hypothyroidism Musculoskeletal History: Osteoarthritis GI Medical History: GERD History: No Pertinent History Psycho-Social History: Depression Female Reproductive Disorders: No Pertinent History Other Medical History: Melanoma - Past Surgical History Past Surgical History: Yes Neuro Surgical History: Other Cardiac: No Pertinent History Respiratory: No Pertinent History Gastrointestinal: Appendectomy, Cholecystectomy Genitourinary: No Pertinent History Musculoskeletal: No Pertinent History Female Surgical History: Hysterectomy, Section Other Surgical History: Pinched nerve, collar bone, right shoulder, left arm and wrist surgery, lt knee replacement, rt knee replacement. - Social History Smoking Status: Never smoker Exposure to second hand smoke: Yes Drug Use: none Patient Lives Alone: No - Nursing Vital Signs Nursing Vital Signs: Initial Vital Signs Temperature 97.9 F 08/12/22 08:37 Pulse Rate 83 08/12/22 08:37 Respiratory Rate 18 08/12/22 08:37 Blood Pressure 166/93 08/12/22 08:37 O2 Sat by Pulse Oximetry 99 08/12/22 08:37 Pain Scale Pain Intensity 0 - Physical Exam General Appearance: no apparent distress Eye Exam: PERRL/EOMI Ears, Nose, Throat Exam: normal ENT inspection Neck Exam: normal inspection, full range of motion Respiratory Exam: normal breath sounds, lungs clear Cardiovascular Exam: regular rate/rhythm, normal heart sounds Extremity Exam: inflammation, swelling (Minimal swelling and tenderness of right big toe with erythema extending proximally. Blanchable. Mild increased temperature. ), tenderness Neurologic Exam: alert, oriented x 3, cooperative Skin Exam: normal color SpO2 Interpretation: normal SpO2: 98 O2 Delivery: Room Air Ordered Tests: Active Orders 24 hr Category Date Time Status FOOT (MINIMUM 3 VIEWS) Stat Exams 08/12/22 08:48 Completed BLOOD CULTURE Stat Lab 08/12/22 Ordered CBC W DIFF Stat Lab 08/12/22 09:45 Ordered CMP Stat Lab 08/12/22 09:45 Ordered Medication Summary Discontinued Medications Generic Name Dose Route Start Last Admin Trade Name Freq PRN Reason Stop Dose Admin Clindamycin HCl 300 mg 08/12/22 09:46 08/12/22 09:47 Clindamycin Hcl 150 Mg Capsule PO 08/12/22 09:47 Not Given STAT ONE - Progress Progress: unchanged Progress Note: 08/12/22 10:01 I have obtain baseline labs and x-rays. Labs are pending. I have called podiatry office and Dr. Britton would be able to see this patient right now. I would not start her on any antibiotics and leave it up to him the choice of antibiotics. Patient is counseled about diabetic foot. Counseled pt/family regarding: lab results, diagnosis, need for follow-up, rad results - Departure Departure Disposition: Home Clinical Impression: Diabetic infection of right foot Condition: Stable Critical Care Time: No Referrals: FAY PIEDRA MD [Primary Care Provider] - Follow Up with PCP/3 days COMPA BROWN DPM [ACTIVE STAFF] - Follow up/PCP as directed (Go to his office right now) Instructions: Diabetic Foot Ulcer (DC), Cellulitis (Skin Infection), Adult (DC) Additional Instructions: Follow-up with Dr. Britton right now and follow his instructions for weightbearing and antibiotics and further management. Return to ER for increasing swelling pain redness, fever chills etc.
[2022-08-12 10:03] VITALS: PULSE 74
[2022-08-12 10:17] LABS: Absolute Neutrophil Ct (ANC) 4.56 x10^3/uL (1.4-6.9); Basophil (Absolute #) 0.03 x10^3/uL (0-0.4); Eosinophil % 2.8 % (0.00-5.0); Eosinophil (Absolute #) 0.18 x10^3/uL (0-0.5); Hematocrit 37.2 % (35-47); Hemoglobin 12.3 g/dL (12.0-16.0); Lymphocyte (Absolute #) 0.87 x10^3/uL (1.0-4.6); Lymphocytes % 13.7 % (24.0-44.0); Mean Cell Volume 91.4 fL (78-100); Mean Corpuscular Hemoglobin 30.2 pg (26-32); Mean Corpuscular Hgb Concent. 33.1 g/dL (32-36); Mean Platelet Volume 10.1 fL (7.5-11.0); Monocyte (Absolute #) 0.66 x10^3/uL (0.0-1.3); Monocytes % 10.4 % (0.0-12.0); Neutrophil % 72.1 % (36.0-66.0); Platelet Count 140 x10^3/uL (150-450); Red Blood Count 4.07 x10^6/uL (4.1-5.4); Red Cell Distribution Width 13.6 % (11.5-14.0); White Blood Count 6.3 x10^3/uL (4.0-10.5)
[2022-08-12 10:31] LABS: ALBUMIN 4.2 g/dL (3.5-5.0); ANION GAP 13.5 MEQ/L (5-15); BILIRUBIN,TOTAL 0.8 mg/dL (0.2-1.3); Calcium 9.2 mg/dL (8.4-10.2); Creatinine 1 1.47 mg/dL (0.52-1.04); EST GLOMERULAR FILTRATION RATE 36.1 ML/MIN; Potassium 4.9 mmol/L (3.5-5.1); Total Protein 7.2 g/dL (6.3-8.2)
== END 2022-08-12 10:15 | disposition home or self-care (01) ==
LOC: ED 08:32
DX: L08.9 Local infection of the skin and subcutaneous tissue, unspecified (principal); E11.621 Type 2 diabetes mellitus with foot ulcer; L97.519 Non-pressure chronic ulcer of other part of right foot with unspecified severity; M79.674 Pain in right toe(s); I10 Essential (primary) hypertension; E78.5 Hyperlipidemia, unspecified; Z79.84 Long term (current) use of oral hypoglycemic drugs; Z79.899 Other long term (current) drug therapy
CPT/HCPCS: 36415; 73630; 80053; 85025; 87040; 99283

== ENCOUNTER 2023-05-13 22:05 | Emergency (ER) | payer MEDICARE, OTHER ==
[2023-05-13] MEDS ORDERED: Zofran 4 MG/2 ML VIAL IV ONE (22:29)
[2023-05-13] MEDS ORDERED: TYLENOL 325 MG PO ONE (22:29)
[2023-05-13] MEDS ORDERED: Sodium Chloride 0.9% 1000 ML 1,000 ML IV STA (22:29)
[2023-05-13] MEDS ORDERED: SUBLIMAZE 100 MCG/2 ML IV ONE (22:29)
[2023-05-13 22:30] VITALS: TEMP 97.8
--- NOTE | 2023-05-13 22:34 | ERPHSYRPT ---
- History of Present Illness Time Seen by Provider: 05/13/23 22:10 Historian: patient, EMS Exam Limitations: no limitations Patient Subjective Stated Complaint: has dizziness recently, tonight vomited 3 times at home and once in ambulance. Triage Nursing Assessment: pt alert and oriented, answers questions approp. pt arrive per ambulance and transfers [facility] with assist of 3. respirations nonlabored. skin warm and dry, abd soft, bowel sounds hypo. pupils equaland reactive. pt moves bilat upper and lower ext without diff. Physician History: 83 years old female presented in the ER with chief complaint of abdominal pain with nausea and vomiting. Patient reports 3 episodes of nonprojectile, nonbilious vomiting with no hematemesis since evening and last episode while in the ambulance. Patient reports pain all over her abdomen specially in the upper and on the left side. Reports feeling dizzy and nauseous all day long. Denies any chest pain palpitations or shortness of breath. No fever or chills repor opal. Does report feeling weak fatigued tired and dehydrated. Allergies/Adverse Reactions: Sulfa (Sulfonamide Antibiotics) Allergy (Mild, Verified 05/13/23 22:30) Hives Home Medications: Clonazepam 0.5 mg [Klonopin 0.5 MG] 1 mg PO BID 08/19/14 [History] Glimepiride 2 mg [Amaryl 2 MG] 4 mg PO DAILY 08/19/14 [History] Levothyroxine Sodium 50 Mcg [Synthroid 50 Mcg] 50 mcg PO DAILY 08/19/14 [History] Metoprolol Succinate 50 mg [Toprol Xl 50 MG] 50 mg PO HS 08/19/14 [History] Sertraline HCl 50 mg [Zoloft 50 mg Tablet] 50 mg PO HS 08/19/14 [History] Ergocalciferol (Vitamin D2) [Vitamin D2] 50,000 unit PO WEEKLY 12/20/16 [History] Lisinopril 10 mg [Zestril 10 MG] 10 mg PO DAILY 12/20/16 [History] Hx Tetanus, Diphtheria Vaccination/Date Given: Yes Hx Influenza Vaccination/Date Given: No Hx Pneumococcal Vaccination/Date Given: Yes Immunizations Up to Date: Yes Travel Risk - International Travel Have you traveled outside of the country in past 3 weeks: No - Coronavirus Screening Are you exhibiting any of the following symptoms?: No Close contact with a COVID-19 positive Pt in past 14-21 Days: No - Vaccine Status Have you recieved a Covid-19 vaccination: Yes 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 - Vaccination Dates Date of 2cond Vaccination (if applicable): 11/06/20 - Review of Systems Constitutional: Fatigue, Weakness Eyes: No Symptoms Ears, Nose, & Throat: No Symptoms Respiratory: No Symptoms Cardiac: No Symptoms Abdominal/Gastrointestinal: Abdominal Pain, Nausea, Vomiting Genitourinary Symptoms: No Symptoms Musculoskeletal: Arthralgias Neurological: Dizziness Hematologic/Lymphatic: No Symptoms Immunological/Allergic: No Symptoms - Past Medical History Pertinent Past Medical History: Yes Neurological History: No Pertinent History ENT History: No Pertinent History Cardiac History: High Cholesterol, Hypertension Respiratory History: No Pertinent History Endocrine Medical History: Diabetes Type II, Hypothyroidism Musculoskeletal History: Osteoarthritis GI Medical History: GERD History: No Pertinent History Psycho-Social History: Depression Female Reproductive Disorders: No Pertinent History Other Medical History: Melanoma - Past Surgical History Past Surgical History: Yes Neuro Surgical History: Other Cardiac: No Pertinent History Respiratory: No Pertinent History Gastrointestinal: Appendectomy, Cholecystectomy Genitourinary: No Pertinent History Musculoskeletal: No Pertinent History Female Surgical History: Hysterectomy, Section Other Surgical History: Pinched nerve, collar bone, right shoulder, left arm and wrist surgery, lt knee replacement, rt knee replacement. - Social History Smoking Status: Never smoker Exposure to second hand smoke: No Drug Use: none Patient Lives Alone: No - Nursing Vital Signs Nursing Vital Signs: Initial Vital Signs Temperature 97.8 F 05/13/23 22:11 Pulse Rate 62 05/13/23 22:11 Respiratory Rate 18 05/13/23 22:11 Blood Pressure 177/78 05/13/23 22:11 O2 Sat by Pulse Oximetry 98 05/13/23 22:11 Pain Scale Pain Intensity 3 - Physical Exam General Appearance: no apparent distress, alert Eye Exam: PERRL/EOMI Ears, Nose, Throat Exam: normal ENT inspection Neck Exam: normal inspection, non-tender, full range of motion Respiratory Exam: normal breath sounds, lungs clear Cardiovascular Exam: regular rate/rhythm, normal heart sounds Gastrointestinal/Abdomen Exam: soft, normal bowel sounds, tenderness (Epigastric left upper quadrant/left flank) Extremity Exam: normal inspection, normal range of motion Neurologic Exam: alert, oriented x 3, cooperative, lifter II-XII nml as tested, normal mood/affect, sensation nml, No nml cerebellar function, No motor deficits Skin Exam: normal color SpO2 Interpretation: normal SpO2: 98 O2 Delivery: Room Air Ordered Tests: Medication Summary Discontinued Medications Generic Name Dose Route Start Last Admin Trade Name Rey PRN Reason Stop Dose Admin Acetaminophen 650 mg 05/13/23 22:29 05/13/23 23:07 Acetaminophen 325 Mg Tablet PO 05/13/23 22:30 650 mg STAT ONE Administration Acetaminophen Confirm 05/13/23 23:00 Acetaminophen 325 Mg Tablet Administered 05/13/23 23:01 Dose 650 mg .ROUTE .STK-MED ONE Fentanyl Citrate 50 mcg 05/13/23 22:29 05/13/23 23:06 Fentanyl Citrate 100 Mcg/2 Ml* Vial IV 05/13/23 22:30 50 mcg STAT ONE Administration Fentanyl Citrate Confirm 05/13/23 23:00 Fentanyl Citrate 100 Mcg/2 Ml* Vial Administered 05/13/23 23:01 Dose 100 mcg .ROUTE .STK-MED ONE Sodium Chloride 1,000 mls @ 999 mls/hr 05/13/23 22:29 05/13/23 23:06 Sodium Chloride 0.9% 1000 Ml IV 05/13/23 23:29 999 mls/hr .Q1H1M STA Administration Sodium Chloride Confirm 05/13/23 23:00 Sodium Chloride 0.9% 1000 Ml Administered 05/13/23 23:01 Dose 1,000 mls @ ud .ROUTE .STK-MED ONE Ondansetron HCl 4 mg 05/13/23 22:29 05/13/23 23:07 Ondansetron Hcl 4 Mg/2 Ml Vial IV 05/13/23 22:30 4 mg STAT ONE Administration Ondansetron HCl Confirm 05/13/23 23:00 Ondansetron Hcl 4 Mg/2 Ml Vial Administered 05/13/23 23:01 Dose 4 mg .ROUTE .STK-MED ONE Lab/Rad Data: Laboratory Result Diagrams 05/13/23 22:55 05/13/23 22:55 Laboratory Results 05/13/23 05/13/23 05/13/23 Range/Units 23:15 22:55 22:55 WBC (4.0-10.5) x10^3/uL RBC (4.1-5.4) x10^6/uL Hgb (12.0-16.0) g/dL Hct (35-47) % MCV (78-100) fL MCH (26-32) pg MCHC (32-36) g/dL RDW (11.5-14.0) % Plt Count (150-450) x10^3/uL MPV (7.5-11.0) fL Gran % (36.0-66.0) % Immature Gran % (Auto) (0.00-0.4) % Nucleat RBC Rel Count (0.00-0.1) % Eos # (Auto) (0-0.5) x10^3/uL Immature Gran # (Auto) (0.00-0.03) x10^3u/L Absolute Lymphs (auto) (1.0-4.6) x10^3/uL Absolute Monos (auto) (0.0-1.3) x10^3/uL Absolute Nucleated RBC (0.00-0.01) x10^3u/L Lymphocytes % (24.0-44.0) % Monocytes % (0.0-12.0) % Eosinophils % (0.00-5.0) % Basophils % (0.0-0.4) % Absolute Granulocytes (1.4-6.9) x10^3/uL Basophils # (0-0.4) x10^3/uL Sodium (137-145) mmol/L Potassium (3.5-5.1) mmol/L Chloride (98-107) mmol/L Carbon Dioxide (22-30) mmol/L Anion Gap (5-15) MEQ/L BUN (7-17) mg/dL Creatinine (0.52-1.04) mg/dL Estimated GFR ML/MIN Glucose (74-106) mg/dL Lactic Acid 1.0 (0.4-2.0) Calcium (8.4-10.2) mg/dL Magnesium 2.2 (1.6-2.3) mg/dL Total Bilirubin (0.2-1.3) mg/dL AST (14-36) U/L ALT (0-35) U/L Alkaline Phosphatase (38-126) U/L Troponin I < 0.012 (0.000-0.034) ng/mL Serum Total Protein (6.3-8.2) g/dL Albumin (3.5-5.0) g/dL Lipase (23-300) U/L Urine Color (Yellow) Urine Appearance (Clear) Urine pH (4.6-8.0) Ur Specific Wolf (1.005-1.030) Urine Protein (Negative) Urine Glucose (UA) (Negative) mg/dL Urine Ketones (Negative) Urine Blood (Negative) Urine Nitrite (Negative) Urine Bilirubin (Negative) Urine Urobilinogen (0.2) mg/dL Ur Leukocyte Esterase (Negative) U Hyaline Cast (Auto) (0-2) /LPF Urine Microscopic RBC (0-5) /HPF Urine Microscopic WBC (0-5) /HPF Ur Epithelial Cells (None Seen) /HPF Urine Bacteria (None Seen) /HPF Urine Culture Reflexed (NO) Influenza Type A Ag NEGATIVE (NEGATIVE) Influenza Type B Ag NEGATIVE (NEGATIVE) RSV (PCR) NEGATIVE (NEGATIVE) SARS-CoV-2 (PCR) NEGATIVE (NEGATIVE) 05/13/23 05/13/23 05/13/23 Range/Units 22:55 22:55 00:00 WBC 4.2 (4.0-10.5) x10^3/uL RBC 4.09 L (4.1-5.4) x10^6/uL Hgb 11.9 L (12.0-16.0) g/dL Hct 36.7 (35-47) % MCV 89.7 (78-100) fL MCH 29.1 (26-32) pg MCHC 32.4 (32-36) g/dL RDW 13.2 (11.5-14.0) % Plt Count 132 L (150-450) x10^3/uL MPV 10.6 (7.5-11.0) fL Gran % 67.7 H (36.0-66.0) % Immature Gran % (Auto) 0.2 (0.00-0.4) % Nucleat RBC Rel Count 0.0 (0.00-0.1) % Eos # (Auto) 0.15 (0-0.5) x10^3/uL Immature Gran # (Auto) 0.01 (0.00-0.03) x10^3u/L Absolute Lymphs (auto) 0.88 L (1.0-4.6) x10^3/uL Absolute Monos (auto) 0.28 (0.0-1.3) x10^3/uL Absolute Nucleated RBC 0.00 (0.00-0.01) x10^3u/L Lymphocytes % 21.1 L (24.0-44.0) % Monocytes % 6.7 (0.0-12.0) % Eosinophils % 3.6 (0.00-5.0) % Basophils % 0.7 (0.0-0.4) % Absolute Granulocytes 2.82 (1.4-6.9) x10^3/uL Basophils # 0.03 (0-0.4) x10^3/uL Sodium 137 (137-145) mmol/L Potassium 4.2 (3.5-5.1) mmol/L Chloride 103 (98-107) mmol/L Carbon Dioxide 22 (22-30) mmol/L Anion Gap 15.5 H (5-15) MEQ/L BUN 31 H (7-17) mg/dL Creatinine 1.20 H (0.52-1.04) mg/dL Estimated GFR 45.5 ML/MIN Glucose 231 H (74-106) mg/dL Lactic Acid (0.4-2.0) Calcium 8.9 (8.4-10.2) mg/dL Magnesium (1.6-2.3) mg/dL Total Bilirubin 0.60 (0.2-1.3) mg/dL AST 21 (14-36) U/L ALT 18 (0-35) U/L Alkaline Phosphatase 93 (38-126) U/L Troponin I (0.000-0.034) ng/mL Serum Total Protein 6.5 (6.3-8.2) g/dL Albumin 4.0 (3.5-5.0) g/dL Lipase 262 (23-300) U/L Urine Color Yellow (Yellow) Urine Appearance Clear (Clear) Urine pH 7.0 (4.6-8.0) Ur Specific Wolf 1.010 (1.005-1.030) Urine Protein Negative (Negative) Urine Glucose (UA) 500 A (Negative) mg/dL Urine Ketones Negative (Negative) Urine Blood Negative (Negative) Urine Nitrite Negative (Negative) Urine Bilirubin Negative (Negative) Urine Urobilinogen 0.2 (0.2) mg/dL Ur Leukocyte Esterase Negative (Negative) U Hyaline Cast (Auto) NONE SEEN (0-2) /LPF Urine Microscopic RBC 0-2 (0-5) /HPF Urine Microscopic WBC 0-2 (0-5) /HPF Ur Epithelial Cells None Seen (None Seen) /HPF Urine Bacteria None Seen (None Seen) /HPF Urine Culture Reflexed NO (NO) Influenza Type A Ag (NEGATIVE) Influenza Type B Ag (NEGATIVE) RSV (PCR) (NEGATIVE) SARS-CoV-2 (PCR) (NEGATIVE) - Progress Progress Note: 05/13/23 22:33 83 years old female presented in the ER with chief complaint of abdominal pain w ith nausea and vomiting. Patient reports 3 episodes of nonprojectile, nonbilious vomiting with no hematemesis since evening and last episode while in the ambulance. Patient reports pain all over her abdomen specially in the upper and on the left side. Reports feeling dizzy and nauseous all day long. Denies any chest pain palpitations or shortness of breath. No fever or chills reported. Does report feeling weak fatigued tired and dehydrated. Abdominal exam is soft with tenderness in the upper abdomen on the left side. Good bowel sounds in all 4 quadrants. We will give her fluids, symptomatic treatment and obtain acute abdomen work-up. Since patient has been complaining of dizziness and lightheadedness of, will do CT head as well. 05/14/23 0300 she is given symptomatic treatment along with fluids, feeling much better on reevaluation. Normal white count, fairly unremarkable chemistries. No UTI. Patient having mild headache and complaining of some dizziness earlier, I have obtained CT head which is negative for any acute intracranial bleed, midline shift or mass effect. Will be given Zofran for symptomatic relief. Do not think she needs any other work-up and is being discharged with outpatient follow-up. Discussed signs symptoms of worsening needing return to ER which she seems understanding. [facility]. Counseled pt/family regarding: lab results, diagnosis, rad results Medical Desision Making - Diagnostic Testing Diagnostic test were ordered, analyzed, and reviewed by me: Yes Radiological Interpretation: Reviewed by me, Teleradiologist Report - Risk of complications The pt has a mod risk of morbidity or mortality based on: Need for prescription drug management - Departure Departure Disposition: Home Clinical Impression: Generalized abdominal pain, Nausea Condition: Stable Critical Care Time: No Referrals: FAY PIEDRA MD [Primary Care Provider] - Follow up/PCP as directed
[2023-05-13] MEDS ORDERED: Zofran 4 MG/2 ML VIAL ONE (23:00)
[2023-05-13] MEDS ORDERED: TYLENOL 325 MG ONE (23:00)
[2023-05-13] MEDS ORDERED: SUBLIMAZE 100 MCG/2 ML ONE (23:00)
[2023-05-13] MEDS ORDERED: Sodium Chloride 0.9% 1000 ML 1,000 ML ONE (23:00)
[2023-05-13 23:01] LABS: Absolute Neutrophil Ct (ANC) 2.82 x10^3/uL (1.4-6.9); BASOPHIL % 0.7 % (0.0-0.4); Basophil (Absolute #) 0.03 x10^3/uL (0-0.4); Eosinophil % 3.6 % (0.00-5.0); Eosinophil (Absolute #) 0.15 x10^3/uL (0-0.5); Hematocrit 36.7 % (35-47); Hemoglobin 11.9 g/dL (12.0-16.0); IMMATURE GRAN # 0.01 x10^3u/L (0.00-0.03); IMMATURE GRAN % 0.2 % (0.00-0.4); Lymphocyte (Absolute #) 0.88 x10^3/uL (1.0-4.6); Lymphocytes % 21.1 % (24.0-44.0); Mean Cell Volume 89.7 fL (78-100); Mean Corpuscular Hemoglobin 29.1 pg (26-32); Mean Corpuscular Hgb Concent. 32.4 g/dL (32-36); Mean Platelet Volume 10.6 fL (7.5-11.0); Monocyte (Absolute #) 0.28 x10^3/uL (0.0-1.3); Monocytes % 6.7 % (0.0-12.0); Neutrophil % 67.7 % (36.0-66.0); Platelet Count 132 x10^3/uL (150-450); Red Blood Count 4.09 x10^6/uL (4.1-5.4); Red Cell Distribution Width 13.2 % (11.5-14.0); White Blood Count 4.2 x10^3/uL (4.0-10.5)
[2023-05-13 23:17] LABS: ANION GAP 15.5 MEQ/L (5-15); BILIRUBIN,TOTAL 0.6 mg/dL (0.2-1.3); Calcium 8.9 mg/dL (8.4-10.2); Creatinine 1 1.2 mg/dL (0.52-1.04); EST GLOMERULAR FILTRATION RATE 45.5 ML/MIN; Potassium 4.2 mmol/L (3.5-5.1); Total Protein 6.5 g/dL (6.3-8.2)
[2023-05-13 23:29] LABS: MAGNESIUM 2.2 mg/dL (1.6-2.3); TROPONIN < 0.012 ng/mL (0.000-0.034)
[2023-05-13 23:41] LABS: INFLUENZA A NEGATIVE (NEGATIVE); INFLUENZA B NEGATIVE (NEGATIVE); RESPIRATORY SYNCTIAL VIRUS NEGATIVE (NEGATIVE); SARS-CoV-2 Xpert Express NEGATIVE (NEGATIVE)
--- NOTE | 2023-05-14 00:16 | XRAY ---
CLINICAL HISTORY:dizziness COMPARISON:CT dated 03/13/2019. TECHNIQUE:Axial non-contrast CT scan of the brain was performed from the skull base to the high parietal region. Coronal and sagittal reconstructions were also obtained. FINDINGS: No evidence of acute intracranial hemorrhage or major vascular territory infarct. Patchy areas of parenchymal hypoattenuation are observed in the bilateral periventricular white matter regions, which are non-specific and may relate to chronic ischemic microvascular changes. Atherosclerotic calcific disease is seen in the vertebral and internal carotid arteries. The cortical sulci, fissures, basal cisterns, and ventricles are normal in size and configuration. Guy-white matter differentiation is maintained. No midline shifts or deformity. Normal CT appearance of the posterior fossa structures namely the cerebellar hemispheres, brainstem and cerebellar peduncles. The IACs are unremarkable. The cerebello-pontine angles are clear. The pituitary gland, the pineal gland, and the optic chiasm are unremarkable. The osseous structures in the skull base are unremarkable. There is hyperostosis of the inner table of the frontal lobes (hyperostosis frontalis interna). No definite calvarium fractures. Th scanned paranasal sinuses are clear. IMPRESSION: 1. No evidence of acute intracranial hemorrhage or major vascular territory infarct. 2. Patchy areas of parenchymal hypoattenuation in the bilateral periventricular white matter regions, which are non-specific and may relate to chronic ischemic microvascular changes. 3. Atherosclerosis. 4. No interval changes. 5. Hyperostosis frontalis interna. Electronically Signed by: Rosie Laureano MD. (05/13/2023 23:15:21 MANAGER OF MERCHANDISING)
--- NOTE | 2023-05-14 03:46 | XRAY ---
CLINICAL HISTORY:abd pain/vomiting COMPARISON:CT dated 01/07/2021. TECHNIQUE:CT of the abdomen and pelvis was performed in axial plane with sagittal and coronal reconstructed images without intravenous contrast administration. FINDINGS: Lung bases again demonstrate subsegmental atelectasis/scarring and left lower lobe calcified granuloma. No infiltrate or effusion. Heart is not enlarged. Hiatal hernia. Newly developed right lower lung lobe nodule is seen measuring 10 mm. Non-contrasted stomach and bowel loops appear non-obstructed. Stable minimal descending and sigmoid diverticulosis without diverticulitis. Again reported appendectomy, cholecystectomy, and hysterectomy. No free fluid/air. Left kidney remains mildly atrophic with cortical thinning/scarring. Left kidney demonstrates 2 non-obstructing punctate calculi. There remains hepatosplenomegaly, hepatic/splenic calcified granulomas, and small bilateral adrenal adenomas. The liver is seen bulging into the right lung, likely to diaphragamtic hernia/eventration. Pancreas still shows two calcified foci. Remaining right kidney, ureters, and urinary bladder are unremarkable for non-contrast exam. Stable moderate scattered aortoiliac calcifications without AAA. Osseous structures again demonstrate mild degenerative changes throughout the thoracolumbar spine. IMPRESSION: 1. Newly developed right lower lung lobe pulmonary nodule for further CT chest assessment. 2. Stable small hiatal hernia, left renal atrophy with cortical thinning/scarring, 2 non-obstructing left renal micro-calculi, bilateral adrenal adenomas, hepatosplenomegaly, colonic diverticulosis, chronic bony findings, and old granulomatous disease. Electronically Signed by: Rosie Laureano MD. (05/14/2023 00:26:26 CONTENT PRODUCER)
[2023-05-14 04:23] VITALS: BP 169/79; PULSE 61; RESP 15
[2023-05-14 04:25] LABS: ADD URINE CULTURE? NO (NO); Appearance Clear (Clear); Bacteria None Seen /HPF (None Seen); Bilirubin Negative (Negative); Blood Negative (Negative); Epithelial Cells None Seen /HPF (None Seen); Glucose, Urine 500 mg/dL (Negative); Hyaline Casts NONE SEEN /LPF (0-2); Ketones Negative (Negative); Leukocyte Esterase Negative (Negative); Nitrite Negative (Negative); Protein,Urine Dip Negative (Negative); RBC 0-2 /HPF (0-5); Urobilinogen 0.2 mg/dL (0.2); WBC 0-2 /HPF (0-5)
[2023-05-21 23:19] VITALS: O2SAT 98
== END 2023-05-14 03:04 | disposition home or self-care (01) ==
LOC: ED 22:05
DX: R10.84 Generalized abdominal pain (principal); R11.2 Nausea with vomiting, unspecified; R42 Dizziness and giddiness; R53.1 Weakness; E78.5 Hyperlipidemia, unspecified; I10 Essential (primary) hypertension; E11.9 Type 2 diabetes mellitus without complications; Z79.84 Long term (current) use of oral hypoglycemic drugs; Z79.899 Other long term (current) drug therapy; Z20.828 Contact with and (suspected) exposure to other viral communicable diseases
CPT/HCPCS: 0241U; 36000; 36415; 70450; 74176; 80053; 81001; 83605; 83690; 83735; 84484; 85025; 96360; 96374; 96375; 99284; J2405; J3010; A9270-GY